=== PATIENT | female | born 1940 | race Caucasian/White ===

== ENCOUNTER → 2016-10-15 | Outpatient (CLI) | payer MEDICARE ==
[~2016-10-15] MED LIST: ACET-2267 PO; ACET325T49 PO; ALB0.5V IH; AMLO5TAB2 PO; ASPI-983 PO; ATEN100T PO; ATOR40TA70 PO; CHOL10007 PO; CLON0.1T PO; DOXA2TAB PO; FURO40TA4 PO; HYDR12.5 PO; LACT1CAP39 PO; LEVO750T39 PO; LISI10TA2 PO; LOPE2CAP14 PO; LOPE2TAB64 PO; MAGN400T6 PO; MELA1TAB10 PO; METO-333 PO; MICONAZOLE 2% TOP; Miconazole 2% Cream VG; OMEG1CAP24 PO; OMEP20CA12 PO; PANT40TA3 PO; PARO-49 PO; POTA20PA28 PO; POTA20TA15 PO; SUCR1TAB PO; SUCR1TAB36 PO; VITA PO
--- NOTE | 2016-10-15 13:41 | Diagnostic Imaging Report ---
EXAMINATION: DEXA scan. INDICATION: Osteopenia. TECHNIQUE: Bone mineral density estimated based on dual energy radiography over the lumbar spine and femoral necks, was performed. FINDINGS: The lumbar spine T-score is -2.1. T score over the left femoral neck is -3.8 and on the right side is -4.1. The bone density over the lumbar spine is probably overestimated secondary to a degenerative sclerosis. IMPRESSION: Marked osteoporosis. Dictated by: Dictated on workstation # [id number]
== END ==
LOC: RAD 11:24
PROVIDERS: ATTEND Nurse Practitioner Family
DX: M81.0 Age-related osteoporosis without current pathological fracture (principal)
CPT/HCPCS: 77080

== ENCOUNTER → 2016-11-03 | Outpatient (CLI) | payer MEDICARE ==
[~2016-11-03] VITALS: Ht 152.4 cm; Wt 62.1 kg
[~2016-11-03] MED LIST changes: +ALPR0.254 PO; +CARB1DRO OU; +CETI10TA17 PO; +CNC1KV INJ; +DENOSUMAB 60 MG/1 ML (PROLIA) SQ SCH; +FERR142T14 PO; +FLUT16SP22 NSEACH; +FOLI0.8T PO; +GABA-486 PO; +GUAI600T43 PO; +IBUP-2055 PO; +KRIL1CAP2 PO; +LOSA25TA21 PO; +MONT10TA24 PO; +MULT1TAB69 PO; +NYST60PO TP; +POTA10TA6 PO; +VITA80006 PO
[2016-11-03 15:50] VITALS: BP 181/77
== END ==
LOC: SDC 15:27
PROVIDERS: ATTEND Nurse Practitioner Family
DX: M81.0 Age-related osteoporosis without current pathological fracture (principal)
CPT/HCPCS: 96372

== ENCOUNTER → 2017-05-03 | Outpatient (CLI) | payer MEDICARE ==
[~2017-05-03] VITALS: Ht 152.4 cm; Wt 62.1 kg
[~2017-05-03] MED LIST changes: +DENOSUMAB 60 MG/1 ML (PROLIA) SQ ONE; -DENOSUMAB 60 MG/1 ML (PROLIA) SQ SCH
[2017-05-03 14:20] VITALS: BP 149/64
== END ==
LOC: SDC 14:12
PROVIDERS: ATTEND Nurse Practitioner Family
DX: M81.0 Age-related osteoporosis without current pathological fracture (principal)
CPT/HCPCS: 96372

== ENCOUNTER → 2017-05-03 | Outpatient (CLI) | payer MEDICARE ==
[~2017-05-03] MED LIST changes: -DENOSUMAB 60 MG/1 ML (PROLIA) SQ ONE
[2017-05-03 19:17] LABS: BASOPHILS # (AUTO) 0.1 10^3/uL (0.0-0.1); BASOPHILS % (AUTO) 1 % (0-10); EOSINOPHILS # (AUTO) 0.1 10^3/uL (0.0-0.3); EOSINOPHILS % (AUTO) 1 % (0-10); HEMATOCRIT 40 % (35-52); HEMOGLOBIN 13.4 G/DL (11.5-16.0); LYMPHOCYTES # (AUTO) 3.3 X 10^3 (1.0-4.0); LYMPHOCYTES % (AUTO) 37 % (12-44); MEAN CORPUSCULAR HEMOGLOBIN 29 PG (25-34); MEAN CORPUSCULAR HGB CONC 33 G/DL (32-36); MEAN CORPUSCULAR VOLUME 87 FL (80-99); MONOCYTES # (AUTO) 0.6 X 10^3 (0.0-1.0); MONOCYTES % (AUTO) 6 % (0-12); NEUTROPHILS % (AUTO) 55 % (42-75); PLATELET COUNT 291 10^3/uL (130-400); RED BLOOD COUNT 4.63 10^6/uL (4.35-5.85); RED CELL DISTRIBUTION WIDTH 13.3 % (10.0-14.5)
[2017-05-03 19:36] LABS: ALBUMIN 4.7 GM/DL (3.2-4.5); BILIRUBIN,TOTAL 0.5 MG/DL (0.1-1.0); CALCIUM 9.7 MG/DL (8.5-10.1); CREATININE SERUM 0.99 MG/DL (0.60-1.30); POTASSIUM 4.1 MMOL/L (3.6-5.0); TOTAL PROTEIN 7.9 GM/DL (6.4-8.2)
== END ==
LOC: LAB 18:55
PROVIDERS: ATTEND Family Medicine
DX: E53.8 Deficiency of other specified B group vitamins (principal); R53.83 Other fatigue
CPT/HCPCS: 36415; 80053; 82607; 84443; 85025

== ENCOUNTER → 2017-09-27 | Outpatient (CLI) | payer MEDICARE ==
--- NOTE | 2017-09-27 16:15 | Diagnostic Imaging Report ---
PROCEDURE: US carotid duplex, bilateral. TECHNIQUE: Multiple real-time grayscale images were obtained over the carotid arteries in various projections, bilaterally. Additional duplex Doppler and color Doppler images were also obtained. INDICATION: Hypertension. FINDINGS: There are no focally elevated velocities in either internal carotid artery. The ICA/CCA ratios are within normal limits, bilaterally. There is antegrade flow in the vertebral arteries, bilaterally. Grayscale images demonstrate minimal carotid plaque, bilaterally. IMPRESSION: Minimal bilateral carotid plaque however spectral analysis shows no evidence of a hemodynamically significant stenosis in either internal carotid artery. Parameters based on the consensus panel Pate-Scale and Doppler ultrasound criteria published January 2003, Radiology, Volume 229. DOPPLER (peak systolic velocity M/S Right Left CCA .80 .88 ICA Proximal .58 .70 ICA Mid .67 .70 ICA Distal .84 .69 RATIO 1.1 .8 ECA .77 .92 VERT .69 .74 Dictated by: Dictated on workstation # [id number]
== END ==
LOC: RAD 14:35
PROVIDERS: ATTEND Family Medicine
DX: I65.23 Occlusion and stenosis of bilateral carotid arteries (principal); I10 Essential (primary) hypertension
CPT/HCPCS: 93880

== ENCOUNTER 2018-05-20 11:08 | Outpatient (CLI) | payer MEDICARE ==
[~2018-05-20] VITALS: Ht 147.3 cm; Wt 54.5 kg
[~2018-05-20 11:08] MED LIST changes: -AMLO5TAB2 PO; +AMLO5TAB9 PO; -LOSA25TA21 PO; +LOSA25TA41 PO
[2018-05-20] MEDS ORDERED: DENOSUMAB 60 MG/1 ML (PROLIA) SQ SCH (11:17)
[2018-05-20] MEDS ORDERED: DENOSUMAB 60 MG/1 ML (PROLIA) SQ NR (11:29)
[2018-05-20 11:40] VITALS: BP 106/98
== END 2018-05-20 11:40 | disposition home or self-care (01) ==
LOC: SDC 11:08
PROVIDERS: ATTEND Nurse Practitioner Family
DX: M81.0 Age-related osteoporosis without current pathological fracture (principal)
CPT/HCPCS: 96372

== ENCOUNTER → 2018-12-07 | Outpatient (CLI) | payer MEDICARE ==
[~2018-12-07] VITALS: Ht 149.9 cm; Wt 54.1 kg
[~2018-12-07] MED LIST changes: +DENOSUMAB 60 MG/1 ML (PROLIA) SQ ONE; -OMEP20CA12 PO; +OMEP20CA13 PO
[2018-12-07 15:43] VITALS: BP 169/78
== END ==
LOC: SDC 15:25
PROVIDERS: ATTEND Nurse Practitioner Family
DX: M81.0 Age-related osteoporosis without current pathological fracture (principal)
CPT/HCPCS: 96372

== ENCOUNTER 2019-05-04 12:45 | Inpatient (IN) | payer MEDICARE ==
[~2019-05-04] VITALS: Ht 149.9 cm; Wt 55.2 kg
[~2019-05-04 12:45] MED LIST changes: -DENOSUMAB 60 MG/1 ML (PROLIA) SQ ONE; -IBUP-2055 PO; +IBUP-2473 PO; -KRIL1CAP2 PO; +KRIL1CAP4 PO; -MAGN400T6 PO; +MAGN400T8 PO; -MONT10TA24 PO; +MONT10TA26 PO; -OMEP20CA13 PO; +OMEP20CA18 PO
[2019-05-04] MEDS ORDERED: ONDANSETRON 4 MG (ZOFRAN) ORAL DISSOLVE TAB PO PRN (13:45)
[2019-05-04] MEDS ORDERED: LOPERAMIDE 2 MG (IMODIUM) TABLET PO PRN (13:45)
[2019-05-04] MEDS ORDERED: MELATONIN 3 MG TABLET PO PRN (13:45)
[2019-05-04] MEDS ORDERED: BISACODYL 10 MG SUPP (DULCOLAX) PR PRN (13:45)
[2019-05-04] MEDS ORDERED: DOCUSATE SODIUM 100 MG (COLACE) CAP PO PRN (13:45)
[2019-05-04] MEDS ORDERED: FLEET ENEMA ADULT 1 EA BTL PR PRN (13:45)
[2019-05-04] MEDS ORDERED: LACTULOSE SYRUP 10GM/15ML (ENULOSE) 30ML UDC PO PRN (13:45)
[2019-05-04] MEDS ORDERED: diphenhydrAMINE 25 MG TAB (BENADRYL) PO PRN (13:45)
[2019-05-04] MEDS ORDERED: ALPRAZolam 0.25 MG (XANAX) TAB PO PRN (13:45)
[2019-05-04] MEDS ORDERED: CALCIUM CARBONATE 500 MG (TUMS) TAB.CHEW PO PRN (13:45)
[2019-05-04] MEDS ORDERED: guaiFENesin/CODEINE (ROBITUSSIN AC) 10ML UDC PO PRN (13:45)
--- NOTE | 2019-05-04 15:10 | NUR ---
RISA LO admitted to room 229-1, with an admitting diagnosis of METABOLIC ENCEPHALOPATHY, on 05/04/19 from via , accompanied by STAFF. RISA LO introduced to surroundings, call light, bed controls, phone, TV, temperature control, lights, meal times, smoking policy, visitor policy, side rail policy, bathrooms and showers. Patient Rights given to patient in the handbook.RSIA LO verbalizes understanding that [facility] is not responsible for the loss or damage to any personal effects or valuables that are kept in the patients posession during their hospitalization. The following Patient Care Plans were discussed with the PT: Discharge Planning, FALL RISK AND ACTIVITY INTOLERANCE. RISA LO verbalizes understanding of Interdisciplinary Patient Education. Patient received Patient Rights Booklet, which includes Privacy Act Statement and Data Collection Information Summary.
[2019-05-04 15:43] VITALS: BP 172/78
--- NOTE | 2019-05-04 15:51 | Physical Therapy Evaluation ---
PT Evaluation-General Medical Diagnosis Admission Date May 04, 2019 at 15:15 Medical Diagnosis: acute metabolic encephalopathy Onset Date: May 01, 2019 Therapy Diagnosis Therapy Diagnosis: generalized weakness/debility/impaired mobility Height/Weight Height (Feet): 4 Height (Inches): 10.00 Weight (Pounds): 120 Weight (Ounces): 4.0 Precautions Precautions/Isolations: Fall Prevention, Standard Precautions Referral Physician: Brisa Reason for Referral: Evaluation/Treatment Medical History Pertinent Medical History: Arthritis, CVA, HTN Additional Medical History lactic acidosis/JULIO C/hyponatremia Current History transfer from [facility] due to fall at home resulting in multiple contusions Reviewed History: Yes Social History Home: Single Level Current Living Status: Alone Entry Into Home: Stairs With Railing PT Steps Into Home: 1 Prior Prior Level of Function SCALE: Activities may be completed with or without assistive devices. 1-Khgajpbpvf-xknmiem completes the activity by him/herself with no assistance from a helper. 5-Set-up or Clean-up Assistance-helper sets up or cleans up; patient completes activity. [place] assists only prior to or following the activity. 4-Supervision or Touching Assistance-helper provides verbal cues and/or touching/steadying and/or contact guard assistance as patient completes activity. Assistance may be provided throughout the activity or intermittently. 3-Partial/Moderate Assistance-helper does LESS THAN HALF the effort. [place] lifts, holds or supports trunk or limbs, but provides less than half the effort. 2-Substantial/Maximal Assistance-helper does MORE THAN HALF the effort. [place] lifts or holds trunk or limbs and provides more than half the effort. 6-Pvrqxdnbs-fsysor does ALL the effort. Patient does none of the effort to complete the activity. Or, the assistance of 2 or more helpers is required for the patient to complete the activity. If activity was not attempted, code reason: 7-Patient Refused. 9-Not Applicable-not attempted and the patient did not perform the activity before the current illness, exacerbation or injury. 10-Not Attempted due to Environmental Limitations-(lack of equipment, weather restraints, etc.). 88-Not Attempted due to Medical Conditions or Safety Concerns. Bed Mobility: 6 Transfers (B,C,W/C): 6 Gait: 6 Stairs: 6 Indoor Mobility (Ambulation): Independent Stairs: Independent Prior Devices Use: Walker assistance at home with self care, meals and mobility PT Evaluation-Current Subjective Patient is confused, however, agreeable to participate with skilled therapy. Pain Numeric Pain Scale: 0-No Pain Location: No Pain Reported Objective Patient Orientation: Confused ROM/Strength ROM Lower Extremities bilateral LE WFL Strength Lower Extremities 3/5 grossly bilateral LE Integumentary/Posture Integumentary refer to nursing notes Bowel Incontinence: No Bladder Incontinence: Yes Posture kyphotic Neuromuscular (Tone, Coordination, Reflexes) noted tremor bilateral UE's/gross coordination intact Sensory Vision: Wears Glasses Hearing: Functional Sensation Right Lower Extremit: Intact Sensation Left Lower Extremity: Intact Transfers Roll Left to Right (QC): 5 Sit to Lying (QC): 5 Lying to Sitting/Side of Bed(Q: 5 Sit to Stand (QC): 4 Chair/Jgb-nm-Jkfvb Xfer(QC): 4 Toilet Transfer: 3 Car Transfer (QC): 2 Gait Does the Patient Walk?: Yes Mode of Locomotion: Walk Anticipated Mode of Locomotion: Walk Walk 10 feet (QC): 3 Walk 50 ft with 2 Turns(QC): 3 Walk 150 ft (QC): 88 Walking 10ft/uneven surface-QC: 3 Distance: 50' Gait Assistive Device: FWW Comments/Gait Description slow, shuffle gait sequence Wheelchair Training Does the Pt Use a Wheelchair?: No Stairs #of Steps: 1 1 Step (curb) (QC): 3 4 Steps (QC): 9 12 Steps (QC): 9 Walking Assistive Device: Walker Balance Sitting Static: Normal Sitting Dynamic: Normal Standing Static: Fair Standing Dynamic: Fair Picking up an Object (QC): 88 Treatment assisted with toileting to cleanse patient after use. Assistance to pull pants up and down due to confusion and inability to complete task. Assessment/Needs 78 y.o. female, will benefit from skilled PT to address functional strength and mobility to improve current LOF to safely return to home or care facility at maximum LOF. Rehab Potential: Fair PT Snf Goals Scientific Advisor Goals PT Snf Goals Time Frame: Jun 03, 2019 Roll Left & Right (QC): 6 Sit to Lying (QC): 6 Lying-Sitting on Side/Bed(QC): 6 Sit to Stand (QC): 5 Chair/Kmr-ev-Ozmzg Xfer(QC): 5 Toilet Transfer (QC): 5 Car Transfer (QC): 5 Does the Patient Walk: Yes Walk 10 feet (QC): 5 Walk 50ft with 2 Turns (QC): 5 Walk 150 ft (QC): 5 Walking 10ft on Uneven Surface: 5 1 Step (curb) (QC): 5 4 Steps (QC): 9 12 Steps (QC): 9 Picking up an Object (QC): 5 PT Plan Problem List Problem List: Activity Tolerance, Functional Strength, Safety, Balance, Gait, Transfer, Bed Mobility Treatment/Plan Treatment Plan: Continue Plan of Care Treatment Plan: Bed Mobility, Concurrent Therapy, Education, Functional Activity Oliverio, Functional Strength, Group Therapy, Gait, Safety, Therapeutic Exercise, Transfers Treatment Duration: Jun 03, 2019 Frequency: At least 5 of 7 days/Wk (IRF) Estimated Hrs Per Day: 1.5 hours per day Patient and/or Family Agrees t: Yes Safety Risks/Education Patient Education: Safety Issues Teaching Recipient: Patient Teaching Methods: Discussion Response to Teaching: Reinforcement Needed Time/GCodes Time In: 1510 Time Out: 1540 Total Billed Treatment Time: 30 Total Billed Treatment 1 visit EVModC 15 min FA 15 min JOVITA ABARCA PT May 04, 2019 15:51
[2019-05-04] MEDS ORDERED: SUCR1TAB36 PO (16:17)
[2019-05-04] MEDS ORDERED: [UNRECOGNIZED DRUG - CODE] PO (16:17)
[2019-05-04] MEDS ORDERED: POTA20PA28 PO (16:17)
[2019-05-04] MEDS ORDERED: ACET-2650 PO (16:17)
[2019-05-04] MEDS ORDERED: PANT40TA2 PO (16:17)
[2019-05-04] MEDS ORDERED: ASPI-999 PO (16:17)
[2019-05-04] MEDS ORDERED: DULO20CA PO (16:17)
[2019-05-04] MEDS ORDERED: ALBU2.5V4 NEB (16:17)
[2019-05-04] MEDS: ENOXAPARIN 40 MG/0.4 ML (LOVENOX) SYR SC SCH (17:33)
--- NOTE | 2019-05-04 17:44 | PM&R Post Admission Assessment ---
PM&R HP Date of Visit: May 04, 2019 Time of Visit: 17:45 History of Present Illness CC: Metabolic encephalopathy in need of recovery in IRF HPI: This is a 78yoWF clinic patient of Dr Tinsley who lives at home but family heavily involved in her care including meals on wheels, daughter organizes her medication with set up, personal care assistants come in frequently in the home to help bathe and manage her other needs who presents to the IRF after a hospital course at [facility] where she was brought from her home in [place] for AMS. Initially she was assessed to have had a CVA but upon further w/u MRI disproved an acute CVA but identified a previous old event c/w small strokes. She sees Dr Tinsley every month due to her complex medical issues and also sees Dr Eckert for severe neuropathy and toe dysfunction bilaterally. She uses a walker at home and appears to be very debilitated and frail. Patient is on a enormous number of medications so we will try to minimize meds since it appears that the AMS is from medication side effects and family and patient are willing to work through the details tomorrow. Norvasc given 1 dose 5mg now for elevated BP. Past Fdbpnjn-Conpfx-Hmkvcx Hx Past Med/Social Hx: Reviewed Nursing Past Med/Soc Hx, Reviewed and Corrections made Patient Social History Marrital Status: single Employed/Student: retired Alcohol Use: Denies Use Recreational Drug Use: No Smoking Status: Never a Smoker 2nd Hand Smoke Exposure: No Physical Abuse Screen: No Sexual Abuse: No Recent Foreign Travel: No Contact w/other who traveled: No Recent Hopitalizations: No Recent Infectious Disease Expo: No Immunizations Up To Date Tetanus Booster (TDap): Unknown Date of Pneumonia Vaccine: Nov 08, 2014 Date of Influenza Vaccine: Dec 13, 2018 Seasonal Allergies Seasonal Allergies: No Past Medical History Surgeries: Bowel Surgery, Hysterectomy, Orthopedic Respiratory: Pneumonia Currently Using CPAP: No Currently Using BIPAP: No Cardiac: High Cholesterol, Hypertension Neurological: Neuropathy, TIA Reproductive: Yes (complete hysterectomy in her 20's r/t infection "that didn't clear up") Sexually Transmitted Disease: No HIV/AIDS: No Genitourinary: Bladder Infection Gastrointestinal: Gastroesophageal Reflux, Chronic Constipation, Chronic Diarrhea Musculoskeletal: Osteoporosis, Arthritis, Chronic Back Pain, Fractures HEENT: Cataract, Macular Degeneration Loss of Vision: Bilateral Hearing Impairment: Hard of Hearing Psychosocial: Sleep Difficulties, Anxiety, Depression Family History Cardiovascular disease 19 FATHER Heart Disease, Hypertension Prior Level of Function Bed Mobility: 6 Transfers: 6 Gait: 6 Stairs: 6 Indoor Mobility (Ambulation): Independent Stairs: Independent Prior Devices Use: Walker Current Level of Fuctioning Roll Left to Right: 5 Sit to Lyin Lying to Sitting/Side of Bed: 5 Sit to Stand: 4 Chair/Wzw-qh-Gwstc Xfer: 4 Car Transfer: 2 Does the Patient Walk: Yes Mode of Locomotion: Walk Anticipated Mode of Locomotion: Walk Walk 10 feet: 3 Walk 50 ft with 2 Turns: 3 Walk 150 ft: 88 Walking 10ft on uneven surface: 3 Gait Assistive Device: FWW Does the Pt Use a Wheelchair: No #of Steps: 1 1 Step (curb): 3 4 Steps: 9 Walking Assistive Device: Walker 12 Steps: 9 Picking up an Object: 88 PM&R Allergy/Meds/Data Review Allergies Coded Allergies: tetracycline (Verified Allergy, Mild, 05/04/19) rash Home Medications Scheduled Acetaminophen (Tylenol Arthritis), 650 MG PO Q6H, (Reported) Albuterol Sulfate (Albuterol Sulfate), 2.5 MG INH QID, (Reported) Amlodipine Besylate (Amlodipine Besylate), 5 MG PO DAILY, (Reported) Aspirin (Aspirin), 81 MG PO DAILY, (Reported) Atenolol (Tenormin), 100 MG PO DAILY, (Reported) Atorvastatin Calcium (Atorvastatin Calcium), 40 MG PO HS, (Reported) Cetirizine HCl (Cetirizine HCl), 10 MG PO DAILY, (Reported) Cholecalciferol (Vitamin D3) (Vitamin D3), 1,000 UNIT PO 1200, (Reported) Cyanocobalamin (Cyanocobalamin Injection), 1 ML INJ MONTHLY, (Reported) Duloxetine HCl (Cymbalta), 20 MG PO HS, (Reported) Ferrous Sulfate (Slow Fe), 142 MG PO DAILY, (Reported) Fluticasone Propionate (Fluticasone Propionate), 1 SPRAY NSEACH BID, (Reported) Folic Acid (Folic Acid), 0.8 MG PO BID, (Reported) Gabapentin (Gabapentin), 100 MG PO 1200, (Reported) Gabapentin (Gabapentin), 200 MG PO HS, (Reported) Guaifenesin (Mucinex), 600 MG PO BID, (Reported) Krill Oil/[place]-3/Dha/Epa ([place]-3 Krill Oil Softgel), 1 CAP PO HS, (Reported) Lactobacillus Rhamnosus GG (Culturelle), 1 CAP PO 1200, (Reported) Losartan Potassium (Losartan Potassium), 25 MG PO DAILY, (Reported) Magnesium Oxide (Magnesium Oxide), 400 MG PO BID, (Reported) Melatonin/Pyridoxine (Melatonin 3 mg Tablet), 1 TAB PO HS, (Reported) Metoprolol Tartrate (Metoprolol Tartrate), 12.5 MG PO BID, (Reported) Montelukast Sodium (Montelukast Sodium), 10 MG PO HS, (Reported) Multivitamin (Multivitamins), 1 TAB PO 1200, (Reported) Omeprazole (Omeprazole), 20 MG PO BID, (Reported) Pantoprazole Sodium (Protonix), 40 MG PO BID, (Reported) Potassium Chloride (Klor-Con 10), 10 MEQ PO BID, (Reported) Potassium Chloride (Potassium Chloride), 20 MEQ PO BID WITH MEALS, (Reported) Sucralfate (Sucralfate), 1 GM PO ACHS, (Reported) Sucralfate (Carafate), 1 GM PO DAILY, (Reported) Vitamin A (Vitamin A), 8,000 UNIT PO DAILY, (Reported) Scheduled PRN Alprazolam (Alprazolam), 0.25 MG PO HS PRN for SLEEP, (Reported) Carboxymethylcellulose Sodium (Refresh Plus), 1 DROP OU PRN PRN for DRY EYES, (Reported) Ibuprofen (Ibuprofen), 200-400 MG PO PRN PRN for PAIN-MILD, (Reported) Nystatin (Nystop), TP QID PRN for RASH, (Reported) Miscellaneous Medications Losartan Potassium (Losartan Potassium), (Reported) Current Medications Current Medications Reviewed Review of Systems Constitutional: see HPI, dizziness, malaise, weakness, weight loss EENTM: no symptoms reported Respiratory: no symptoms reported Cardiovascular: no symptoms reported Gastrointestinal: diarrhea Genitourinary: no symptoms reported Musculoskeletal: back pain, joint pain, muscle pain, muscle stiffness, muscle cramps Skin: no symptoms reported Psychiatric/Neurological: No Symptoms Reported, Anxiety, Paresthesia, Weakness, Other (numbness, burning of feet) All Other Systems Reviewed Negative Unless Noted: Yes Physical Exam Physical Exam Vital Signs Vital Signs - First Documented 05/04/19 15:43 Temp 37.2 Pulse 95 Resp 20 B/P (MAP) 172/78 Pulse Ox 95 O2 Delivery Room Air Capillary Refill : Height, Weight, BMI Height: 4'10.00" Weight: 120lbs. 4.0oz. [id number]; 24.56 BMI Method:Stated General Appearance: No Apparent Distress, WD/WN, Chronically ill, Thin, Other (slow responses appears chronic, frail, pale) Eyes: Bilateral Eye Normal Inspection, Bilateral Eye PERRL HEENT: PERRL/EOMI, Normal ENT Inspection, Pharynx Normal Neck: Full Range of Motion, Normal Inspection, Non Tender, Supple, Carotid Bruit Respiratory: Chest Non Tender, Lungs Clear, Normal Breath Sounds, No Accessory Muscle Use, No Respiratory Distress Cardiovascular: Regular Rate, Rhythm, No Edema, No Gallop, No JVD, No Murmur, Normal Peripheral Pulses Gastrointestinal: Normal Bowel Sounds, No Organomegaly, No Pulsatile Mass, Non Tender, Soft Back: Normal Inspection, No CVA Tenderness, No Vertebral Tenderness Extremity: Normal Capillary Refill, Normal Inspection, Normal Range of Motion, Non Tender, No Calf Tenderness, No Pedal Edema Neurologic/Psychiatric: Alert, Oriented x3, No Motor/Sensory Deficits, costumer assistant II- XII Norm as Tested, Abnormal Gait, Depressed Affect, Sensory Deficit (bilateral feet and toes) Skin: Normal Color, Warm/Dry Lymphatic: No Adenopathy PM&R Medical Assessment & Plan REHAB/MEDICAL ASSESSMENT AND PLAN: REHAB IMPAIRMENT GROUP: Metabolic encephalopathy ETIOLOGIC DIAGNOSIS: Metabolic encephalopathy The comorbidities that impact the patients function and/or functional outcome by: Frail status, multiple medications, chronic debility, fall risk, neuropathy REHAB PLAN: The patient is being admitted to our comprehensive inpatient rehabilitation facility and can tolerate the intensity of service consisting of at least: 180 minutes of therapy a day, 5 out of 7 days a week Rehab treatment will consist of: PT OT ST will all work to improve patient's stamina and mobility and work on cognition and prevent falls in order to return home The patient/family has a good understanding of our discharge process and will benefit from an interdisciplinary inpatient rehabilitation program. The patient has potential to make improvement and is in need of at least two of the following multidisciplinary therapies including but not limited to physical, occupational, speech, and prosthetics and orthotics. Additionally the patient will need services from respiratory, nutritional services, wound care, psychology, etc. (Customize this to each patient). Given the patients complex condition and risk of further medical complications, rehabilitation services cannot be safely or effectively provided at a lower level of care such as a custodial facility. BARRIERS TO DISCHARGE: Frail status and lives at home alone but has multiple facets for outside support ESTIMATED LOS: 7 days DISPOSITION: Home RELEVANT CHANGES SINCE PREADMISSION SCREENING: I have compared the patients medical and functional status at the time of the preadmission screening and there are: no changes PROGNOSIS: Good REHABILITATION GOALS: 1. PT OT ST will all work to improve patient's stamina and mobility and work on cognition and prevent falls in order to return home All the above goals were reviewed with the patient and he/she is in agreement. By signing this document, I acknowledge that I have personally performed a full physical examination on this patient within 24 hours of admission to this inpatient rehabilitation facility and have determined the patient to be able to tolerate the above course of treatment at an intensive level for a reasonable period of time. I will be completing a detailed individualized Plan of Care for this patient by day #4 of the patients stay based upon the Preadmission Screen, the Post-Admission Evaluation, and the therapy evaluations. Admission Dx/Comorbidities: (1) Encephalopathy ICD Codes: G93.40 - Encephalopathy, unspecified (2) Frailty ICD Codes: R54 - Age-related physical debility (3) Neuropathy ICD Codes: G62.9 - Polyneuropathy, unspecified (4) Polypharmacy ICD Codes: Z79.899 - Other lobsterman (current) drug therapy (5) Falls ICD Codes: W19.XXXA - Unspecified fall, initial encounter (6) Cerebrovascular disease ICD Codes: I67.9 - Cerebrovascular disease, unspecified (7) Hypertension ICD Codes: I10 - Essential (primary) hypertension CAIT RAMIREZ DO May 04, 2019 17:44
[2019-05-04] MEDS ORDERED: LOSA100T57 (17:49)
[2019-05-04 18:00] VITALS: BP 174/76
[2019-05-04] MEDS ORDERED: amLODIPine 5 MG (NORVASC) TAB PO NR (18:00)
[2019-05-04] MEDS: SENNA W/DOCUSATE (SENOKOT S) TABLET PO SCH (20:07)
[2019-05-04] MEDS: polyethylene glycoL POWDER 17 GM (MIRALAX) PACK PO SCH (20:07)
[2019-05-04] MEDS: DOCUSATE SODIUM 100 MG (COLACE) CAP PO SCH (20:07)
[2019-05-05] MEDS ORDERED: ACETAMINOPHEN 325 MG TABLET ONE (00:05)
[2019-05-05] MEDS: ACETAMINOPHEN 325 MG TABLET PO PRN ×2 (00:17→10:16)
[2019-05-05 05:19] VITALS: BP 164/76
[2019-05-05 05:20] LABS: BASOPHILS % (AUTO) 0 % (0-10); EOSINOPHILS # (AUTO) 0.2 10^3/uL (0.0-0.3); EOSINOPHILS % (AUTO) 2 % (0-10); HEMATOCRIT 32 % (35-52); HEMOGLOBIN 10.1 G/DL (11.5-16.0); LYMPHOCYTES # (AUTO) 1.7 X 10^3 (1.0-4.0); LYMPHOCYTES % (AUTO) 17 % (12-44); MEAN CORPUSCULAR HEMOGLOBIN 29 PG (25-34); MEAN CORPUSCULAR HGB CONC 32 G/DL (32-36); MEAN CORPUSCULAR VOLUME 92 FL (80-99); MEAN PLATELET VOLUME 9.3 FL (7.4-10.4); MONOCYTES # (AUTO) 0.9 X 10^3 (0.0-1.0); MONOCYTES % (AUTO) 9 % (0-12); NEUTROPHILS # (AUTO) 7.4 X 10^3 (1.8-7.8); NEUTROPHILS % (AUTO) 72 % (42-75); PLATELET COUNT 247 10^3/uL (130-400); RED CELL DISTRIBUTION WIDTH 12.9 % (10.0-14.5); WHITE BLOOD COUNT 10.3 10^3/uL (4.3-11.0)
[2019-05-05 05:38] LABS: ALBUMIN 3.6 GM/DL (3.2-4.5); BILIRUBIN,TOTAL 0.4 MG/DL (0.1-1.0); CALCIUM 10.2 MG/DL (8.5-10.1); CREATININE SERUM 0.91 MG/DL (0.60-1.30); POTASSIUM 4.4 MMOL/L (3.6-5.0); TOTAL PROTEIN 6.1 GM/DL (6.4-8.2)
[2019-05-05] MEDS ORDERED: amLODIPine 5 MG (NORVASC) TAB PO SCH (09:00)
--- NOTE | 2019-05-05 09:31 | Occupational Therapy Eval ---
OT Evaluation-General/PLF Medical Diagnosis Admission Date May 04, 2019 at 15:15 Medical Diagnosis: acute metabolic encephalopathy Onset Date: May 01, 2019 Therapy Diagnosis Therapy Diagnosis: Decreased ADL function Height/Weight Height (Feet): 4 Height (Inches): 10.00 Weight (Pounds): 120 Weight (Ounces): 4.0 Precautions Precautions/Isolations: Fall Prevention, Standard Precautions Safety Interventions: Bed Exit Alarm, Reorient-PRN Weight Bear Status Weight Bearing Restriction: Weight Bearing/Tolerated Referral Physician: Brisa Referral Reason: Activity Tolerance, Self Care, Evaluation/Treatment, Strengthening/ROM Medical History Pertinent Medical History: Arthritis, CVA, HTN Additional Medical History high cholesterol, HTN, neuropathy, arthritis, macular degeneration, anx/ depression, [place] Current History Recent fall when pt attempted to pick item off floor, states walker rolled away from her and pt called daughter from floor. Pt admitted to [facility] with AMS/ Reviewed History: Yes Social History Home: Single Level Current Living Status: Alone Entry Into Home: Stairs With Railing Steps Into Home: 1 ADL-Prior Level of Function SCALE: Activities may be completed with or without assistive devices. 2-Ptsjbzccqb-kvsjbbl completes the activity by him/herself with no assistance from a helper. 5-Set-up or Clean-up Assistance-helper sets up or cleans up; patient completes activity. [place] assists only prior to or following the activity. 4-Supervision or Touching Assistance-helper provides verbal cues and/or touching/steadying and/or contact guard assistance as patient completes activity. Assistance may be provided throughout the activity or intermittently. 3-Partial/Moderate Assistance-helper does LESS THAN HALF the effort. [place] lifts, holds or supports trunk or limbs, but provides less than half the effort. 2-Substantial/Maximal Assistance-helper does MORE THAN HALF the effort. [place] lifts or holds trunk or limbs and provides more than half the effort. 6-Zavpqsrwe-ifvuav does ALL the effort. Patient does none of the effort to complete the activity. Or, the assistance of 2 or more helpers is required for the patient to complete the activity. If activity was not attempted, code reason: 7-Patient Refused. 9-Not Applicable-not attempted and the patient did not perform the activity before the current illness, exacerbation or injury. 10-Not Attempted due to Environmental Limitations-(lack of equipment, weather restraints, etc.). 88-Not Attempted due to Medical Conditions or Safety Concerns. ADL PLOF Comments Pt receives assist with showering/ dressing 2x per week. Pt states aide assists and completes all of showering/ dressing. Pt receives meals on wheels 5/7 days, does not leave home wihtout assist. Self Care: Needed Some Help Functional Cognition: Independent DME/Equipment: Bath Chair, Grab Bars, Shower, Tall Toilet DME/Equipment Comments 2 walkers, grab bars in shower/ near toilet, shower, shower chair Occupation: retired Drive Self: No Leisure Interests: cat OT Current Status Subjective Pt seen in recliner chair, grandson present. Pt alert and orientedx3. Pt agrees to OT tx session and eval. Mental Status/Objective Patient Orientation: Person, Place, Situation Current Glasses/Contacts: Yes Hearing Aids: No Dentures/Partials: Yes Hand Dominance: Right Upper Extremity ROM WFL : BUE ~120* shoulder flexion Upper Extremity Coordination WFL BUE Upper Extremity Sensation WFL BUE states at times pt's fingers and cheeks become numb Upper Extremity Strength Decreased bilaterally (4-/5) ADL-Treatment Eating (QC): 4 (Able to complete with handing drink to pt. Pt states she does not have any issues eating at home) Oral Hygiene (QC): 6 (completes in chair prior to session.) Shower/Bathe Self (QC): 2 (Max A for LB/ back/ bottom/ hair- pt requires max A for drying off) Upper Body Dressing (QC): 5 (s/u) Lower Body Dressing (QC): 2 (max A) On/Off Footwear (QC): 2 (max A ) Toileting Hygiene (QC): 3 (CGA throughout, mod a for thoroughness.) Other Treatments Pt educated on OT role and ARU expectations. Pt completes eval in chair, good historian. Pt completes UB ROM/ MMT screening. Pt agreeable to all ADLs this morning. Pt completes all ADLs with increased time, derick cream applied under breasts, on bottom/ elisa area per pt request. Pt states she is able to complete clothing changing at home, plan to complete AE training for safer completion due to fall. Pt completes shower/ hair brushing and returns to recliner chair. All needs met, call light in reach. Education OT Patient Education: Correct positioning, Energy conservation, Modified ADL techniques, Purpose of tx/functional activities, Rehab process, Safety issues Teaching Recipient: Patient Teaching Methods: Demonstration, Discussion Response to Teaching: Verbalize Understanding, Return Demonstration, Reinforcement Needed OT Short Term Goals Short Term Goals Upper body dressin Lower body dressin OT Loss Prevention Analyst Goals Loss Prevention Analyst Goals Time Frame: May 19, 2019 Eating (QC): 6 Oral Hygiene (QC): 6 Toileting Hygiene (QC): 6 Shower/Bathe Self (QC): 6 Upper Body Dressing (QC): 6 Lower Body Dressing (QC): 6 On/Off Footwear (QC): 6 Additional Goals: 1-Demonstrate ADL Tasks, 2-Verbalize Understanding, 3- ImproveStrength/Oliverio 1=Demonstrate adherence to instructed precautions during ADL tasks. 2=Patient will verbalize/demonstrate understanding of assistive devices/modifications for ADL. 3=Patient will improve strength/tolerance for activity to enable patient to perform ADL's. OT Education/Plan Problem List/Assessment Assessment: Decreased Activ Tolerance, Decreased UE Strength, Impaired Funct Balance, Impaired I ADL's, Impaired Self-Care Skills Discharge Recommendations Plan/Recommendations: Continue POC Therapy Discharge Recommendati: Scheduled Assistance Equpiment Recommendations-D/C: Hip Kit Treatment Plan/Plan of Care Treatment,Training & Education: Yes Patient would benefit from OT for education, treatment and training to promote independence in ADL's, mobility, safety and/or upper extremity function for ADL's. Plan of Care: ADL Retraining, Caregiver Training, Functional Mobility, Group Exercise/Act as Ind, UE Funct Exercise/Act Treatment Duration: May 19, 2019 Frequency: At least 5 of 7 days/Wk (IRF) Estimated Hrs Per Day: 1.5 hours per day Agreement: Yes Rehab Potential: Fair Time/GCodes Start Time: 08:00 Stop Time: 09:30 Total Time Billed (hr/min): 90 Billed Treatment Time 1, EVM (15), ADL 5 (75), 90 YULIA SULLIVAN OTR May 05, 2019 09:31
--- NOTE | 2019-05-05 09:41 | PM&R Progress Note ---
Subjective HPI/CC On Admission Date Seen by Provider: May 05, 2019 Time Seen by Provider: 09:45 Subjective/Events-last exam Patient overall improved Lifeline recommended once she DC home Hgb 10.6 and stable Bed alarm on at night Dr Tinsley minimized her meds and we talked about it in-depth Mild tremor noted no change from baseline Checked meds and labs Reviewed therapy notes Conferred with utility lineman of Systems General: Fatigue Neurological: Confusion Objective Exam Vital Signs Vital Signs Date Time Temp Pulse Resp B/P (MAP) Pulse Ox O2 Delivery O2 Flow Rate FiO2 05/06/19 09:00 Room Air 05/06/19 05:38 37.2 82 18 158/72 (100) 94 Capillary Refill : Less Than 3 Seconds General Appearance: No Apparent Distress, WD/WN, Chronically ill, Thin, Other (slow responses appears chronic, frail, pale) HEENT: PERRL/EOMI, Normal ENT Inspection, Pharynx Normal Neck: Full Range of Motion, Normal Inspection, Non Tender, Supple, Carotid Bruit Respiratory: Chest Non Tender, Lungs Clear, Normal Breath Sounds, No Accessory Muscle Use, No Respiratory Distress Cardiovascular: Regular Rate, Rhythm, No Edema, No Gallop, No JVD, No Murmur, Normal Peripheral Pulses Gastrointestinal: Normal Bowel Sounds, No Organomegaly, No Pulsatile Mass, Non Tender, Soft Back: Normal Inspection, No CVA Tenderness, No Vertebral Tenderness Extremity: Normal Capillary Refill, Normal Inspection, Normal Range of Motion, Non Tender, No Calf Tenderness, No Pedal Edema Neurologic/Psychiatric: Alert, Oriented x3, No Motor/Sensory Deficits, estimator lumber II- XII Norm as Tested, Abnormal Gait, Depressed Affect, Sensory Deficit (bilateral feet and toes) Skin: Normal Color, Warm/Dry Lymphatic: No Adenopathy Results/Procedures Lab Laboratory Tests 05/06/19 05:31 Patient resulted labs reviewed. FIM Transfers Therapy Code Descriptions/Definitions Functional [place] Measure: 0=Not Assessed/NA 4=Minimal Assistance 1=Total Assistance 5=Supervision or Setup 2=Maximal Assistance 6=Modified [place] 3=Moderate Assistance 7=Complete IndependenceSCALE: Activities may be completed with or without assistive devices. 3-Dvoulnknwv-coxtvou completes the activity by him/herself with no assistance from a helper. 5-Set-up or Clean-up Assistance-helper sets up or cleans up; patient completes activity. [place] assists only prior to or following the activity. 4-Supervision or Touching Assistance-helper provides verbal cues and/or touching/steadying and/or contact guard assistance as patient completes activity. Assistance may be provided throughout the activity or intermittently. 3-Partial/Moderate Assistance-helper does LESS THAN HALF the effort. [place] lifts, holds or supports trunk or limbs, but provides less than half the effort. 2-Substantial/Maximal Assistance-helper does MORE THAN HALF the effort. [place] lifts or holds trunk or limbs and provides more than half the effort. 0-Frlkysppg-kropdz does ALL the effort. Patient does none of the effort to complete the activity. Or, the assistance of 2 or more helpers is required for the patient to complete the activity. If activity was not attempted, code reason: 7-Patient Refused. 9-Not Applicable-not attempted and the patient did not perform the activity before the current illness, exacerbation or injury. 10-Not Attempted due to Environmental Limitations-(lack of equipment, weather restraints, etc.). 88-Not Attempted due to Medical Conditions or Safety Concerns. Roll Left to Right (QC): 5 Sit to Lying (QC): 5 Sit to Stand (QC): 4 Chair/Ptm-sm-Paywo Xfer(QC): 4 Car Transfer (QC): 2 Gait Training Does the Patient Walk?: Yes Walk 10 feet (QC): 3 Walk 50 ft with 2 Turns(QC): 3 Walk 150 ft (QC): 88 Walking 10ft/uneven surface-QC: 3 Gait Assistive Device: FWW Wheelchair Training Does the Pt Use a Wheelchair?: No Stair Training #of Steps: 1 1 Step (curb) (QC): 3 4 Steps (QC): 9 12 Steps (QC): 9 Balance Picking up an Object (QC): 88 Assessment/Plan Assessment and Plan Assess & Plan/Chief Complaint Assessment: Metabolic encephalopathy Chronic debility and frail status Anemia of chronic disease HTN labile Neuropathy Cerebrovascular disease on MRI Falls Plan: IRF protocol Monitor for falls Bed alarm (1) Encephalopathy (2) Frailty (3) Neuropathy (4) Polypharmacy (5) Falls Qualifiers: Encounter type: subsequent encounter Qualified Codes: W19.XXXD - Unspecified fall, subsequent encounter (6) Cerebrovascular disease (7) Hypertension Qualifiers: Hypertension type: essential hypertension Qualified Codes: I10 - Essential (primary) hypertension CAIT RAMIREZ DO May 05, 2019 09:40
--- NOTE | 2019-05-05 09:57 | NUR ---
Dr. Ledezma notified Dr. Tinsley of consult
[2019-05-05 10:09] VITALS: BP 156/87
[2019-05-05] MEDS ORDERED: DULO30CA49 PO (10:20)
[2019-05-05] MEDS ORDERED: LOPE2TAB34 PO (10:20)
--- NOTE | 2019-05-05 10:31 | NUR ---
"RD ASSESSMENT PMHx: hypercholesterolemia; HTN; TIA; GERD; chronic constipation/diarrhea PT INTERACTION: Pt was awake and pleasant during consult for MST score. Note pt has AMS and is a poor historian, per chart review. Pt states current appetite is poor and has been for a long time. Note PO intake of 100% x1meal, per chart review. Pt states following a regular diet at home and has no issues with chewing/swallowing food. Pt states no recent issues with n/v at this time. Pt states having chronic issues with constipation. Note last BM was 05/04 and pt currently on bowel regimen of senna BID; colace BID; and miralax BID, per chart review. Pt states unsure of any recent wt changes. Note unable to determine recent wt hx, per chart review. Upon visual exam, pt appears to be adequately nourished with no visible signs of muscle/fat wasting and a BMI of 24.6. Given visual exam and PO intake, pt does not meet criteria for malnutrition per ASPEN guidelines. ABNORMAL NUTRITION-RELATED LAB VALUES LOW: Pro 6.1 HIGH: BUN 30; Ca 10.2; AST 35 Est. kcal needs: 7381-2001 kcal | 25-30 kcal/kg Est. Pro needs: 55-66 g Pro | 1.0-1.2 g Pro/kg PES STATEMENT: Inadequate oral intake (NI-2.1) related to loss of appetite | constipation as evidenced by pt interview | PO intake 100% x1meal INTERVENTION: Continue with current diet order of DYS1 Pureed diet. Pt may benefit from nutrition supplementation if PO intake declines. Will continue to follow and reassess as pt needs, intake, and status change. MONITOR/EVALUATE: PO Intake; Plan of Care; Hydration Status; Weight Status; Lab Values Josh Cowart, MS, RD, LD"
[2019-05-05] MEDS: SENNA W/DOCUSATE (SENOKOT S) TABLET PO SCH ×2 (10:43→19:37)
[2019-05-05] MEDS: polyethylene glycoL POWDER 17 GM (MIRALAX) PACK PO SCH ×2 (10:43→19:37)
[2019-05-05] MEDS: DOCUSATE SODIUM 100 MG (COLACE) CAP PO SCH ×2 (10:43→19:37)
--- NOTE | 2019-05-05 10:48 | Consultation ---
History of Present Illness History of Present Illness Patient Consulted On(waqas/time) 05/05/19 10:48 Date Seen by Provider: May 05, 2019 Time Seen by Provider: 10:40 Reason for Visit: falling episodes and weakness History of Present Illness PT IS A 78 Y/O FEMALE WHO IS KNOWN TO ME FROM PREVIOUS HOSPITALIZATIONS AND CLINIC PATIENT. SHE PRESENTED TO THE INPATIENT REHAB UNIT AFTER ACUTE CONFUSIONAL EPISODE WITH FALLING AT HOME. INITIALLY THEY SUSPECTED A STROKE AT [facility], BUT THEY THEN DETERMINED THAT SHE HAD ACUTE HYPOXIA WITH ENCEPHALOPATHY. SHE WAS THEN ADMITTED TO THE INPATIENT REHAB UNIT FOR STRENGTHENING. Allergies and Home Medications Allergies Coded Allergies: tetracycline (Verified Allergy, Mild, 05/04/19) rash Home Medications Acetaminophen 650 Mg Tablet.er, 650 MG PO BID, (Reported) Alprazolam 0.25 Mg Tablet, 0.25 MG PO HS, (Reported) Alprazolam 0.25 Mg Tablet, 0.25 MG PO DAILY PRN for ANXIETY, (Reported) Amlodipine Besylate 5 Mg Tablet, 5 MG PO DAILY, (Reported) Duloxetine HCl 30 Mg Capsule.dr, 30 MG PO HS, (Reported) Ferrous Sulfate 325 Mg Tablet, 325 MG PO DAILY, (Reported) Gabapentin 100 Mg Capsule, 200 MG PO DAILY@1600, (Reported) TAKES 2 100 MG CAPS L.acidoph & Paracasei,B.lactis 1 Each Capsule, 1 EACH PO DAILY, (Reported) Losartan Potassium 100 Mg Tablet, 100 MG PO DAILY, (Reported) Magnesium Oxide 400 Mg Tablet, 400 MG PO BID, (Reported) Metoprolol Tartrate 25 Mg Tablet, 12.5 MG PO BID, (Reported) TAKE 1/2 OF 25 MG TAB Montelukast Sodium 10 Mg Tablet, 10 MG PO HS, (Reported) Multivit with Calcium,Iron,Min 1 Each Tablet, 1 EACH PO DAILY, (Reported) Naproxen Sodium 220 Mg Tablet, 220 MG PO DAILY@1200 PRN for PAIN-MILD (1-4), (Reported) Nystatin 60 Gm Powder, 0 TP DAILY PRN for IRRITATION, (Reported) APPLY SPARINGLY TO AFFECT AREA(S) Pantoprazole Sodium 40 Mg Tablet.dr, 40 MG PO DAILY, (Reported) Potassium Chloride 10 Meq Tab.er.prt, 10 MEQ PO DAILY, (Reported) Sucralfate 1 Gm Tablet, 1 GM PO AC, (Reported) Patient Home Medication List Home Medication List Reviewed: Yes Past Sbhsfyo-Omeykg-Mhqufj Hx Past Med/Social Hx: Reviewed Nursing Past Med/Soc Hx, Reviewed and Corrections made Patient Social History Alcohol Use: Denies Use Recreational Drug Use: No Smoking Status: Never a Smoker 2nd Hand Smoke Exposure: No Recent Foreign Travel: No Contact w/Someone Who Travel: No Recent Infectious Disease Expo: No Recent Hopitalizations: No Physical Abuse: No Sexual Abuse: No Mistreated: No Fear: No Immunizations Up To Date Tetanus Booster (TDap): Unknown Date of Pneumonia Vaccine: Nov 08, 2014 Date of Influenza Vaccine: Dec 13, 2018 Seasonal Allergies Seasonal Allergies: No Past Medical History Surgeries: Yes Bowel Surgery, Hysterectomy, Orthopedic Pneumonia Currently Using CPAP: No Currently Using BIPAP: No High Cholesterol, Hypertension Neuropathy, TIA Reproductive Disorders: Yes (complete hysterectomy in her 20's r/t infection "that didn't clear up") Sexually Transmitted Disease: No HIV/AIDS: No Bladder Infection Gastroesophageal Reflux, Chronic Constipation, Chronic Diarrhea Osteoporosis, Arthritis, Chronic Back Pain, Fractures Cataract, Macular Degeneration Loss of Vision: Bilateral Hearing Impairment: Hard of Hearing Sleep Difficulties, Anxiety, Depression Family Medical History Reviewed Nursing Family Hx Cardiovascular disease 19 FATHER Heart Disease, Hypertension Review of Systems Review of Systems General: No Chills; Fatigue HEENT: No Head Aches Pulmonary: No Dyspnea, No Cough Cardiovascular: No: Chest Pain, Palpitations Gastrointestinal: No: Nausea, Abdominal Pain Musculoskeletal: neck pain, shoulder pain, back pain, leg pain Neurological: Weakness, Confusion (intermittent) All Other Systems Reviewed All Other Systems Reviewed: Yes Physical Exam Vital Signs Vital Signs - First Documented 05/04/19 05/04/19 15:10 15:43 Temp 37.2 Pulse 95 Resp 20 B/P (MAP) 172/78 Pulse Ox 95 O2 Delivery Room Air Capillary Refill : Less Than 3 Seconds Height, Weight, BMI Height: 4'10.00" Weight: 120lbs. 4.0oz. 54.731594sr; 24.56 BMI Method:Stated General Appearance: No Apparent Distress, WD/WN Eyes: Bilateral Eye Normal Inspection, Bilateral Eye PERRL, Bilateral Eye EOMI HEENT: PERRL/EOMI, Pharynx Normal Neck: Full Range of Motion, Non Tender, Supple Respiratory: Chest Non Tender, Lungs Clear, Normal Breath Sounds, No Respiratory Distress Cardiovascular: Regular Rate, Rhythm, No Edema, Normal Peripheral Pulses Gastrointestinal: Normal Bowel Sounds, Non Tender, Soft Rectal: Deferred Back: Normal Inspection, No Vertebral Tenderness Extremity: Normal Capillary Refill, Non Tender, No Calf Tenderness, Pedal Edema (TRACE), Other (ECCHYMOSIS ON ARMS) Neurologic/Psychiatric: Alert, Oriented x3, Normal Mood/Affect, intermediate project manager II-XII Norm as Tested Skin: Warm/Dry, Ecchymosis Lymphatic: No Adenopathy Assessment/Plan Assessment/Plan Admission Dx ENCEPHALOPATHY HYPERTENSION DEPRESSION Admission Status: Inpatient Order (span 2 midnights) Problems: (1) Encephalopathy Assessment & Plan: IMPROVED - CONTINUE WITH SUPPORTIVE CARE, ADJUST MEDICATIONS NEEDED. (2) Frailty Assessment & Plan: SHOULD IMPROVE WITH THERAPY (3) Neuropathy Assessment & Plan: CHRONIC - SHE IS ON GABAPENTIN - WILL DECREASE DOSE FROM 200MG TO 100MG, MONITOR RESPONSE (4) Polypharmacy Assessment & Plan: APPROPRIATE POLYPHARMACY DUE TO SEVERE HYPERTENSION WITH DIFFICULT TO CONTROL BLOOD PRESSURE REQUIRING MULTIPLE AGENTS FOR LOWERING OF BLOOD PRESSURE. (5) Falls Qualifiers: Qualified Codes: W19.XXXD - Unspecified fall, subsequent encounter (6) Cerebrovascular disease Assessment & Plan: SUPPORTIVE CARE, BLOOD PRESSURE CONTROL (7) Hypertension Qualifiers: Qualified Codes: I10 - Essential (primary) hypertension Clinical Quality Measures DVT/VTE Risk/Contraindication: Risk Factor Score Per Nursin RFS Level Per Nursing on Admit: 4+=Very High SANJEEV UNDERWOOD MD May 05, 2019 10:48
--- NOTE | 2019-05-05 11:00 | Physical Therapy Daily Note ---
PT Daily Note-Current Subjective Pt. agrees to Rx. States she has help at home and has 2 steps Pain Location: No Pain Reported Mental Status Patient Orientation: Person, Place, Time, Situation Transfers SCALE: Activities may be completed with or without assistive devices. 1-Cbrfuwdvcy-pwuwskv completes the activity by him/herself with no assistance from a helper. 5-Set-up or Clean-up Assistance-helper sets up or cleans up; patient completes activity. [place] assists only prior to or following the activity. 4-Supervision or Touching Assistance-helper provides verbal cues and/or touching/steadying and/or contact guard assistance as patient completes activity. Assistance may be provided throughout the activity or intermittently. 3-Partial/Moderate Assistance-helper does LESS THAN HALF the effort. [place] lifts, holds or supports trunk or limbs, but provides less than half the effort. 2-Substantial/Maximal Assistance-helper does MORE THAN HALF the effort. [place] lifts or holds trunk or limbs and provides more than half the effort. 7-Rkiwfyuws-zkyfdh does ALL the effort. Patient does none of the effort to co mplete the activity. Or, the assistance of 2 or more helpers is required for the patient to complete the activity. If activity was not attempted, code reason: 7-Patient Refused. 9-Not Applicable-not attempted and the patient did not perform the activity before the current illness, exacerbation or injury. 10-Not Attempted due to Environmental Limitations-(lack of equipment, weather restraints, etc.). 88-Not Attempted due to Medical Conditions or Safety Concerns. Roll Left & Right (QC): 5 Sit to Lying (QC): 5 Lying to Sitting/Side of Bed(Q: 5 Sit to Stand (QC): 5 Chair/Wci-td-Tfjte Xfer(QC): 5 Toilet Transfer (QC): 5 needs instruction for sup to side to sit, uses rail Gait Training Does the Patient Walk?: Yes Walk 10 feet (QC): 5 Walk 50 ft with 2 Turns(QC): 5 Walk 150 ft (QC): 5 Gait Persons Needed: 1 Gait Assistive Device: FWW Exercises Supine Ex: Bridging, Ankle pumps, Quad Set, Rolling, Glut sets, Heel Slides, Short Arc Quads, Scooting, Straight leg raise (x5), Hip abd/add Supine Reps: 15 Seated Therapy Exercises: Ankle pumps, Sit to stand, Long arc quads, Hip flexion, Hip abd/add Seated Reps: 15 NuStep Minutes: 10 NuStep Workload: 2 Treatments toileted SBA and instruction at sink for hand washing Assessment Current Status: Good Progress slow, frail PT Jail Goals Jail Goals PT Booky Goals Time Frame: Jun 03, 2019 Roll Left & Right (QC): 6 Sit to Lying (QC): 6 Lying-Sitting on Side/Bed(QC): 6 Sit to Stand (QC): 5 Chair/Koo-we-Kuqtz Xfer(QC): 5 Toilet Transfer (QC): 5 Car Transfer (QC): 5 Does the Patient Walk: Yes Walk 10 feet (QC): 5 Walk 50ft with 2 Turns (QC): 5 Walk 150 ft (QC): 5 Walking 10ft on Uneven Surface: 5 1 Step (curb) (QC): 5 4 Steps (QC): 9 12 Steps (QC): 9 Picking up an Object (QC): 5 PT Plan Treatment/Plan Treatment Plan: Continue Plan of Care Treatment Plan: Bed Mobility, Concurrent Therapy, Education, Functional Activity Oliverio, Functional Strength, Group Therapy, Gait, Safety, Therapeutic Exercise, Transfers Treatment Duration: Jun 03, 2019 Frequency: At least 5 of 7 days/Wk (IRF) Estimated Hrs Per Day: 1.5 hours per day Patient and/or Family Agrees t: Yes Safety Risks/Education Patient Education: Gait Training, Transfer Techniques, Correct Positioning, Disease Process, Safety Issues Teaching Recipient: Patient Teaching Methods: Demonstration, Discussion Response to Teaching: Verbalize Understanding, Return Demonstration, Reinforcement Needed Time/GCodes Time In: 1000 Time Out: 1100 Total Billed Treatment Time: 60 Total Billed Treatment 1,EX25m,FA15m,GT20m DENG FOLEY PLATE CORRECTOR May 05, 2019 11:00
[2019-05-05] MEDS ORDERED: L.AC1CAP6 PO (12:31)
[2019-05-05] MEDS ORDERED: POTA10TA36 PO (12:31)
[2019-05-05] MEDS ORDERED: NAPR220T66 PO (12:31)
[2019-05-05] MEDS ORDERED: FERR-84 PO (12:31)
[2019-05-05] MEDS ORDERED: ALPR0.254 PO (12:31)
[2019-05-05] MEDS ORDERED: GABA-486 PO (12:31)
[2019-05-05] MEDS ORDERED: LOSA100T57 PO (12:31)
[2019-05-05] MEDS ORDERED: MONT10TA26 PO (12:31)
[2019-05-05] MEDS ORDERED: METO-333 PO (12:31)
[2019-05-05] MEDS ORDERED: MAGN400T29 PO (12:31)
[2019-05-05] MEDS ORDERED: MULT-141 PO (12:31)
[2019-05-05] MEDS ORDERED: NYST60PO TP (12:31)
--- NOTE | 2019-05-05 12:34 | NUR ---
UPDATED PATIENT'S HOME MEDS USING EXTERNAL MED HISTORY AND TALKING TO PATIENT'S DAUGHTER NIRAJ HOME MEDS:MEDS AT [facility]: APAP 650 MG BIDAPAP 650 MG Q4H PRN ALPRAZOLAM 0.25 MG HS & 1 DAILY PRNASA EC 81 MG DAILY AMLODIPINE 5 MG DAILYAMLODIPINE 5 MG DAILY DULOXETINE 30 MG HSDULOXETINE 20 MG HS FERROUS SULFATE 325 MG DAILYDOCUSATE SOD 100 MG BID GABAPENTIN 200 MG (2X100 MG) HSHEPARIN 5,000 UNITS Q8H PROBIOTIC 1 CAP DAILYHYDRALAZINE 10 MG IV PRN LOSARTAN 100 MG DAILYMETOPROLOL TART 12.5 MG BID MAG OX 400 MG BIDMORPHINE 4 MG IV Q4H PRN (NOT USING) METOPROLOL TART 12.5 MG (1/2 25 MG) BIDPANTOPRAZOLE 40 MG DAILY MONTELUKAST 10 MG HSKCL 10 MEQ DAILY WOMEN'S VITAMIN 1 DAILYSENNOSIDES 17.2 MG HS ALEVE 220 MG IN AFTERNOON PRN NYSTATIN POWDER DAILY PRN PANTOPRAZOLE 40 MG DAILY POTASSIUM CHLORIDE 10 MEQ DAILY SUCRALFATE 1 GM SLURRY BEFORE MEALS
--- NOTE | 2019-05-05 12:41 | NUR ---
CM/SS ADMISSION Patient was admitted to ARU 05/04/19 from [facility] for Acute Metabolic Encephalopathy post fall at home with multiple contusions. Additional comorbidities include, in part, frailty, neuropathy, polypharmacy, cerebrovascular disease, HTN. Prior to hospitalization, patient resided home alone with multi-faceted monitor, caregiving, and support; patient plans to return home as before with resume of all her supplemental care and resources. Family members are reportedly very involved to assist patient and contact daily to check on her well-being. Indications are patient was safe at home alone with the daily contacts/monitor/scheduled caregivers. She also has a employment director 1 x month. DME: Has FWW, bath and stool grab bars, bath chair. HHC: Patient stated she was receiving a monthly visit from RN for an injection and that she thought the agency was from [place], will explore. PERSONAL CARE: Patient has personal care assistants for routine shower schedule, hair washing, nail care. MEALS: Home delivered, unsure of source, will explore. PCP: Dr. Aan Tinsley MD, [place]. INSURED: Medicare, [facility]ACY: [facility]. CONTACTS: Patient has 3 children: Britni Osullivan ( Jania Osullivan, ) [place], [place] [phone] Hernesto Eduardo, Son [phone] Fabby Gallo (Dr. Gallo's mother) Jacquelyn Patient understands the process and purpose of the weekly team conference relative to her progress toward discharge planning.
--- NOTE | 2019-05-05 13:31 | Physical Therapy Daily Note ---
PT Daily Note-Current Subjective Pt. agrees toRx.. Needs to toilet. c/o she is cold and tired this afternoon Pain Location: No Pain Reported Mental Status Patient Orientation: Normal For Age Transfers SCALE: Activities may be completed with or without assistive devices. 4-Vzkxcdhfax-cdklbuz completes the activity by him/herself with no assistance from a helper. 5-Set-up or Clean-up Assistance-helper sets up or cleans up; patient completes activity. [place] assists only prior to or following the activity. 4-Supervision or Touching Assistance-helper provides verbal cues and/or touching/steadying and/or contact guard assistance as patient completes activity. Assistance may be provided throughout the activity or intermittently. 3-Partial/Moderate Assistance-helper does LESS THAN HALF the effort. [place] lifts, holds or supports trunk or limbs, but provides less than half the effort. 2-Substantial/Maximal Assistance-helper does MORE THAN HALF the effort. [place] lifts or holds trunk or limbs and provides more than half the effort. 9-Nlfqhxpps-xvwiou does ALL the effort. Patient does none of the effort to comp lete the activity. Or, the assistance of 2 or more helpers is required for the patient to complete the activity. If activity was not attempted, code reason: 7-Patient Refused. 9-Not Applicable-not attempted and the patient did not perform the activity before the current illness, exacerbation or injury. 10-Not Attempted due to Environmental Limitations-(lack of equipment, weather restraints, etc.). 88-Not Attempted due to Medical Conditions or Safety Concerns. chair and toilet CGA Gait Training Does the Patient Walk?: Yes Gait Assistive Device: FWW 50ft x 2 100ft, 75ft SBA to CGA very kyphotic, no LOB, needs directed /guided as to where to go. needs instruction and reminders about safe use of hands and safe chair approach Exercises Seated Therapy Exercises: Ankle pumps, Sit to stand, Long arc quads, Hip flexion Seated Reps: 12 Treatments needed assist for clothing up after toileting Assessment Current Status: Good Progress PT Police Officer Crime Prevention Goals Police Officer Crime Prevention Goals PT Police Officer Crime Prevention Goals Time Frame: Jun 03, 2019 Roll Left & Right (QC): 6 Sit to Lying (QC): 6 Lying-Sitting on Side/Bed(QC): 6 Sit to Stand (QC): 5 Chair/Kbz-vz-Jremt Xfer(QC): 5 Toilet Transfer (QC): 5 Car Transfer (QC): 5 Does the Patient Walk: Yes Walk 10 feet (QC): 5 Walk 50ft with 2 Turns (QC): 5 Walk 150 ft (QC): 5 Walking 10ft on Uneven Surface: 5 1 Step (curb) (QC): 5 4 Steps (QC): 9 12 Steps (QC): 9 Picking up an Object (QC): 5 PT Plan Treatment/Plan Treatment Plan: Continue Plan of Care Treatment Plan: Bed Mobility, Concurrent Therapy, Education, Functional Activity Oliverio, Functional Strength, Group Therapy, Gait, Safety, Therapeutic Exercise, Transfers Treatment Duration: Jun 03, 2019 Frequency: At least 5 of 7 days/Wk (IRF) Estimated Hrs Per Day: 1.5 hours per day Patient and/or Family Agrees t: Yes Safety Risks/Education Patient Education: Gait Training, Transfer Techniques, Correct Positioning, Disease Process, Safety Issues Teaching Recipient: Patient Teaching Methods: Demonstration, Discussion Response to Teaching: Verbalize Understanding, Return Demonstration, Reinforcement Needed Time/GCodes Time In: 1315 Time Out: 1330 Total Billed Treatment Time: 15 Total Billed Treatment 1,gt15 DENG FOLEY WASTE TRANSPORTATION TECHNICIAN May 05, 2019 13:31
--- NOTE | 2019-05-05 13:34 | ST Cognitive Linguistic Eval ---
Speech Evaluation-General Medical Diagnosis acute metabolic encephalopathy Onset Date: May 01, 2019 Therapy Diagnosis Therapy Diagnosis: Cognitive-communication Referral Referring Physician: Dr. Ledezma Reason for Referral: Evaluation/Treatment Medical History Pertinent Medical History: Arthritis, CVA, HTN Reviewed History: Yes Social History Current Living Status: Alone Speech PLF-Current Status Prior Level of Function Patient reported that she lived at home alone with some assistance prior to hospital admission. Subjective Patient was alert, cooperative, and pleasant for all evaluation tasks. Patient reported that she is feeling a little confused today. Patient sat upright in her chair for the duration of the evaluation. Language Eval: Auditory Comprehends Simple Yes/No Ques: Functional Indent/Objects Multiple Bryson: Functional Ident/Pics in Multiple Bryson: Functional Follows 1-Step Commands: Functional Follows Complex Directions: Moderate Follows General Conversations: Functional Language Eval: Verbal Language Completes Spontaneous Greeting: Functional Produces Auto, Serial Info: Mild Imitates Simple Words/Phrases: Functional Word Finding: Mild Requests Basic Needs: Functional States Basic Personal Info: Functional Expresses Complex Ideas: Mild Objective Cognitive Domain Attention: Mild Memory: Mild Problem Solving: Mild Executive Functions: Mild Visuospatial Skills: WNL Composite Severity Rating: Mild Clock Drawing Severity Rating: WNL Objective Formal/Standardized Tests [facility] Mental Status (UMS) Examination was administered. Results Patient was administered the SLUMS and scored 14/30 which falls within the moderate dementia range of cognitive functions. Oral Motor/Speech Production Within functional limits. Impression Patient was admitted to the ARU s/p acute metabolic encephalopathy. Patient was administered the SLUMS and scored 14/30 which falls within the moderate dementia range of cognitive function. Patient will receive skilled ST therapy to address deficits in the areas of memory, safety awareness, and problem solving. Treatment will focus on improvement of cognitive skills to effectively communicate wants/needs. Speech Patient Assess Expression of Ideas/Wants: Expression (4) Understanding Verbal Content: Usually Understands (3) Brief Interview-Mental Status: Yes Repetition of Three Words: Three (3) Temporal Orientation: Year: Missed by 2-5 years (1) Temporal Orientation: Month: Accurate within 5 days(2) Temporal Orientation: Day: Correct (1) Recall : Wear to say "Sock": Yes, no cue required (2) Recall : Color: No, could not recall (0) Recall : Bed: No, could not recall (0) Memory/Recall Ability: Current season, That he or she is in a hsp/hsp unit Speech Short Term Goals Short Term Goals Short Term Goals 1. Patient will complete memory tasks at 80% accuracy with minimal cues. 2. Patient will complete problem-solving tasks at 80% accuracy with minimal cues. 3. Patient will complete safety awareness tasks at 80% accuracy with minimal cues. 4. Patient will complete speech production tasks at 80% accuracy with minimal cues. Speech Jail Goals Jail Goals Patient will improve cognitive-communication necessary for safety and daily living tasks with minimal assist. Speech-Plan Patient/Family Goals Patient/Family Goals: Patient reported that she wishes to return home to previous level of mobility and independence. Treatment Plan Speech Therapy Treatment Plan: Continue Plan of Care Treatment Duration: May 12, 2019 Frequency: 4 times per week (4 to 5 times) Estimated Hrs Per Day: .5 hour per day Rehab Potential: Fair Barriers to Learning: Moderate cognitive deficits Pt/Family Agrees to Plan: Yes Safety Risks/Education Teaching Recipient: Patient Teaching Methods: Demonstration, Discussion Response to Teaching: Verbalize Understanding Education Topics Provided: Utilization of memory strategies to recall important information. Time Speech Therapy Time In: 11:00 Speech Therapy Time Out: 11:15 Total Billed Time: 15 Billed Treatment Time 1, SPSNDCOMP WILFREDO Hernandez May 05, 2019 13:34
[2019-05-05] MEDS ORDERED: ACETAMINOPHEN 500 MG TAB (TYLENOL) PO NR (16:00)
[2019-05-05] MEDS: ENOXAPARIN 40 MG/0.4 ML (LOVENOX) SYR SC SCH (16:31)
[2019-05-05] MEDS: GABAPENTIN 100 MG (NEURONTIN) CAP PO SCH (17:16)
[2019-05-05 18:21] VITALS: BP 138/75
[2019-05-05] MEDS: amLODIPine 5 MG (NORVASC) TAB PO SCH (19:51)
--- NOTE | 2019-05-05 19:54 | NUR ---
Checked w Dr. Tinsley regarding 1600 dose of Norvasc 5 mg ordered. Had been unable to check w her earlier d/t we had a pt go AMA, & the time required to deal w that pt. Received order to D/C the 1600 ordered Norvasc 5 mg.
[2019-05-05] MEDS: MONTELUKAST 10 MG (SINGULAIR) TAB PO SCH (20:45)
[2019-05-05] MEDS: DULoxetine 30 MG (CYMBALTA) CAP PO SCH (20:45)
[2019-05-05] MEDS: ALPRAZolam 0.25 MG (XANAX) TAB PO SCH (20:45)
[2019-05-05] MEDS: MAGNESIUM OXIDE (MAG-OX)400 MG TAB PO SCH (20:45)
[2019-05-05] MEDS: meTOprolol TARTRATE 25 MG (LOPRESSOR) TABLET PO SCH (20:45)
[2019-05-05] MEDS: ACETAMINOPHEN 325 MG TABLET PO SCH (20:46)
[2019-05-06] MEDS: ACETAMINOPHEN 325 MG TABLET PO PRN (02:44)
[2019-05-06 05:38] VITALS: BP 158/72
[2019-05-06 06:04] LABS: MEAN PLATELET VOLUME 9.9 FL (7.4-10.4); RED CELL DISTRIBUTION WIDTH 13.1 % (10.0-14.5); WHITE BLOOD COUNT 10.4 10^3/uL (4.3-11.0)
[2019-05-06 06:25] LABS: ALANINE AMINOTRANSFERASE 26 U/L (0-55); ALBUMIN 3.6 GM/DL (3.2-4.5); ALKALINE PHOSPHATASE 45 U/L (40-136); BILIRUBIN,TOTAL 0.5 MG/DL (0.1-1.0); BUN/CREATININE RATIO 32; CALCIUM 9.5 MG/DL (8.5-10.1); CARBON DIOXIDE 24 MMOL/L (21-32); CHLORIDE 101 MMOL/L (98-107); CREATININE SERUM 0.84 MG/DL (0.60-1.30); GFR ESTIMATED > 60; GLUCOSE 95 MG/DL (70-105); POTASSIUM 4.2 MMOL/L (3.6-5.0); SODIUM 139 MMOL/L (135-145); TOTAL PROTEIN 6.3 GM/DL (6.4-8.2)
[2019-05-06] MEDS: KCL 10 MEQ TAB (MICRO K) PO SCH (06:55)
[2019-05-06] MEDS: meTOprolol TARTRATE 25 MG (LOPRESSOR) TABLET PO SCH ×2 (09:17→20:11)
[2019-05-06] MEDS: LOSARTAN 100 MG (COZAAR) TABLET PO SCH (09:17)
[2019-05-06] MEDS: FERROUS SULF 325 MG (IRON) TAB PO SCH (09:17)
[2019-05-06] MEDS: PANTOPRAZOLE 40 MG (PROTONIX) TAB PO SCH (09:17)
[2019-05-06] MEDS: MAGNESIUM OXIDE (MAG-OX)400 MG TAB PO SCH ×2 (09:17→20:11)
[2019-05-06] MEDS: amLODIPine 5 MG (NORVASC) TAB PO SCH (09:17)
[2019-05-06] MEDS: ACETAMINOPHEN 325 MG TABLET PO SCH ×2 (09:18→20:11)
--- NOTE | 2019-05-06 09:20 | Occupational Ther Daily Note ---
OT Current Status-Daily Note Subjective Pt alert and in restroom with nursing staff upon therapy arrival. Pt willing to participate with OT services this date. Pt complaining of fatigue, and no complaints of mild pain throughout her entire body this date. ADL-Treatment Therapy Code Descriptions/Definitions Functional [place] Measure: 0=Not Assessed/NA 4=Minimal Assistance 1=Total Assistance 5=Supervision or Setup 2=Maximal Assistance 6=Modified [place] 3=Moderate Assistance 7=Complete IndependenceSCALE: Activities may be completed with or without assistive devices. 5-Gcdapckttp-bwngjjs completes the activity by him/herself with no assistance from a helper. 5-Set-up or Clean-up Assistance-helper sets up or cleans up; patient completes activity. [place] assists only prior to or following the activity. 4-Supervision or Touching Assistance-helper provides verbal cues and/or touching/steadying and/or contact guard assistance as patient completes activity. Assistance may be provided throughout the activity or intermittently. 3-Partial/Moderate Assistance-helper does LESS THAN HALF the effort. [place] lifts, holds or supports trunk or limbs, but provides less than half the effort. 2-Substantial/Maximal Assistance-helper does MORE THAN HALF the effort. [place] lifts or holds trunk or limbs and provides more than half the effort. 6-Blcwnutdg-qofkur does ALL the effort. Patient does none of the effort to complete the activity. Or, the assistance of 2 or more helpers is required for the patient to complete the activity. If activity was not attempted, code reason: 7-Patient Refused. 9-Not Applicable-not attempted and the patient did not perform the activity before the current illness, exacerbation or injury. 10-Not Attempted due to Environmental Limitations-(lack of equipment, weather restraints, etc.). 88-Not Attempted due to Medical Conditions or Safety Concerns. Oral Hygiene (QC): 4 (CGA for oral hygiene while standing at sink with FWW. ) Upper Body Dressing (QC): 4 (SPV for UBD) Lower Body Dressing (QC): 4 (CGA while standing to manage pants over hips) Toileting Hygiene (QC): 3 (Kannan for hygiene following BM. CGA with verbal cues for clothing management. ) Toilet Transfer (QC): 4 (CGA) Other Treatment Pt participated in gentle BUE ther ex with use of red theraband, through gross UE planes of motion with focus on improving major muscle groups required for ADLs and IADLs. Pt fatigued quickly and required frequent rest breaks. 1x20 reps completed through gross UE planes of motion. Pt educated on proper movement patterns to avoid risk for injury. Pt participated in therapeutic activities to address her dynamic standing balance and functional activity tolerance while navigating throughout her environment to address safety and independence with functional mobility tasks. Pt required CGA throughout duration of dynamic standing balance, and able to maintain stands for increments of 3-4 min prior to seated rest break. Education OT Patient Education: Correct positioning, Energy conservation, Exercise program, Modified ADL techniques, Purpose of tx/functional activities, Safety issues, Transfer techniques Teaching Recipient: Patient Teaching Methods: Discussion Response to Teaching: Verbalize Understanding, Return Demonstration OT Short Term Goals Short Term Goals Upper body dressin Lower body dressin OT Assisted Goals Loom Mechanic Goals Time Frame: May 19, 2019 Eating (QC): 6 Oral Hygiene (QC): 6 Toileting Hygiene (QC): 6 Shower/Bathe Self (QC): 6 Upper Body Dressing (QC): 6 Lower Body Dressing (QC): 6 On/Off Footwear (QC): 6 Additional Goals: 1-Demonstrate ADL Tasks, 2-Verbalize Understanding, 3- ImproveStrength/Oliverio 1=Demonstrate adherence to instructed precautions during ADL tasks. 2=Patient will verbalize/demonstrate understanding of assistive devices/modifications for ADL. 3=Patient will improve strength/tolerance for activity to enable patient to perform ADL's. OT Education/Plan Discharge Recommendations Plan/Recommendations: Continue POC Treatment Plan/Plan of Care Patient would benefit from OT for education, treatment and training to promote independence in ADL's, mobility, safety and/or upper extremity function for ADL's. Plan of Care: ADL Retraining, Caregiver Training, Functional Mobility, Group Exercise/Act as Ind, UE Funct Exercise/Act Treatment Duration: May 19, 2019 Frequency: At least 5 of 7 days/Wk (IRF) Estimated Hrs Per Day: 1.5 hours per day Agreement: Yes Rehab Potential: Fair Time/GCodes Start Time: 08:00 Stop Time: 09:15 Total Time Billed (hr/min): 75 Billed Treatment Time 1, ADL3, EX1, FA1 ARA [place] OT May 06, 2019 09:20
[2019-05-06] MEDS: SENNA W/DOCUSATE (SENOKOT S) TABLET PO SCH ×2 (09:35→20:48)
[2019-05-06] MEDS: polyethylene glycoL POWDER 17 GM (MIRALAX) PACK PO SCH ×2 (09:35→20:47)
[2019-05-06] MEDS: DOCUSATE SODIUM 100 MG (COLACE) CAP PO SCH ×2 (09:35→20:47)
--- NOTE | 2019-05-06 11:23 | PM&R Progress Note ---
Subjective HPI/CC On Admission Date Seen by Provider: May 06, 2019 Time Seen by Provider: 11:45 Subjective/Events-last exam Patient doing better Less confusion Frail status remains No pain is reported Minimization of meds has helped and PCP performed that management No dyspnea No falls but increased risk Checked meds and labs Reviewed therapy notes Conferred with senior buyer planner of Systems General: Fatigue Pulmonary: Dyspnea Objective Exam Vital Signs Vital Signs Date Time Temp Pulse Resp B/P (MAP) Pulse Ox O2 Delivery O2 Flow Rate FiO2 05/06/19 09:00 Room Air 05/06/19 05:38 37.2 82 18 158/72 (100) 94 Capillary Refill : Less Than 3 Seconds General Appearance: No Apparent Distress, WD/WN, Chronically ill, Thin HEENT: PERRL/EOMI, Pharynx Normal Neck: Full Range of Motion, Non Tender, Supple Respiratory: Chest Non Tender, Lungs Clear, Normal Breath Sounds, No Respiratory Distress Cardiovascular: Regular Rate, Rhythm, No Edema, Normal Peripheral Pulses Gastrointestinal: Normal Bowel Sounds, Non Tender, Soft Rectal: Deferred Back: Normal Inspection, No Vertebral Tenderness Extremity: Normal Capillary Refill, Non Tender, No Calf Tenderness, Pedal Edema (TRACE), Other (ECCHYMOSIS ON ARMS) Neurologic/Psychiatric: Alert, Oriented x3, Normal Mood/Affect, insole stiffener II-XII Norm as Tested Skin: Warm/Dry, Ecchymosis Lymphatic: No Adenopathy Results/Procedures Lab Laboratory Tests 05/06/19 05:31 Patient resulted labs reviewed. FIM Transfers Therapy Code Descriptions/Definitions Functional [place] Measure: 0=Not Assessed/NA 4=Minimal Assistance 1=Total Assistance 5=Supervision or Setup 2=Maximal Assistance 6=Modified [place] 3=Moderate Assistance 7=Complete IndependenceSCALE: Activities may be completed with or without assistive devices. 4-Xminrnchot-kljbtxw completes the activity by him/herself with no assistance from a helper. 5-Set-up or Clean-up Assistance-helper sets up or cleans up; patient completes activity. [place] assists only prior to or following the activity. 4-Supervision or Touching Assistance-helper provides verbal cues and/or touching/steadying and/or contact guard assistance as patient completes activity. Assistance may be provided throughout the activity or intermittently. 3-Partial/Moderate Assistance-helper does LESS THAN HALF the effort. [place] lifts, holds or supports trunk or limbs, but provides less than half the effort. 2-Substantial/Maximal Assistance-helper does MORE THAN HALF the effort. [place] lifts or holds trunk or limbs and provides more than half the effort. 8-Pylhzsbcg-rsptel does ALL the effort. Patient does none of the effort to complete the activity. Or, the assistance of 2 or more helpers is required for the patient to complete the activity. If activity was not attempted, code reason: 7-Patient Refused. 9-Not Applicable-not attempted and the patient did not perform the activity before the current illness, exacerbation or injury. 10-Not Attempted due to Environmental Limitations-(lack of equipment, weather restraints, etc.). 88-Not Attempted due to Medical Conditions or Safety Concerns. Roll Left to Right (QC): 5 Sit to Lying (QC): 5 Sit to Stand (QC): 5 Chair/Yre-fh-Mievr Xfer(QC): 5 Car Transfer (QC): 2 Gait Training Does the Patient Walk?: Yes Walk 10 feet (QC): 5 Walk 50 ft with 2 Turns(QC): 5 Walk 150 ft (QC): 5 Walking 10ft/uneven surface-QC: 3 Gait Persons Needed: 1 Gait Assistive Device: FWW Wheelchair Training Does the Pt Use a Wheelchair?: No Stair Training #of Steps: 1 1 Step (curb) (QC): 3 4 Steps (QC): 9 12 Steps (QC): 9 Balance Picking up an Object (QC): 88 ADL-Treatment Eating (QC): 4 (Able to complete with handing drink to pt. Pt states she does not have any issues eating at home) Oral Hygiene (QC): 4 (CGA for oral hygiene while standing at sink with FWW. ) Shower/Bathe Self (QC): 2 (Max A for LB/ back/ bottom/ hair- pt requires max A for drying off) Upper Body Dressing (QC): 4 (SPV for UBD) Lower Body Dressing (QC): 4 (CGA while standing to manage pants over hips) On/Off Footwear (QC): 2 (max A ) Toileting Hygiene (QC): 3 (Kannan for hygiene following BM. CGA with verbal cues for clothing management. ) Toilet Transfer (QC): 4 (CGA) Assessment/Plan Assessment and Plan Assess & Plan/Chief Complaint Assessment: Debility Encephalopathy Frail status Anemia chronic Falls Neuropathy Polypharmacy plan: Minimize meds IRF PT OT Bed alarm (1) Encephalopathy Assessment & Plan: IMPROVED - CONTINUE WITH SUPPORTIVE CARE, ADJUST MEDICATIONS NEEDED. (2) Frailty Assessment & Plan: SHOULD IMPROVE WITH THERAPY (3) Neuropathy Assessment & Plan: CHRONIC - SHE IS ON GABAPENTIN - WILL DECREASE DOSE FROM 200MG TO 100MG, MONITOR RESPONSE (4) Polypharmacy Assessment & Plan: APPROPRIATE POLYPHARMACY DUE TO SEVERE HYPERTENSION WITH DIFFICULT TO CONTROL BLOOD PRESSURE REQUIRING MULTIPLE AGENTS FOR LOWERING OF BLOOD PRESSURE. (5) Falls Qualifiers: Encounter type: subsequent encounter Qualified Codes: W19.XXXD - Uns pecified fall, subsequent encounter (6) Cerebrovascular disease Assessment & Plan: SUPPORTIVE CARE, BLOOD PRESSURE CONTROL (7) Hypertension Qualifiers: Hypertension type: essential hypertension Qualified Codes: I10 - Essential (primary) hypertension CAIT RAMIREZ DO May 06, 2019 11:23
--- NOTE | 2019-05-06 11:24 | Individualized Plan of Care ---
Individualized Plan of Care Rehab Nursing IPOC Order Admission Date May 04, 2019 at 15:15 Current Orders Orders Admission Order(Inpt,Obs,Sdc) (05/04/19 13:31) Vital Signs: Per Unit Policy ( 08,16,00 (05/04/19 13:31) Wang Donato (05/04/19 13:31) Sequential Compression Device Q4H (05/04/19 13:31) Conservation Worker-Inpt Rehab Con (05/04/19 13:31) Rehab Nursing Orders-Ipoc (05/04/19 13:31) Physical Therapy Rehab Orders (05/04/19 13:31) Occupational Therapy Rehab Ord (05/04/19 13:31) Speech Therapy Rehab Orders (05/04/19 13:31) Cbc With Automated Diff (05/05/19 06:00) Comprehensive Metabolic Panel (05/05/19 06:00) General/Regular (05/04/19 Dinner) Precautions (Aru) (05/04/19 13:31) Rehab-Intensity Of Therapy (05/04/19 13:31) Initiate Admission Nursing Pro .admission (05/04/19 13:31) Alprazolam Tablet (Xanax Tablet) (05/04/19 13:45) Calcium Carbonate Chew Tablet (Antacid C (05/04/19 13:45) Diphenhydramine Tablet (Benadryl Tablet) (05/04/19 13:45) Docusate Sodium Capsule (Colace Capsule) (05/04/19 21:00) Docusate Sodium Capsule (Colace Capsule) (05/04/19 13:45) Bisacodyl Suppository (Dulcolax Supposit (05/04/19 13:45) Lactulose Oral Solution (Enulose Oral So (05/04/19 13:45) Na Phos/Na Biphos Enema (Fleet Enema Ton (05/04/19 13:45) Guaifenesin/Codeine Syrup (Robitussin Ac (05/04/19 13:45) Loperamide Tablet (Imodium Tablet) (05/04/19 13:45) Enoxaparin Injection (Lovenox Injection) (05/04/19 16:00) Melatonin Tablet (Melatonin Tablet) (05/04/19 13:45) Polyethylene Glycol Powder Pkt (Miralax (05/04/19 21:00) Ondansetron Oral Dissolve Tab (Zofran (05/04/19 13:45) Senna S Tablet (Senokot S Tablet) (05/04/19 21:00) Initiate Admission Nursing Pro .admission (05/04/19 13:31) Admission Arrival Bed Request (05/04/19 15:20) Patient Visit (05/04/19 ) Pt Eval Moderate Complexity (05/04/19 ) Functional Activities, Ea 15 (05/04/19 ) Ensure Enlive (05/04/19 Dinner) Ambulate 08,12,20 (05/04/19 16:42) Sequential Compression Device Q4H (05/04/19 16:42) Dvt/Vte Risk - Notifiy Physici Q4H (05/04/19 16:42) Dys1 Pureed (05/04/19 Dinner) Amlodipine Tablet (Norvasc Tablet) (05/04/19 18:00) Amlodipine Tablet (Norvasc Tablet) (05/05/19 09:00) Acetaminophen Tablet/Caplet (Tylenol T (05/05/19 00:15) Acetaminophen Tablet/Caplet (Tylenol T (05/05/19 00:05) Consult Family Medicine (05/05/19 09:34) Patient Visit (05/05/19 ) Speech Sound Lang Comp (05/05/19 ) Patient Visit (05/05/19 ) Exercise Therap, Ea 15 Min (05/05/19 ) Functional Activities, Ea 15 (05/05/19 ) Gait Training, Ea 15 Min (05/05/19 ) Alprazolam Tablet (Xanax Tablet) (05/05/19 21:00) Amlodipine Tablet (Norvasc Tablet) (05/05/19 16:00) Duloxetine Capsule (Cymbalta Capsule) (05/05/19 21:00) Ferrous Sulfate Tablet (Feosol Tablet) (05/06/19 08:00) Gabapentin Capsule/Tablet (Neurontin Cap (05/05/19 16:00) Losartan Tablet (Cozaar Tablet) (05/06/19 09:00) Magnesium Oxide Tablet (Mag Ox Tablet) (05/05/19 21:00) Metoprolol Tartrate (Ir) Tab (Lopressor (05/05/19 21:00) Montelukast Tablet (Singulair Tablet) (05/05/19 21:00) Pantoprazole Tablet (Protonix Tablet) (05/06/19 09:00) Acetaminophen Tablet/Caplet (Tylenol T (05/05/19 21:00) Acetaminophen Tablet (Tylenol Tablet) (05/05/19 16:00) Naproxen Tablet (Naprosyn Tablet) (05/06/19 12:00) Potassium Chloride (Tablet) (Klor Con Ta (05/06/19 07:00) Cbc No Diff (05/06/19 05:00) Comprehensive Metabolic Panel (05/06/19 05:00) Nursing Communication (Order) (05/05/19 19:53) Patient Visit (05/06/19 ) Gait Training, Ea 15 Min (05/06/19 ) Exercise Therap, Ea 15 Min (05/06/19 ) Functional Activities, Ea 15 (05/06/19 ) Patient Visit (05/06/19 ) Treat. Speech/Lang/Voice (05/06/19 ) Rehab Nursing Orders: Ongoing Assess. of Cognitive Status, Ongoing Assess. of Function Status, Bladder Management, Bladder Scan, Bladder Training, Bowel Management, Identify & Edu Concerns re:Sexualty, Disease Management & Educaiton, DVT Prophylaxis, Fall Prevention, Fluid/Electrolyte/Nutrition Mgmt, Infection Prevention, Medication Management & Education, Management of Risks & Complications, Management of Skin Intergrity, Nutrition Management, Pain Management, Patient/Family Support, Safety Management Intensity of Therapy to be met Patient to be seen: Min.3h per day/5 of 7d PT IPOC Problem List: Activity Tolerance, Functional Strength, Safety, Balance, Gait, Transfer, Bed Mobility Treatment Plan: Continue Plan of Care Bed Mobility, Concurrent Therapy, Education, Functional Activity Oliverio, Functional Strength, Group Therapy, Gait, Safety, Therapeutic Exercise, Transfers Treatment Duration: Jun 03, 2019 Frequency: At least 5 of 7 days/Wk (IRF) Estimated Hrs Per Day: 1.5 hours per day OT IPOC Problems: Decreased Activ Tolerance, Decreased UE Strength, Impaired Funct Balance, Impaired I ADL's, Impaired Self-Care Skills OT Treatment, Training and Edu: Yes Plan of Care: ADL Retraining, Caregiver Training, Functional Mobility, Group Exercise/Act as Ind, UE Funct Exercise/Act Treatment Duration: May 19, 2019 Frequency: At least 5 of 7 days/Wk (IRF) Estimated Hrs Per Day: 1.[address] IPOC Speech Therapy Treatment Plan: Continue Plan of Care Treatment Duration: May 12, 2019 Frequency: 4 times per week (4 to 5 times) Estimated Hrs Per Day: .5 hour per day Conservation Worker/Case Mgmt Conservation Worker/Case Managemen: Discharge Planning Dietitian/Car Wash Supervisor Dietitian/Car Wash Supervisor to monitor nutritional status and make changes and/or recommendations as needed and work with speech pathology on dietary upgrades as the occur. Physician IPOC Medical Issues being managed closely and that require the 24 hour availability of a physician: Recent fall and encephalopathy at high risk for increased complexity while recovering and minimizing meds Medical Issues: Bowel/Bladder Function, DVT Prophylaxis, Falls Precautions, Fluid/Electrolyte/Nutrition Balance, Infection Protection, Pain Management Brief Synthesis of Preadmission Screen, Post-Admission Evaluation, and Therapy Evaluations: PT OT ST will all focus on regaining enough ADL function and fall prevention skills in order to return home safely Medical Prognosis: Good Anticipated Length of Stay: 7 days CAIT RAMIREZ DO May 06, 2019 11:23
--- NOTE | 2019-05-06 12:10 | Speech Therapy Daily Note ---
Speech Daily Progress Note Subjective Date Seen by Provider: May 06, 2019 Time Seen by Provider: 11:30 Patient was alert, pleasant, and cooperative for all therapy tasks. Patient reported that she is feeling better today and slept better last night. Patient sat upright in her chair for the duration of treatment. Objective Patient completed memory tasks pertaining to family history with 80% accuracy with minimal cues. Assessment Assessment Current Status: Good Progress Treatment Plan Continue Plan of Care Speech Short Term Goals Short Term Goals Short Term Goals 1. Patient will complete memory tasks at 80% accuracy with minimal cues. 2. Patient will complete problem-solving tasks at 80% accuracy with minimal cues. 3. Patient will complete safety awareness tasks at 80% accuracy with minimal cues. 4. Patient will complete speech production tasks at 80% accuracy with minimal cues. Speech Continuous Wave Operator Goals Fpc Goals Patient will improve cognitive-communication necessary for safety and daily living tasks with minimal assist. Speech-Plan Patient/Family Goals Patient/Family Goals: Patient reported that she wishes to return home to previous level of mobility and independence. Treatment Plan Speech Therapy Treatment Plan: Continue Plan of Care Treatment Duration: May 12, 2019 Frequency: 4 times per week (4 to 5 times) Estimated Hrs Per Day: .5 hour per day Rehab Potential: Fair Barriers to Learning: Moderate cognitive deficits Pt/Family Agrees to Plan: Yes Safety Risks/Education Teaching Recipient: Patient Teaching Methods: Demonstration, Discussion Response to Teaching: Verbalize Understanding Education Topics Provided: Utilization of memory strategies to recall important information Time Speech Therapy Time In: 11:30 Speech Therapy Time Out: 12:00 Total Billed Time: 30 Billed Treatment Time [address] May 06, 2019 12:10
--- NOTE | 2019-05-06 12:40 | Physical Therapy Daily Note ---
PT Daily Note-Current Subjective Pt agreeable to PT session. States she is tired and sore all over this morning. Pain Numeric Pain Scale: 8 Comment: mostly shoulder L > R and in toes, but reall all over Appearance [id number]: 1st unsuccessful attempt: pt getting up to bathroom with nursing then requesting to eat her breakfast. 2nd attempt successful: Pt sitting up in recliner awake and alert upon arrival. During sesiosn, pt requesting and assisted to restroom for BM, min A with elisa care and pulling up briefs and pants. At end of session, pt sitting up in recliner with LE's elevated and pillow under lower legs for positioning Mental Status Patient Orientation: Person, Place, Time, Eyes Open, Situation Transfers SCALE: Activities may be completed with or without assistive devices. 5-Fnwwtbnrgz-kgspdlt completes the activity by him/herself with no assistance from a helper. 5-Set-up or Clean-up Assistance-helper sets up or cleans up; patient completes activity. [place] assists only prior to or following the activity. 4-Supervision or Touching Assistance-helper provides verbal cues and/or touching/steadying and/or contact guard assistance as patient completes activity. Assistance may be provided throughout the activity or intermittently. 3-Partial/Moderate Assistance-helper does LESS THAN HALF the effort. [place] li fts, holds or supports trunk or limbs, but provides less than half the effort. 2-Substantial/Maximal Assistance-helper does MORE THAN HALF the effort. [place] lifts or holds trunk or limbs and provides more than half the effort. 7-Gnmusvuvz-tsqlak does ALL the effort. Patient does none of the effort to complete the activity. Or, the assistance of 2 or more helpers is required for the patient to complete the activity. If activity was not attempted, code reason: 7-Patient Refused. 9-Not Applicable-not attempted and the patient did not perform the activity before the current illness, exacerbation or injury. 10-Not Attempted due to Environmental Limitations-(lack of equipment, weather restraints, etc.). 88-Not Attempted due to Medical Conditions or Safety Concerns. Sit to Stand (QC): 4 (skilled inst requred for safety and hand placement) Toilet Transfer (QC): 4 (CGA with transfer, min A with dressing) Gait Training Does the Patient Walk?: Yes Distance: 155, 130 Walk 10 feet (QC): 4 Walk 50 ft with 2 Turns(QC): 4 Walk 150 ft (QC): 4 Gait Persons Needed: 1 Gait Assistive Device: FWW slow pace, no LOB, decreased step length and height, some fatigue at end of distances requiring sitting rest breaks Exercises Seated Therapy Exercises: Ankle pumps, Sit to stand, Long arc quads, Hip flexion, Hip abd/add Seated Reps: 20 (with rest breaks and skilled inst for technique and follow thr ough, ) Standing: Heel/toe raises, Mini squats Standing Reps: 10 (slow with inst required, BUE support on // bars, sit rest break after the 2 exercise due to c/o fatigue) NuStep Minutes: 15 NuStep Workload: 3 (seat 5, arms 9, slow pace with minimal movement due to pt c/o BLE pain and fatigue) Treatments safety, education, toileting, dressing, transfers, elisa care, gait, ex, strength, balance, activity tolerance, gait, functional mobility Assessment Current Status: Good Progress continues to fatigue with activities but able to recover with rest breaks provided PT Egg Crater Goals Egg Crater Goals PT Egg Crater Goals Time Frame: Jun 03, 2019 Roll Left & Right (QC): 6 Sit to Lying (QC): 6 Lying-Sitting on Side/Bed(QC): 6 Sit to Stand (QC): 5 Chair/Rjs-sa-Ayrqc Xfer(QC): 5 Toilet Transfer (QC): 5 Car Transfer (QC): 5 Does the Patient Walk: Yes Walk 10 feet (QC): 5 Walk 50ft with 2 Turns (QC): 5 Walk 150 ft (QC): 5 Walking 10ft on Uneven Surface: 5 1 Step (curb) (QC): 5 4 Steps (QC): 9 12 Steps (QC): 9 Picking up an Object (QC): 5 PT Plan Treatment/Plan Treatment Plan: Continue Plan of Care Treatment Plan: Bed Mobility, Concurrent Therapy, Education, Functional Activity Oliverio, Functional Strength, Group Therapy, Gait, Safety, Therapeutic Exercise, Transfers Treatment Duration: Jun 03, 2019 Frequency: At least 5 of 7 days/Wk (IRF) Estimated Hrs Per Day: 1.5 hours per day Patient and/or Family Agrees t: Yes Safety Risks/Education Patient Education: Gait Training, Transfer Techniques, Safety Issues Teaching Recipient: Patient Teaching Methods: Demonstration, Discussion Response to Teaching: Verbalize Understanding, Return Demonstration, Reinforcement Needed Time/GCodes Time In: 935 Time Out: 1050 Total Billed Treatment Time: 75 Total Billed Treatment 1 visit, GT x2 units, EX x2 units, FA x1 unit GWYN SHEIKH PTA May 06, 2019 12:40
[2019-05-06] MEDS: NAPROXEN 250 MG (NAPROSYN) TABLET PO SCH (14:11)
[2019-05-06] MEDS: ENOXAPARIN 40 MG/0.4 ML (LOVENOX) SYR SC SCH (16:27)
[2019-05-06] MEDS: GABAPENTIN 100 MG (NEURONTIN) CAP PO SCH (16:27)
[2019-05-06 18:00] VITALS: BP 164/74
[2019-05-06] MEDS: DULoxetine 30 MG (CYMBALTA) CAP PO SCH (20:11)
[2019-05-06] MEDS: MONTELUKAST 10 MG (SINGULAIR) TAB PO SCH (20:11)
[2019-05-06] MEDS: ALPRAZolam 0.25 MG (XANAX) TAB PO SCH (20:11)
[2019-05-07 05:14] VITALS: BP 159/73
[2019-05-07] MEDS: KCL 10 MEQ TAB (MICRO K) PO SCH (06:46)
[2019-05-07 08:50] VITALS: BP 136/71
[2019-05-07] MEDS: LOSARTAN 100 MG (COZAAR) TABLET PO SCH (08:51)
[2019-05-07] MEDS: meTOprolol TARTRATE 25 MG (LOPRESSOR) TABLET PO SCH ×2 (08:51→20:33)
[2019-05-07] MEDS: PANTOPRAZOLE 40 MG (PROTONIX) TAB PO SCH (08:51)
[2019-05-07] MEDS: FERROUS SULF 325 MG (IRON) TAB PO SCH (08:51)
[2019-05-07] MEDS: amLODIPine 5 MG (NORVASC) TAB PO SCH (08:51)
[2019-05-07] MEDS: ACETAMINOPHEN 325 MG TABLET PO SCH ×2 (08:51→20:32)
[2019-05-07] MEDS: MAGNESIUM OXIDE (MAG-OX)400 MG TAB PO SCH ×2 (08:51→20:32)
[2019-05-07] MEDS: polyethylene glycoL POWDER 17 GM (MIRALAX) PACK PO SCH ×2 (09:21→20:33)
[2019-05-07] MEDS: DOCUSATE SODIUM 100 MG (COLACE) CAP PO SCH ×2 (09:21→20:32)
[2019-05-07] MEDS: SENNA W/DOCUSATE (SENOKOT S) TABLET PO SCH ×2 (09:21→20:33)
[2019-05-07] MEDS: NAPROXEN 250 MG (NAPROSYN) TABLET PO SCH (12:41)
--- NOTE | 2019-05-07 15:07 | PM&R Progress Note ---
Subjective HPI/CC On Admission Date Seen by Provider: May 07, 2019 Time Seen by Provider: 14:00 Subjective/Events-last exam Patient doing better each day Less confusion Frail status remains No pain is reported Minimization of meds has helped and PCP performed that management No dyspnea No falls but increased risk Loose stools but this is chronic Always asking for more meds for vague and subtle issues so I will limit any new meds if at all possible Checked meds and labs Reviewed therapy notes Conferred with exhibitions and collections manager of Systems General: Fatigue Gastrointestinal: Nausea Neurological: Confusion Objective Exam Vital Signs Vital Signs Date Time Temp Pulse Resp B/P (MAP) Pulse Ox O2 Delivery O2 Flow Rate FiO2 05/07/19 18:00 36.6 80 16 172/76 (108) 96 Room Air Capillary Refill : Less Than 3 Seconds General Appearance: No Apparent Distress, WD/WN, Chronically ill, Thin HEENT: PERRL/EOMI, Pharynx Normal Neck: Full Range of Motion, Non Tender, Supple Respiratory: Chest Non Tender, Lungs Clear, Normal Breath Sounds, No Respiratory Distress Cardiovascular: Regular Rate, Rhythm, No Edema, Normal Peripheral Pulses Gastrointestinal: Normal Bowel Sounds, Non Tender, Soft Rectal: Deferred Back: Normal Inspection, No Vertebral Tenderness Extremity: Normal Capillary Refill, Non Tender, No Calf Tenderness, Pedal Edema (TRACE), Other (ECCHYMOSIS ON ARMS) Neurologic/Psychiatric: Alert, Oriented x3, Normal Mood/Affect, chief underwriter II-XII Norm as Tested Skin: Warm/Dry, Ecchymosis Lymphatic: No Adenopathy Results/Procedures Lab Patient resulted labs reviewed. FIM Transfers Therapy Code Descriptions/Definitions Functional [place] Measure: 0=Not Assessed/NA 4=Minimal Assistance 1=Total Assistance 5=Supervision or Setup 2=Maximal Assistance 6=Modified [place] 3=Moderate Assistance 7=Complete IndependenceSCALE: Activities may be completed with or without assistive devices. 1-Svcsrjdlbl-xmdgsma completes the activity by him/herself with no assistance from a helper. 5-Set-up or Clean-up Assistance-helper sets up or cleans up; patient completes activity. [place] assists only prior to or following the activity. 4-Supervision or Touching Assistance-helper provides verbal cues and/or touching/steadying and/or contact guard assistance as patient completes activity. Assistance may be provided throughout the activity or intermittently. 3-Partial/Moderate Assistance-helper does LESS THAN HALF the effort. [place] lifts, holds or supports trunk or limbs, but provides less than half the effort. 2-Substantial/Maximal Assistance-helper does MORE THAN HALF the effort. [place] lifts or holds trunk or limbs and provides more than half the effort. 3-Vdrudnwsf-pxhkph does ALL the effort. Patient does none of the effort to complete the activity. Or, the assistance of 2 or more helpers is required for the patient to complete the activity. If activity was not attempted, code reason: 7-Patient Refused. 9-Not Applicable-not attempted and the patient did not perform the activity before the current illness, exacerbation or injury. 10-Not Attempted due to Environmental Limitations-(lack of equipment, weather restraints, etc.). 88-Not Attempted due to Medical Conditions or Safety Concerns. Roll Left to Right (QC): 5 Sit to Lying (QC): 5 Sit to Stand (QC): 4 (skilled inst requred for safety and hand placement) Chair/Uqv-cs-Tzisy Xfer(QC): 5 Car Transfer (QC): 2 Gait Training Does the Patient Walk?: Yes Distance: 155, 130 Walk 10 feet (QC): 4 Walk 50 ft with 2 Turns(QC): 4 Walk 150 ft (QC): 4 Walking 10ft/uneven surface-QC: 3 Gait Persons Needed: 1 Gait Assistive Device: FWW Wheelchair Training Does the Pt Use a Wheelchair?: No Stair Training #of Steps: 1 1 Step (curb) (QC): 3 4 Steps (QC): 9 12 Steps (QC): 9 Balance Picking up an Object (QC): 88 ADL-Treatment Eating (QC): 4 (Able to complete with handing drink to pt. Pt states she does not have any issues eating at home) Oral Hygiene (QC): 4 (CGA for oral hygiene while standing at sink with FWW. ) Shower/Bathe Self (QC): 2 (Max A for LB/ back/ bottom/ hair- pt requires max A for drying off) Upper Body Dressing (QC): 4 (SPV for UBD) Lower Body Dressing (QC): 4 (CGA while standing to manage pants over hips) On/Off Footwear (QC): 2 (max A ) Toileting Hygiene (QC): 3 (Kannan for hygiene following BM. CGA with verbal cues for clothing management. ) Toilet Transfer (QC): 4 (CGA) Assessment/Plan Assessment and Plan Assess & Plan/Chief Complaint Assessment: Debility Encephalopathy Frail status Anemia chronic Falls Neuropathy Polypharmacy plan: Minimize meds IRF PT OT Bed alarm Requests new med for subtle symptoms frequently so will minimize new and more meds (1) Encephalopathy Assessment & Plan: IMPROVED - CONTINUE WITH SUPPORTIVE CARE, ADJUST MEDICATIONS NEEDED. (2) Frailty Assessment & Plan: SHOULD IMPROVE WITH THERAPY (3) Neuropathy Assessment & Plan: CHRONIC - SHE IS ON GABAPENTIN - WILL DECREASE DOSE FROM 200MG TO 100MG, MONITOR RESPONSE (4) Polypharmacy Assessment & Plan: APPROPRIATE POLYPHARMACY DUE TO SEVERE HYPERTENSION WITH DIFFICULT TO CONTROL BLOOD PRESSURE REQUIRING MULTIPLE AGENTS FOR LOWERING OF BLOOD PRESSURE. (5) Falls Qualifiers: Encounter type: subsequent encounter Qualified Codes: W19.XXXD - Unspecified fall, subsequent encounter (6) Cerebrovascular disease Assessment & Plan: SUPPORTIVE CARE, BLOOD PRESSURE CONTROL (7) Hypertension Qualifiers: Hypertension type: essential hypertension Qualified Codes: I10 - Essential (primary) hypertension CAIT RAMIREZ DO May 07, 2019 15:06
[2019-05-07] MEDS: ENOXAPARIN 40 MG/0.4 ML (LOVENOX) SYR SC SCH (17:19)
[2019-05-07] MEDS: GABAPENTIN 100 MG (NEURONTIN) CAP PO SCH (17:19)
[2019-05-07] MEDS: ACETAMINOPHEN 325 MG TABLET PO PRN (17:25)
[2019-05-07 18:00] VITALS: BP 172/76
[2019-05-07] MEDS: ALPRAZolam 0.25 MG (XANAX) TAB PO SCH (20:32)
[2019-05-07] MEDS: MONTELUKAST 10 MG (SINGULAIR) TAB PO SCH (20:33)
[2019-05-07] MEDS: DULoxetine 30 MG (CYMBALTA) CAP PO SCH (20:33)
[2019-05-08 05:39] VITALS: BP 150/70
[2019-05-08 05:53] LABS: BASOPHILS # (AUTO) 0.1 10^3/uL (0.0-0.1); BASOPHILS % (AUTO) 1 % (0-10); EOSINOPHILS # (AUTO) 0.3 10^3/uL (0.0-0.3); EOSINOPHILS % (AUTO) 3 % (0-10); HEMATOCRIT 33 % (35-52); HEMOGLOBIN 10.3 G/DL (11.5-16.0); LYMPHOCYTES # (AUTO) 2.2 X 10^3 (1.0-4.0); LYMPHOCYTES % (AUTO) 25 % (12-44); MEAN CORPUSCULAR HEMOGLOBIN 30 PG (25-34); MEAN CORPUSCULAR HGB CONC 32 G/DL (32-36); MEAN CORPUSCULAR VOLUME 93 FL (80-99); MEAN PLATELET VOLUME 9.3 FL (7.4-10.4); MONOCYTES # (AUTO) 0.8 X 10^3 (0.0-1.0); MONOCYTES % (AUTO) 9 % (0-12); NEUTROPHILS # (AUTO) 5.4 X 10^3 (1.8-7.8); NEUTROPHILS % (AUTO) 62 % (42-75); PLATELET COUNT 259 10^3/uL (130-400); RED CELL DISTRIBUTION WIDTH 13.1 % (10.0-14.5); WHITE BLOOD COUNT 8.6 10^3/uL (4.3-11.0)
[2019-05-08 06:20] LABS: ALBUMIN 3.5 GM/DL (3.2-4.5); BILIRUBIN,TOTAL 0.3 MG/DL (0.1-1.0); CALCIUM 9.2 MG/DL (8.5-10.1); CREATININE SERUM 0.92 MG/DL (0.60-1.30); POTASSIUM 4.3 MMOL/L (3.6-5.0)
[2019-05-08] MEDS: KCL 10 MEQ TAB (MICRO K) PO SCH (06:50)
--- NOTE | 2019-05-08 08:33 | PM&R Progress Note ---
Subjective HPI/CC On Admission Date Seen by Provider: May 08, 2019 Time Seen by Provider: 08:45 Subjective/Events-last exam Labs remain normal Speech rafael will evaluate whether she can be advanced of pureed diet Holding bowel treatment due to loose stools Has a tongue ulcer, magic mouthwash will be applied Overall very frail and debilitated No falls but increased risk Loose stools but this is chronic Always asking for more meds for vague and subtle issues so I will limit any new meds if at all possible Checked meds and labs Reviewed therapy notes Conferred with lever operator of Systems General: Fatigue Neurological: Weakness, Numbness, Incoordination Objective Exam Vital Signs Vital Signs Date Time Temp Pulse Resp B/P (MAP) Pulse Ox O2 Delivery O2 Flow Rate FiO2 05/09/19 04:10 37.0 72 20 152/71 (98) 94 Room Air Capillary Refill : Less Than 3 Seconds General Appearance: No Apparent Distress, WD/WN, Chronically ill, Thin HEENT: PERRL/EOMI, Pharynx Normal Neck: Full Range of Motion, Non Tender, Supple Respiratory: Chest Non Tender, Lungs Clear, Normal Breath Sounds, No Respiratory Distress Cardiovascular: Regular Rate, Rhythm, No Edema, Normal Peripheral Pulses Gastrointestinal: Normal Bowel Sounds, Non Tender, Soft Rectal: Deferred Back: Normal Inspection, No Vertebral Tenderness Extremity: Normal Capillary Refill, Non Tender, No Calf Tenderness, Pedal Edema (TRACE), Other (ECCHYMOSIS ON ARMS) Neurologic/Psychiatric: Alert, Oriented x3, Normal Mood/Affect, byproduct engineer II-XII Norm as Tested Skin: Warm/Dry, Ecchymosis Lymphatic: No Adenopathy Results/Procedures Lab Patient resulted labs reviewed. FIM Transfers Therapy Code Descriptions/Definitions Functional [place] Measure: 0=Not Assessed/NA 4=Minimal Assistance 1=Total Assistance 5=Supervision or Setup 2=Maximal Assistance 6=Modified [place] 3=Moderate Assistance 7=Complete IndependenceSCALE: Activities may be completed with or without assistive devices. 2-Xmascbnkbo-rjcqyph completes the activity by him/herself with no assistance from a helper. 5-Set-up or Clean-up Assistance-helper sets up or cleans up; patient completes activity. [place] assists only prior to or following the activity. 4-Supervision or Touching Assistance-helper provides verbal cues and/or touching/steadying and/or contact guard assistance as patient completes activity. Assistance may be provided throughout the activity or intermittently. 3-Partial/Moderate Assistance-helper does LESS THAN HALF the effort. [place] lifts, holds or supports trunk or limbs, but provides less than half the effort. 2-Substantial/Maximal Assistance-helper does MORE THAN HALF the effort. [place] lifts or holds trunk or limbs and provides more than half the effort. 9-Wvaxaofjj-rimfae does ALL the effort. Patient does none of the effort to complete the activity. Or, the assistance of 2 or more helpers is required for the patient to complete the activity. If activity was not attempted, code reason: 7-Patient Refused. 9-Not Applicable-not attempted and the patient did not perform the activity before the current illness, exacerbation or injury. 10-Not Attempted due to Environmental Limitations-(lack of equipment, weather restraints, etc.). 88-Not Attempted due to Medical Conditions or Safety Concerns. Roll Left to Right (QC): 5 Sit to Lying (QC): 5 Sit to Stand (QC): 4 (skilled inst requred for safety and hand placement) Chair/Wee-vr-Ehzxj Xfer(QC): 5 Car Transfer (QC): 2 Gait Training Does the Patient Walk?: Yes Distance: 155, 130 Walk 10 feet (QC): 4 Walk 50 ft with 2 Turns(QC): 4 Walk 150 ft (QC): 4 Walking 10ft/uneven surface-QC: 3 Gait Persons Needed: 1 Gait Assistive Device: FWW Wheelchair Training Does the Pt Use a Wheelchair?: No Stair Training #of Steps: 1 1 Step (curb) (QC): 3 4 Steps (QC): 9 12 Steps (QC): 9 Balance Picking up an Object (QC): 88 ADL-Treatment Eating (QC): 4 (Able to complete with handing drink to pt. Pt states she does not have any issues eating at home) Oral Hygiene (QC): 4 (CGA for oral hygiene while standing at sink with FWW. ) Shower/Bathe Self (QC): 2 (Max A for LB/ back/ bottom/ hair- pt requires max A for drying off) Upper Body Dressing (QC): 4 (SPV for UBD) Lower Body Dressing (QC): 4 (CGA while standing to manage pants over hips) On/Off Footwear (QC): 2 (max A ) Toileting Hygiene (QC): 3 (Kannan for hygiene following BM. CGA with verbal cues for clothing management. ) Toilet Transfer (QC): 4 (CGA) Assessment/Plan Assessment and Plan Assess & Plan/Chief Complaint Assessment: Debility Encephalopathy Frail status Anemia chronic Falls Neuropathy Polypharmacy plan: Minimize meds IRF PT OT Bed alarm Requests new med for subtle symptoms frequently so will minimize new and more meds (1) Encephalopathy Assessment & Plan: IMPROVED - CONTINUE WITH SUPPORTIVE CARE, ADJUST MEDICATIONS NEEDED. (2) Frailty Assessment & Plan: SHOULD IMPROVE WITH THERAPY (3) Neuropathy Assessment & Plan: CHRONIC - SHE IS ON GABAPENTIN - WILL DECREASE DOSE FROM 200MG TO 100MG, MONITOR RESPONSE (4) Polypharmacy Assessment & Plan: APPROPRIATE POLYPHARMACY DUE TO SEVERE HYPERTENSION WITH DIFFICULT TO CONTROL BLOOD PRESSURE REQUIRING MULTIPLE AGENTS FOR LOWERING OF BLOOD PRESSURE. (5) Falls Qualifiers: Encounter type: subsequent encounter Qualified Codes: W19.XXXD - Unspecified fall, subsequent encounter (6) Cerebrovascular disease Assessment & Plan: SUPPORTIVE CARE, BLOOD PRESSURE CONTROL (7) Hypertension Qualifiers: Hypertension type: essential hypertension Qualified Codes: I10 - Essential (primary) hypertension CAIT RAMIREZ DO May 08, 2019 08:33
--- NOTE | 2019-05-08 08:52 | Progress Note ---
Subjective Subjective Date Seen by Provider: May 08, 2019 Time Seen by Provider: 08:50 Review of Systems General: Fatigue HEENT: No Head Aches Pulmonary: Dyspnea Cardiovascular: No: Chest Pain, Palpitations Gastrointestinal: Nausea Musculoskeletal: neck pain, shoulder pain, back pain, leg pain Neurological: Confusion All Other Systems Reviewed All Other Systems Reviewed: Yes Objective Exam Vital Signs Vital Signs - First Documented 05/04/19 05/04/19 15:10 15:43 Temp 37.2 Pulse 95 Resp 20 B/P (MAP) 172/78 Pulse Ox 95 O2 Delivery Room Air Capillary Refill : Less Than 3 Seconds General Appearance: No Apparent Distress, WD/WN, Chronically ill, Thin Eyes: Bilateral Eye Normal Inspection, Bilateral Eye PERRL, Bilateral Eye EOMI HEENT: PERRL/EOMI, Pharynx Normal Neck: Full Range of Motion, Non Tender, Supple Respiratory: Chest Non Tender, Lungs Clear, Normal Breath Sounds, No Respiratory Distress Cardiovascular: Regular Rate, Rhythm, No Edema, Normal Peripheral Pulses Gastrointestinal: Normal Bowel Sounds, Non Tender, Soft Rectal: Deferred Back: Normal Inspection, No Vertebral Tenderness Extremity: Normal Capillary Refill, Non Tender, No Calf Tenderness, Pedal Edema (TRACE), Other (ECCHYMOSIS ON ARMS) Neurologic/Psychiatric: Alert, Oriented x3, Normal Mood/Affect, video editing intern II-XII Norm as Tested Skin: Warm/Dry, Ecchymosis Lymphatic: No Adenopathy Results Lab Laboratory Tests 05/08/19 05:30: White Blood Count 8.6, Red Blood Count 3.48L, Hemoglobin 10.3L, Hematocrit 33L, Mean Corpuscular Volume 93, Mean Corpuscular Hemoglobin 30, Mean Corpuscular Hemoglobin Concent 32, Red Cell Distribution Width 13.1, Platelet Count 259, Mean Platelet Volume 9.3, Neutrophils (%) (Auto) 62, Lymphocytes (%) (Auto) 25, Monocytes (%) (Auto) 9, Eosinophils (%) (Auto) 3, Basophils (%) (Auto) 1, Neutrophils # (Auto) 5.4, Lymphocytes # (Auto) 2.2, Monocytes # (Auto) 0.8, Eosinophils # (Auto) 0.3, Basophils # (Auto) 0.1, Sodium Level 139, Potassium Level 4.3, Chloride Level 102, Carbon Dioxide Level 27, Anion Gap 10, Blood Urea Nitrogen 28H, Creatinine 0.92, Estimat Glomerular Filtration Rate 59, BUN/Creatinine Ratio 30, Glucose Level 95, Calcium Level 9.2, Corrected Calcium 9.6, Total Bilirubin 0.3, Aspartate Amino Transf (AST/SGOT) 16, Alanine Aminotransferase (ALT/SGPT) 22, Alkaline Phosphatase 45, Total Protein 6.0L, Albumin 3.5 Assessment/Plan Assessment/Plan Admission Dx ENCEPHALOPATHY HYPERTENSION DEPRESSION Problems: (1) Encephalopathy Assessment & Plan: IMPROVED - CONTINUE WITH SUPPORTIVE CARE, ADJUST MEDICATIONS NEEDED. (2) Frailty Assessment & Plan: SHOULD IMPROVE WITH THERAPY (3) Neuropathy Assessment & Plan: CHRONIC - SHE IS ON GABAPENTIN - WILL DECREASE DOSE FROM 200MG TO 100MG, MONITOR RESPONSE (4) Polypharmacy Assessment & Plan: APPROPRIATE POLYPHARMACY DUE TO SEVERE HYPERTENSION WITH DIFFICULT TO CONTROL BLOOD PRESSURE REQUIRING MULTIPLE AGENTS FOR LOWERING OF BLOOD PRESSURE. (5) Falls Qualifiers: Qualified Codes: W19.XXXD - Unspecified fall, subsequent encounter (6) Cerebrovascular disease Assessment & Plan: SUPPORTIVE CARE, BLOOD PRESSURE CONTROL (7) Hypertension Qualifiers: Qualified Codes: I10 - Essential (primary) hypertension Admission Dx ENCEPHALOPATHY HYPERTENSION DEPRESSION Clinical Quality Measures Admission Status Admission Dx ENCEPHALOPATHY HYPERTENSION DEPRESSION DVT/VTE Risk/Contraindication: Risk Factor Score Per Nursin RFS Level Per Nursing on Admit: 4+=Very High SANJEEV UNDERWOOD MD May 08, 2019 08:51
[2019-05-08] MEDS: PANTOPRAZOLE 40 MG (PROTONIX) TAB PO SCH (09:25)
[2019-05-08] MEDS: LOSARTAN 100 MG (COZAAR) TABLET PO SCH (09:25)
[2019-05-08] MEDS: MAGNESIUM OXIDE (MAG-OX)400 MG TAB PO SCH ×2 (09:25→20:39)
[2019-05-08] MEDS: amLODIPine 5 MG (NORVASC) TAB PO SCH (09:25)
[2019-05-08] MEDS: FERROUS SULF 325 MG (IRON) TAB PO SCH (09:25)
[2019-05-08] MEDS: DOCUSATE SODIUM 100 MG (COLACE) CAP PO SCH ×2 (09:26→20:28)
[2019-05-08] MEDS: meTOprolol TARTRATE 25 MG (LOPRESSOR) TABLET PO SCH ×2 (09:26→20:38)
[2019-05-08] MEDS: polyethylene glycoL POWDER 17 GM (MIRALAX) PACK PO SCH ×2 (09:27→20:28)
[2019-05-08] MEDS: SENNA W/DOCUSATE (SENOKOT S) TABLET PO SCH ×2 (09:27→20:29)
[2019-05-08] MEDS: ACETAMINOPHEN 325 MG TABLET PO SCH ×2 (09:34→20:39)
--- NOTE | 2019-05-08 10:11 | Occupational Ther Daily Note ---
OT Current Status-Daily Note Subjective Pt seen in bathroom, utilizing bathroom. Pt states will pull light when done. Pt completes, agreeable to OT tx session. Pt states pain in arms/ legs and states she sometimes has this pain, does not c/o pain during session. Mental Status/Objective Patient Orientation: Normal For Age ADL-Treatment Therapy Code Descriptions/Definitions Functional [place] Measure: 0=Not Assessed/NA 4=Minimal Assistance 1=Total Assistance 5=Supervision or Setup 2=Maximal Assistance 6=Modified [place] 3=Moderate Assistance 7=Complete IndependenceSCALE: Activities may be completed with or without assistive devices. 7-Qxvimovvxh-ducwaga completes the activity by him/herself with no assistance from a helper. 5-Set-up or Clean-up Assistance-helper sets up or cleans up; patient completes activity. Mcandrews assists only prior to or following the activity. 4-Supervision or Touching Assistance-helper provides verbal cues and/or touching /steadying and/or contact guard assistance as patient completes activity. Assistance may be provided throughout the activity or intermittently. 3-Partial/Moderate Assistance-helper does LESS THAN HALF the effort. Mcandrews lifts, holds or supports trunk or limbs, but provides less than half the effort. 2-Substantial/Maximal Assistance-helper does MORE THAN HALF the effort. Mcandrews lifts or holds trunk or limbs and provides more than half the effort. 8-Jaolmymke-xmxnbr does ALL the effort. Patient does none of the effort to complete the activity. Or, the assistance of 2 or more helpers is required for the patient to complete the activity. If activity was not attempted, code reason: 7-Patient Refused. 9-Not Applicable-not attempted and the patient did not perform the activity before the current illness, exacerbation or injury. 10-Not Attempted due to Environmental Limitations-(lack of equipment, weather restraints, etc.). 88-Not Attempted due to Medical Conditions or Safety Concerns. Eating (QC): 5 (s/u: pt unable to open milk/ containers. Able to manipulate straw ) Oral Hygiene (QC): 4 (SUP at sink) Shower/Bathe Self (QC): 7 (States completed with nursing yesterday) Upper Body Dressing (QC): 5 (s/u) Lower Body Dressing (QC): 4 (SBA) Toileting Hygiene (QC): 3 (min A for BM thoroughness) Toilet Transfer (QC): 4 (SUP, use of walker.) Other Treatment Pt completes toileting, agrees to change clothing. Pt completes UB 3x as she is unable to find clothing that is comfortable. Pt educated on completing laundry so she has clean/ comfortable clothing. Pt agrees. Prior, pt completes eating yo gurt and ensure with s/u. Pt compeltes oral hygiene with SUP, ambulates to laundry to complete routine with min A for adjusting knobs. Pt ambulates with SBA to therapy gym, agrees to complete fine motor activities as pt and OT discussed difficulties manipulating packaging at breakfast. Pt completes resistance pins with increased time, removes beads from yellow theraputty with emphasis of use of pincers, completes pegs once more (utilizes BUE for black/ most resistance clothes pins). Pt returns to room, utilizes restroom with SUP/ min A for thoroughness, returns to recliner with all needs met, call light within reach, DO and nursing present. Education OT Patient Education: Correct positioning, Exercise program, Home exercise program, Purpose of tx/functional activities, Transfer techniques Teaching Recipient: Patient Teaching Methods: Demonstration, Discussion Response to Teaching: Verbalize Understanding, Return Demonstration OT Short Term Goals Short Term Goals Upper body dressin Lower body dressin OT Process Engineering Intern Goals Process Engineering Intern Goals Time Frame: May 19, 2019 Eating (QC): 6 Oral Hygiene (QC): 6 Toileting Hygiene (QC): 6 Shower/Bathe Self (QC): 6 Upper Body Dressing (QC): 6 Lower Body Dressing (QC): 6 On/Off Footwear (QC): 6 Additional Goals: 1-Demonstrate ADL Tasks, 2-Verbalize Understanding, 3- ImproveStrength/Oliverio 1=Demonstrate adherence to instructed precautions during ADL tasks. 2=Patient will verbalize/demonstrate understanding of assistive devices/modifications for ADL. 3=Patient will improve strength/tolerance for activity to enable patient to perform ADL's. OT Education/Plan Problem List/Assessment Assessment: Decreased Activ Tolerance, Decreased UE Strength, Impaired I ADL's, Impaired Self-Care Skills Discharge Recommendations Plan/Recommendations: Continue POC Treatment Plan/Plan of Care Treatment,Training & Education: Yes Patient would benefit from OT for education, treatment and training to promote independence in ADL's, mobility, safety and/or upper extremity function for ADL's. Plan of Care: ADL Retraining, Caregiver Training, Functional Mobility, Group Exercise/Act as Ind, UE Funct Exercise/Act Treatment Duration: May 19, 2019 Frequency: At least 5 of 7 days/Wk (IRF) Estimated Hrs Per Day: 1.5 hours per day Agreement: Yes Rehab Potential: Fair Time/GCodes Start Time: 08:00 Stop Time: 09:00 Total Time Billed (hr/min): 60 Billed Treatment Time 1, ADL 3, EX (60) YULIA SULLIVAN OTR May 08, 2019 10:11
--- NOTE | 2019-05-08 11:01 | Physical Therapy Daily Note ---
PT Daily Note-Current Subjective Pt. up in recliner. Agrees reluctantly to Rx. States she is having pain in her left hip area at 6/10 Pain Numeric Pain Scale: 6 Location: Left Location Body Site: Hip Pain Description: Ache Mental Status Patient Orientation: Person, Place, Time, Situation Transfers SCALE: Activities may be completed with or without assistive devices. 9-Jpfwfrpfnc-bdomkns completes the activity by him/herself with no assistance from a helper. 5-Set-up or Clean-up Assistance-helper sets up or cleans up; patient completes a ctivity. Gifford assists only prior to or following the activity. 4-Supervision or Touching Assistance-helper provides verbal cues and/or touching/steadying and/or contact guard assistance as patient completes activity. Assistance may be provided throughout the activity or intermittently. 3-Partial/Moderate Assistance-helper does LESS THAN HALF the effort. Gifford lifts, holds or supports trunk or limbs, but provides less than half the effort. 2-Substantial/Maximal Assistance-helper does MORE THAN HALF the effort. Gifford lifts or holds trunk or limbs and provides more than half the effort. 2-Ofjrwzvlw-tkduje does ALL the effort. Patient does none of the effort to complete the activity. Or, the assistance of 2 or more helpers is required for the patient to complete the activity. If activity was not attempted, code reason: 7-Patient Refused. 9-Not Applicable-not attempted and the patient did not perform the activity before the current illness, exacerbation or injury. 10-Not Attempted due to Environmental Limitations-(lack of equipment, weather restraints, etc.). 88-Not Attempted due to Medical Conditions or Safety Concerns. Roll Left & Right (QC): 5 Sit to Lying (QC): 6 Lying to Sitting/Side of Bed(Q: 6 Sit to Stand (QC): 6 Chair/Qll-nk-Eogdp Xfer(QC): 6 Toilet Transfer (QC): 6 Car Transfer (QC): 6 Gait Training Does the Patient Walk?: Yes Walk 10 feet (QC): 5 Walk 50 ft with 2 Turns(QC): 5 Walk 150 ft (QC): 5 Gait Persons Needed: 1 Gait Assistive Device: FWW very kyphotic, needs directed as to where to turn etc Stair Training Stair Training: Handrails/: 2 handrails #of Steps: 4 4 Steps (QC): 4 Stairs: Pattern: Step to CGA and instruction for sequence Exercises Supine Ex: Bridging, Ankle pumps, Quad Set, Rolling, Glut sets, Heel Slides, Short Arc Quads, Scooting, Straight leg raise, Hip abd/add Supine Reps: 15 NuStep Minutes: 10 NuStep Workload: 3 Assessment Current Status: Good Progress needs guidance for all, progressing well, slow PT Correspondence Specialist Goals Group Home Goals PT Correspondence Specialist Goals Time Frame: Jun 03, 2019 Roll Left & Right (QC): 6 Sit to Lying (QC): 6 Lying-Sitting on Side/Bed(QC): 6 Sit to Stand (QC): 5 Chair/Qaw-cz-Aerfk Xfer(QC): 5 Toilet Transfer (QC): 5 Car Transfer (QC): 5 Does the Patient Walk: Yes Walk 10 feet (QC): 5 Walk 50ft with 2 Turns (QC): 5 Walk 150 ft (QC): 5 Walking 10ft on Uneven Surface: 5 1 Step (curb) (QC): 5 4 Steps (QC): 9 12 Steps (QC): 9 Picking up an Object (QC): 5 PT Plan Treatment/Plan Treatment Plan: Continue Plan of Care Treatment Plan: Bed Mobility, Concurrent Therapy, Education, Functional Activity Oliverio, Functional Strength, Group Therapy, Gait, Safety, Therapeutic Exercise, Transfers Treatment Duration: Jun 03, 2019 Frequency: At least 5 of 7 days/Wk (IRF) Estimated Hrs Per Day: 1.5 hours per day Patient and/or Family Agrees t: Yes Safety Risks/Education Patient Education: Gait Training, Transfer Techniques, Steps, Correct Positioning, Disease Process, Safety Issues Teaching Recipient: Patient Teaching Methods: Demonstration, Discussion Response to Teaching: Verbalize Understanding, Return Demonstration, Reinforcement Needed Time/GCodes Time In: 1000 Time Out: 1100 Total Billed Treatment Time: 60 Total Billed Treatment 1,EX25m,GT15m,FA20m DENG FOLEY DONKEY RIDE OPERATOR May 08, 2019 11:01
--- NOTE | 2019-05-08 11:22 | ST Dysphagia Evaluation ---
Speech Evaluation-General Medical Diagnosis acute metabolic encephalopathy Onset Date: May 01, 2019 Therapy Diagnosis Therapy Diagnosis: Oropharyngeal Dysphagia Precautions Precautions: Aspiration Referral Referring Physician: Dr. Ledezma Reason for Referral: Evaluation/Treatment Medical History Pertinent Medical History: Arthritis, CVA, HTN Reviewed History: Yes Social History Current Living Status: Alone Speech PLF/Current-Dysphagia Prior Level of Function Patient reported being on a modified diet when she was at [facility] prior to ARU admission. Subjective Patient was alert, pleasant, and cooperative for all evaluation tasks. Patient reported that she hasn't had much of an appetite. Patient sat upright in her chair for the duration of the evaluation. Cognitive Status Patient Orientation: Person, Place, Time, Eyes Open, Situation Oral Motor Skills Denture Type: Full- Upper Current Food Consistancy: Mechanical Soft Ability to Follow Directions: Good Oral Expression Ability: No Impairment Voice Voice Phonatory-Based Quality: Normal Voice Pitch: Normal Voice Loudness: Normal Face Facial Symmetry: Symmetrical Oral-Facial Assessment Oral-Facial Dentition: Normal Labial Seal Description: Normal Smile: Normal Lingual Protrusion: Normal Lingual ROM: Normal Lingual Strength: Normal Dysphagia Evaluation Consistencies Presented: Thin Liquid, Mechanical Soft Dietary Recommendations: Mechanical Soft Liquid Recommendations: Thin Swallowing Precautions: Alternate Liquids/Solids, Double Swallow, Decreased Bolus 1/2 Tsp, Liquids from Cup, Liquids from Straw, Small Bites and Sips, Sitting Upright 90 Degrees, Sitting 90 Degrees 30 Post Intake Dysphagia Evaluation Summary Patient was admitted to the ARU s/p acute metabolic encephalopathy. The patient was presented with thin liquid consistency via 1/2 tsp spoon and straw and presented with no s/s of penetration or aspiration. Patient was then presented with puree and mechanical soft consistencies via 1/2 tsp spoon. Patient presented no s/s of penetration or aspiration. It is recommended that patient receive a DYSPHAGIA II diet with thin liquids. Additionally, patient will utilize compensatory strategies of alternating liquids and solids, small bites and sips, and sitting upright for all oral intake. Barriers to Learning Mild cognitive deficits Speech Short Term Goals Short Term Goals Short Term Goals 1. Patient will complete memory tasks at 80% accuracy with minimal cues. 2. Patient will complete problem-solving tasks at 80% accuracy with minimal cues. 3. Patient will complete safety awareness tasks at 80% accuracy with minimal cues. 4. Patient will complete speech production tasks at 80% accuracy with minimal cues. 5. Patient will tolerate least restrictive diet without s/s of aspiration at 90%. 6. Patient will utilize compensatory strategies as trained at 90% with minimal cues. Speech Long-Term Goals Long-Term Goals 1. Patient will improve cognitive-communication necessary for safety and daily living tasks with minimal assist. 2. Patient will maintain adequate nutrition/hydration via safe and effective swallow function. Speech-Plan Patient/Family Goals Patient/Family Goals: Patient reports wanting to return to prior level of independence and mobility. Treatment Plan Speech Therapy Treatment Plan: Continue Plan of Care Treatment Duration: May 12, 2019 Frequency: 4 times per week (4 to 5 times) Estimated Hrs Per Day: .5 hour per day Rehab Potential: Fair Barriers to Learning: Mild cognitive deficits Pt/Family Agrees to Plan: Yes Safety Risks/Education Teaching Recipient: Patient Teaching Methods: Demonstration, Discussion Response to Teaching: Verbalize Understanding Education Topics Provided: Utilization of compensatory strategies during all oral intake. Time Speech Therapy Time In: 09:15 Speech Therapy Time Out: 09:30 Total Billed Time: 15 Billed Treatment Time 1JOVITA BETHANIA ST May 08, 2019 11:22
--- NOTE | 2019-05-08 11:30 | Speech Therapy Daily Note ---
Speech Daily Progress Note Subjective Date Seen by Provider: May 08, 2019 Time Seen by Provider: 09:00 Patient was alert, pleasant, and cooperative for all therapy tasks. Patient reported that she was feeling weak and tired today. Patient sat upright in her chair for the duration of treatment. Objective Patient completed memory tasks pertaining to family structure and weekend events with 80% accuracy and minimal cues. Assessment Assessment Current Status: Good Progress Treatment Plan Continue Plan of Care Speech Short Term Goals Short Term Goals Short Term Goals 1. Patient will complete memory tasks at 80% accuracy with minimal cues. 2. Patient will complete problem-solving tasks at 80% accuracy with minimal cues. 3. Patient will complete safety awareness tasks at 80% accuracy with minimal cues. 4. Patient will complete speech production tasks at 80% accuracy with minimal cues. 5. Patient will tolerate least restrictive diet without s/s of aspiration at 90%. 6. Patient will utilize compensatory strategies as trained at 90% with minimal cues. Speech Optician Apprentice Dispensing Goals Mcc Goals 1. Patient will improve cognitive-communication necessary for safety and daily living tasks with minimal assist. 2. Patient will maintain adequate nutrition/hydration via safe and effective swallow function. Speech-Plan Patient/Family Goals Patient/Family Goals: Patient reported that she wishes to return home to previous level of independence and mobility. Treatment Plan Speech Therapy Treatment Plan: Continue Plan of Care Treatment Duration: May 12, 2019 Frequency: 4 times per week (4 to 5 times) Estimated Hrs Per Day: .5 hour per day Rehab Potential: Fair Barriers to Learning: Moderate cognitive deficits Pt/Family Agrees to Plan: Yes Safety Risks/Education Teaching Recipient: Patient Teaching Methods: Demonstration, Discussion Response to Teaching: Verbalize Understanding Education Topics Provided: Utilization of memory strategies to recall important information. Time Speech Therapy Time In: 09:00 Speech Therapy Time Out: 09:15 Total Billed Time: 15 Billed Treatment Time 1, WILFREDO Varela May 08, 2019 11:30
[2019-05-08] MEDS ORDERED: MAGIC MOUTHWASH, ADULT 155 ML BOTTLE PO SCH (12:21)
[2019-05-08] MEDS: NAPROXEN 250 MG (NAPROSYN) TABLET PO SCH (14:15)
[2019-05-08] MEDS: MAGIC MOUTHWASH (ADULT) PO SCH ×12 (14:15→20:39)
--- NOTE | 2019-05-08 14:26 | Therapy Group Daily Note ---
Therapy Daily Group Note Patient Education Topic Other List Below (transfers) Exercises LE Seated Exercise, UE Exercise Session Ratio (pt:therapist): 3:1 Goal of Session: Home Safety Strategies Goal Met for this Session: Yes Pt Benefit of Group: Contributions to Others, F/U Use of Strategies @Home, Increased Functional Safety, Increased Functional Strength, Improved Cognition, Recognition of Peers, Socialization Other/Notes Pt transported via w/c to [facility] for OT/PT group. Group consisted of introductions (name, place living, what makes you smile), socialization, seat UE/LE exercises and education on types of transfers throughout the home. Pt introduced self appropriately and actively listened to peers. Pt was able to complete UE/LE seated exercises with minimal modifications due to decreased ROM. Pt acknowledged understanding of educational topics by giving own personal strategies and experiences. After therapy, pt lying in bed with call light/p bonita in reach. All needs met in room. Start Time: 13:00 Stop Time: 14:10 Total Billed Treatment Time: 70 Total Billed Treatment 1-[facility] KAROLINA WALTERS May 08, 2019 14:26
[2019-05-08 16:00] VITALS: BP 146/71
[2019-05-08] MEDS: GABAPENTIN 100 MG (NEURONTIN) CAP PO SCH (17:06)
[2019-05-08] MEDS: ENOXAPARIN 40 MG/0.4 ML (LOVENOX) SYR SC SCH (17:07)
[2019-05-08] MEDS: ALPRAZolam 0.25 MG (XANAX) TAB PO SCH (20:38)
[2019-05-08] MEDS: MONTELUKAST 10 MG (SINGULAIR) TAB PO SCH (20:38)
[2019-05-08] MEDS: DULoxetine 30 MG (CYMBALTA) CAP PO SCH (20:38)
[2019-05-09] MEDS: ACETAMINOPHEN 325 MG TABLET PO PRN (04:04)
[2019-05-09 04:10] VITALS: BP 152/71
[2019-05-09] MEDS: KCL 10 MEQ TAB (MICRO K) PO SCH (06:10)
--- NOTE | 2019-05-09 08:00 | NUR ---
UNHAPPY WITH DYSPHAGIA 2 DIET. STATES FOOD GETS STUCK IN TEETH. PER PATIENT'S REQUEST AND AFTER DISCUSSING WITH SPEECH THERAPIST, WAS CHANGED BACK TO PUREED DIET. STATES DIARRHEA HAS STOPPED.
[2019-05-09] MEDS: MAGIC MOUTHWASH (ADULT) PO SCH ×16 (08:04→20:42)
[2019-05-09] MEDS: meTOprolol TARTRATE 25 MG (LOPRESSOR) TABLET PO SCH ×2 (08:33→20:40)
[2019-05-09] MEDS: LOSARTAN 100 MG (COZAAR) TABLET PO SCH (08:34)
[2019-05-09] MEDS: amLODIPine 5 MG (NORVASC) TAB PO SCH (08:34)
[2019-05-09] MEDS: MAGNESIUM OXIDE (MAG-OX)400 MG TAB PO SCH ×2 (08:34→20:39)
[2019-05-09] MEDS: FERROUS SULF 325 MG (IRON) TAB PO SCH (08:34)
[2019-05-09] MEDS: ACETAMINOPHEN 325 MG TABLET PO SCH ×2 (08:34→20:39)
[2019-05-09] MEDS: PANTOPRAZOLE 40 MG (PROTONIX) TAB PO SCH (08:34)
[2019-05-09] MEDS: polyethylene glycoL POWDER 17 GM (MIRALAX) PACK PO SCH ×2 (08:39→20:30)
[2019-05-09] MEDS: DOCUSATE SODIUM 100 MG (COLACE) CAP PO SCH ×2 (08:39→20:42)
[2019-05-09] MEDS: SENNA W/DOCUSATE (SENOKOT S) TABLET PO SCH ×2 (08:39→20:42)
--- NOTE | 2019-05-09 08:53 | PM&R Progress Note ---
Subjective HPI/CC On Admission Date Seen by Provider: May 09, 2019 Time Seen by Provider: 09:00 Subjective/Events-last exam Pt plans for DC tomorrow Loose stools are resolved Pureed diet will be restarted since the other diet gets caught in her dentures Checked meds and labs Reviewed therapy notes Conferred with engineering manager of Systems General: Fatigue Objective Exam Vital Signs Vital Signs Date Time Temp Pulse Resp B/P (MAP) Pulse Ox O2 Delivery O2 Flow Rate FiO2 05/10/19 05:23 36.5 76 18 155/72 (99) 94 Room Air Capillary Refill : Less Than 3 Seconds General Appearance: No Apparent Distress, WD/WN, Chronically ill, Thin HEENT: PERRL/EOMI, Pharynx Normal Neck: Full Range of Motion, Non Tender, Supple Respiratory: Chest Non Tender, Lungs Clear, Normal Breath Sounds, No Respiratory Distress Cardiovascular: Regular Rate, Rhythm, No Edema, Normal Peripheral Pulses Gastrointestinal: Normal Bowel Sounds, Non Tender, Soft Rectal: Deferred Back: Normal Inspection, No Vertebral Tenderness Extremity: Normal Capillary Refill, Non Tender, No Calf Tenderness, Pedal Edema (TRACE), Other (ECCHYMOSIS ON ARMS) Neurologic/Psychiatric: Alert, Oriented x3, Normal Mood/Affect, geospatial applications developer II-XII Norm as Tested Skin: Warm/Dry, Ecchymosis Lymphatic: No Adenopathy Results/Procedures Lab Patient resulted labs reviewed. FIM Transfers Therapy Code Descriptions/Definitions Functional [place] Measure: 0=Not Assessed/NA 4=Minimal Assistance 1=Total Assistance 5=Supervision or Setup 2=Maximal Assistance 6=Modified [place] 3=Moderate Assistance 7=Complete IndependenceSCALE: Activities may be completed with or without assistive devices. 7-Svqnwoyqcw-zvslxoq completes the activity by him/herself with no assistance from a helper. 5-Set-up or Clean-up Assistance-helper sets up or cleans up; patient completes activity. [place] assists only prior to or following the activity. 4-Supervision or Touching Assistance-helper provides verbal cues and/or touching/steadying and/or contact guard assistance as patient completes activity. Assistance may be provided throughout the activity or intermittently. 3-Partial/Moderate Assistance-helper does LESS THAN HALF the effort. [place] lifts, holds or supports trunk or limbs, but provides less than half the effort. 2-Substantial/Maximal Assistance-helper does MORE THAN HALF the effort. [place] lifts or holds trunk or limbs and provides more than half the effort. 6-Inuqmzwxz-onbreb does ALL the effort. Patient does none of the effort to complete the activity. Or, the assistance of 2 or more helpers is required for the patient to complete the activity. If activity was not attempted, code reason: 7-Patient Refused. 9-Not Applicable-not attempted and the patient did not perform the activity before the current illness, exacerbation or injury. 10-Not Attempted due to Environmental Limitations-(lack of equipment, weather restraints, etc.). 88-Not Attempted due to Medical Conditions or Safety Concerns. Roll Left to Right (QC): 5 Sit to Lying (QC): 6 Sit to Stand (QC): 6 Chair/Kvf-cb-Hkqvm Xfer(QC): 6 Car Transfer (QC): 6 Gait Training Does the Patient Walk?: Yes Distance: 155, 130 Walk 10 feet (QC): 5 Walk 50 ft with 2 Turns(QC): 5 Walk 150 ft (QC): 5 Walking 10ft/uneven surface-QC: 3 Gait Persons Needed: 1 Gait Assistive Device: FWW Wheelchair Training Does the Pt Use a Wheelchair?: No Stair Training Stair Training: Handrails/: 2 handrails #of Steps: 4 1 Step (curb) (QC): 3 4 Steps (QC): 4 12 Steps (QC): 9 Stairs: Pattern: Step to Balance Picking up an Object (QC): 88 ADL-Treatment Eating (QC): 5 (s/u: pt unable to open milk/ containers. Able to manipulate straw ) Oral Hygiene (QC): 4 (SUP at sink) Shower/Bathe Self (QC): 7 (States completed with nursing yesterday) Upper Body Dressing (QC): 5 (s/u) Lower Body Dressing (QC): 4 (SBA) On/Off Footwear (QC): 2 (max A ) Toileting Hygiene (QC): 3 (min A for BM thoroughness) Toilet Transfer (QC): 4 (SUP, use of walker.) Assessment/Plan Assessment and Plan Assess & Plan/Chief Complaint Assessment: Debility Encephalopathy Frail status Anemia chronic Falls Neuropathy Polypharmacy plan: Minimize meds IRF PT OT Bed alarm Requests new med for subtle symptoms frequently so will minimize new and more meds DC home (1) Encephalopathy Assessment & Plan: IMPROVED - CONTINUE WITH SUPPORTIVE CARE, ADJUST MEDICATIONS NEEDED. (2) Frailty Assessment & Plan: SHOULD IMPROVE WITH THERAPY (3) Neuropathy Assessment & Plan: CHRONIC - SHE IS ON GABAPENTIN - WILL DECREASE DOSE FROM 200MG TO 100MG, MONITOR RESPONSE (4) Polypharmacy Assessment & Plan: APPROPRIATE POLYPHARMACY DUE TO SEVERE HYPERTENSION WITH DIFFICULT TO CONTROL BLOOD PRESSURE REQUIRING MULTIPLE AGENTS FOR LOWERING OF BLOOD PRESSURE. (5) Falls Qualifiers: Encounter type: subsequent encounter Qualified Codes: W19.XXXD - Unspecified fall, subsequent encounter (6) Cerebrovascular disease Assessment & Plan: SUPPORTIVE CARE, BLOOD PRESSURE CONTROL (7) Hypertension Qualifiers: Hypertension type: essential hypertension Qualified Codes: I10 - Essential (primary) hypertension CAIT RAMIREZ DO May 09, 2019 08:53
--- NOTE | 2019-05-09 09:56 | Occupational Ther Daily Note ---
OT Current Status-Daily Note Subjective Pt seen in recliner chair, states she had difficulty eating mechanical soft diet, would like to return to [facility]. Nursing present during statement. Pt states 8/10 pain in toes/ sore mm obliques. Pt states pain in toes is normal, end of session states pain has lessened. QCs gathered on this date. Mental Status/Objective Patient Orientation: Normal For Age ADL-Treatment Therapy Code Descriptions/Definitions Functional [place] Measure: 0=Not Assessed/NA 4=Minimal Assistance 1=Total Assistance 5=Supervision or Setup 2=Maximal Assistance 6=Modified [place] 3=Moderate Assistance 7=Complete IndependenceSCALE: Activities may be completed with or without assistive devices. 9-Xlczigaxwg-iuivdps completes the activity by him/herself with no assistance from a helper. 5-Set-up or Clean-up Assistance-helper sets up or cleans up; patient completes activity. [place] assists only prior to or following the activity. 4-Supervision or Touching Assistance-helper provides verbal cues and/or touching/steadying and/or contact guard assistance as patient completes activity. Assistance may be provided throughout the activity or intermittently. 3-Partial/Moderate Assistance-helper does LESS THAN HALF the effort. [place] lifts, holds or supports trunk or limbs, but provides less than half the effort. 2-Substantial/Maximal Assistance-helper does MORE THAN HALF the effort. [place] lifts or holds trunk or limbs and provides more than half the effort. 0-Xxbwymuyc-xupnjr does ALL the effort. Patient does none of the effort to complete the activity. Or, the assistance of 2 or more helpers is required for the patient to complete the activity. If activity was not attempted, code reason: 7-Patient Refused. 9-Not Applicable-not attempted and the patient did not perform the activity before the current illness, exacerbation or injury. 10-Not Attempted due to Environmental Limitations-(lack of equipment, weather restraints, etc.). 88-Not Attempted due to Medical Conditions or Safety Concerns. Eating (QC): 5 (Pt requires assist opening containers, per pt difficulty with [facility] soft diet. Pt able to bring drink to mouth / drink.) Oral Hygiene (QC): 4 (SUP at stance at sink. Pt states sore mouth in corners of lips and within mouth, denies dentures in mouth until end of session where she completes with SUP) Bathing Location: L Arm, R Arm, L Upper Leg, R Upper Leg, L Lower Leg (incl uding foot), R Lower Leg (including foot), Chest, Abdomen, Buttocks (Arleen), Perineal Area Shower/Bathe Self (QC): 4 (completes all areas (sponge bath) in recliner chair, pt requires min A/ intermittent assist on bottom for thoroughness. SBA in stance during bathing. Pt maintains balance) Upper Body Dressing (QC): 6 Lower Body Dressing (QC): 4 (SUP during activity) On/Off Footwear: 6 (completes with IND, brings opposing foot to knee) Toileting Hygiene (QC): 4 (min A for thoroughness for BM hygiene) Toilet Transfer (QC): 4 (SUP, good use of walker/ safety) Other Treatment Pt seen in recliner chair, agrees to QC's on this date. Pt states she is fatigued/ sore and would prefer sponge bath. Pt environment prepped, nursing present. Pt completes all ADLs in room. Pt ambulates to therapy gym, states one thing she was told was not to bend over/ pick items off floor. Pt completes picking up 4 small items from floor with catering director with cues for positioning. Pt states catering director at home "too heavy," pt educated on where to find electronics commodity manager reachers and use of reachers for LB dressing tasks if fatigued. Pt transfer item from catering director to hand to OT with SBA for balance. Pt completes standing for 2 min increments 3x to complete fine motor manipulation at tabletop. Pt states fatigue after ~2 min and requires 3 rest breaks between. Pt returns to room, utilizes bathroom with SUP/ min A for bottom thoroughness, washes hands, dons dentures, and returns to recliner. Pt in recliner end of session, all needs met, call light in reach, pt left with [employer] student. Education OT Patient Education: Correct positioning, Exercise program, Home exercise program, Modified ADL techniques, Purpose of tx/functional activities, Safety issues Teaching Recipient: Patient Teaching Methods: Demonstration, Discussion Response to Teaching: Verbalize Understanding, Return Demonstration, Reinforcement Needed OT Short Term Goals Short Term Goals Upper body dressin Lower body dressin OT Lead Radiologic Technologist Goals [facility] Goals Time Frame: May 19, 2019 Eating (QC): 6 Oral Hygiene (QC): 6 Toileting Hygiene (QC): 6 Shower/Bathe Self (QC): 6 Upper Body Dressing (QC): 6 (met) Lower Body Dressing (QC): 6 On/Off Footwear (QC): 6 (met) Additional Goals: 1-Demonstrate ADL Tasks, 2-Verbalize Understanding, 3- ImproveStrength/Oliverio 1=Demonstrate adherence to instructed precautions during ADL tasks. 2=Patient will verbalize/demonstrate understanding of assistive devices/modifications for ADL. 3=Patient will improve strength/tolerance for activity to enable patient to perform ADL's. OT Education/Plan Problem List/Assessment Assessment: Decreased Activ Tolerance, Decreased UE Strength, Impaired Funct Balance, Impaired I ADL's, Impaired Self-Care Skills Discharge Recommendations Plan/Recommendations: Continue POC Therapy Discharge Recommendati: Scheduled Assistance, Home & Family Equpiment Recommendations-D/C: Clinical Trial Educator (light weight) Treatment Plan/Plan of Care Treatment,Training & Education: Yes Patient would benefit from OT for education, treatment and training to promote independence in ADL's, mobility, safety and/or upper extremity function for ADL's. Plan of Care: ADL Retraining, Caregiver Training, Functional Mobility, Group Exercise/Act as Ind, UE Funct Exercise/Act Treatment Duration: May 19, 2019 Frequency: At least 5 of 7 days/Wk (IRF) Estimated Hrs Per Day: 1.5 hours per day Agreement: Yes Rehab Potential: Fair Time/GCodes Start Time: 08:00 Stop Time: 09:15 Total Time Billed (hr/min): 75 Billed Treatment Time 1, ADL 4 (60), EX (15)= 75 YULIA SULLIVAN OTR May 09, 2019 09:56
[2019-05-09] MEDS: NAPROXEN 250 MG (NAPROSYN) TABLET PO SCH (11:22)
--- NOTE | 2019-05-09 11:25 | Physical Therapy Daily Note ---
PT Daily Note-Current Subjective Pt sitting in recliner upon arrival. Pt agrees to PT. Pt reports feeling "unsure how much progress I am making". Pain Location: No Pain Reported Mental Status Patient Orientation: Person, Place, Situation Transfers SCALE: Activities may be completed with or without assistive devices. 6-Gqqvlndgel-nlrqwzz completes the activity by him/herself with no assistance from a helper. 5-Set-up or Clean-up Assistance-helper sets up or cleans up; patient completes activity. [place] assists only prior to or following the activity. 4-Supervision or Touching Assistance-helper provides verbal cues and/or touching/steadying and/or contact guard assistance as patient completes activity. Assistance may be provided throughout the activity or intermittently. 3-Partial/Moderate Assistance-helper does LESS THAN HALF the effort. [place] lift s, holds or supports trunk or limbs, but provides less than half the effort. 2-Substantial/Maximal Assistance-helper does MORE THAN HALF the effort. [place] lifts or holds trunk or limbs and provides more than half the effort. 9-Wmpzhgmkf-upiazp does ALL the effort. Patient does none of the effort to complete the activity. Or, the assistance of 2 or more helpers is required for the patient to complete the activity. If activity was not attempted, code reason: 7-Patient Refused. 9-Not Applicable-not attempted and the patient did not perform the activity before the current illness, exacerbation or injury. 10-Not Attempted due to Environmental Limitations-(lack of equipment, weather restraints, etc.). 88-Not Attempted due to Medical Conditions or Safety Concerns. Roll Left & Right (QC): 6 Sit to Lying (QC): 6 Lying to Sitting/Side of Bed(Q: 6 Sit to Stand (QC): 6 Chair/Zcx-yn-Earbm Xfer(QC): 6 Toilet Transfer (QC): 6 Car Transfer (QC): 6 Weight Bearing Right Lower Extremity: Right Full Weight Bearing Left Lower Extremity: Left Full Weight Bearing Gait Training Does the Patient Walk?: Yes Distance: 150' x2 Walk 10 feet (QC): 6 Walk 50 ft with 2 Turns(QC): 6 Walk 150 ft (QC): 6 Walking 10ft/uneven surface-QC: 6 Gait Persons Needed: 1 Gait Assistive Device: FWW Pt is very kyphotic and walks with slow yudi. ADDRESSER gives VC to walk closer to FWW. Wheelchair Training Does the Pt Use a Wheelchair?: No Stair Training Stair Training: Handrails/: 2 handrails #of Steps: 4 1 Step (curb) (QC): 6 4 Steps (QC): 6 12 Steps (QC): 9 Stairs: Pattern: Step to Balance Picking up an Object (QC): 9 Special Test Comments Pt reports using clockmaker at home. Treatments Pt uses restroom to start Rx. Pt completes QC scoring items listed above. Pt returns to room to rest in recliner at end of Rx. Pt has all needs met including feet up on pillow, blanket & call light in hand. Assessment Current Status: Good Progress Pt lacks confidence in progress pt has made. Pt is Mod I with transfers and mobility. PT Correction Goals Correction Goals PT Water Mangle Tender Goals Time Frame: Jun 03, 2019 Roll Left & Right (QC): 6 Sit to Lying (QC): 6 Lying-Sitting on Side/Bed(QC): 6 Sit to Stand (QC): 5 Chair/Ohn-vl-Zqggq Xfer(QC): 5 Toilet Transfer (QC): 5 Car Transfer (QC): 5 Does the Patient Walk: Yes Walk 10 feet (QC): 5 Walk 50ft with 2 Turns (QC): 5 Walk 150 ft (QC): 5 Walking 10ft on Uneven Surface: 5 1 Step (curb) (QC): 5 4 Steps (QC): 9 12 Steps (QC): 9 Picking up an Object (QC): 5 PT Plan Problem List Problem List: Activity Tolerance Treatment/Plan Treatment Plan: Continue Plan of Care Treatment Plan: Bed Mobility, Concurrent Therapy, Education, Functional Activity Oliverio, Functional Strength, Group Therapy, Gait, Safety, Therapeutic Exercise, Transfers Treatment Duration: Jun 03, 2019 Frequency: At least 5 of 7 days/Wk (IRF) Estimated Hrs Per Day: 1.5 hours per day Patient and/or Family Agrees t: Yes Safety Risks/Education Patient Education: Gait Training, Transfer Techniques, Correct Positioning, Safety Issues Teaching Recipient: Patient Teaching Methods: Discussion Response to Teaching: Verbalize Understanding Time/GCodes Time In: 1000 Time Out: 1045 Total Billed Treatment Time: 45 Total Billed Treatment 1, GT (20m) & FA x2 (25m) LIAM RUBI ADDRESSER May 09, 2019 11:25
--- NOTE | 2019-05-09 12:04 | Speech Therapy Daily Note ---
Speech Daily Progress Note Subjective Date Seen by Provider: May 09, 2019 Time Seen by Provider: 09:15 Patient was alert, pleasant, and cooperative for all therapy tasks. Patient reported that she was eager to return home and eat her familiar food. She reported that her upgraded diet of mechanical soft was not tolerated well and that it make her teeth hurt. Objective Patient completed compensatory strategies of sitting upright and small bites and sips with 90% accuracy and minimal cues. Assessment Assessment Current Status: Good Progress Treatment Plan Discontinue ST Speech Short Term Goals Short Term Goals Short Term Goals 1. Patient will complete memory tasks at 80% accuracy with minimal cues. 2. Patient will complete problem-solving tasks at 80% accuracy with minimal cues. 3. Patient will complete safety awareness tasks at 80% accuracy with minimal cues. 4. Patient will complete speech production tasks at 80% accuracy with minimal cues. 5. Patient will tolerate least restrictive diet without s/s of aspiration at 90%. 6. Patient will utilize compensatory strategies as trained at 90% with minimal cues. Speech Manager Utilization Goals Jail Goals 1. Patient will improve cognitive-communication necessary for safety and daily living tasks with minimal assist. 2. Patient will maintain adequate nutrition/hydration via safe and effective swallow function. Speech-Plan Patient/Family Goals Patient/Family Goals: Patient reported that she wishes to return home to prior level of mobility and independence. Treatment Plan Speech Therapy Treatment Plan: Discontinue ST Treatment Duration: May 12, 2019 Frequency: 4 times per week (4 to 5 times) Estimated Hrs Per Day: .5 hour per day Rehab Potential: Fair Barriers to Learning: Mild cognitive deficits Pt/Family Agrees to Plan: Yes Safety Risks/Education Teaching Recipient: Patient Teaching Methods: Demonstration Response to Teaching: Verbalize Understanding Education Topics Provided: Utilization of compensatory strategies during all oral intake. Time Speech Therapy Time In: 09:15 Speech Therapy Time Out: 09:45 Total Billed Time: 30 Billed Treatment Time 1, DYST No QUALITY CODES EXPRESSION OF IDEAS/WANTS: 4 UNDERSTANDING VERBAL CONTENT: 3 BRIEF INTERVIEW OF MENTAL STATUS: YES REPETITION OF 3 WORDS: YES TEMPORAL ORIENTATION OF DAY: CORRECT, MONTH: CORRECT, DAY: INCORRECT RECALL OF SOCK: YES, COLOR: YES, BED: YES MEMORY/RECALL ABILITY OF CURRENT SEASON AND THAT SHE IS IN THE HOSPITAL WILFREDO CINTRON May 09, 2019 12:04
--- NOTE | 2019-05-09 14:03 | Physical Therapy Daily Note ---
PT Daily Note-Current Subjective Pt sitting in recliner upon arrival. Pt agrees to PT. Pain Location: No Pain Reported Mental Status Patient Orientation: Person, Place, Situation Transfers SCALE: Activities may be completed with or without assistive devices. 3-Gkgfygnqnp-wuwwjwr completes the activity by him/herself with no assistance from a helper. 5-Set-up or Clean-up Assistance-helper sets up or cleans up; patient completes activity. [place] assists only prior to or following the activity. 4-Supervision or Touching Assistance-helper provides verbal cues and/or touching/steadying and/or contact guard assistance as patient completes activity. Assistance may be provided throughout the activity or intermittently. 3-Partial/Moderate Assistance-helper does LESS THAN HALF the effort. [place] lifts, holds or supports trunk or limbs, but provides less than half the effort. 2-Substantial/Maximal Assistance-helper does MORE THAN HALF the effort. [place] lifts or holds trunk or limbs and provides more than half the effort. 4-Glbexiacn-wffjyy does ALL the effort. Patient does none of the effort to complete the activity. Or, the assistance of 2 or more helpers is required for the patient to complete the activity. If activity was not attempted, code reason: 7-Patient Refused. 9-Not Applicable-not attempted and the patient did not perform the activity before the current illness, exacerbation or injury. 10-Not Attempted due to Environmental Limitations-(lack of equipment, weather restraints, etc.). 88-Not Attempted due to Medical Conditions or Safety Concerns. Sit to Stand (QC): 6 Toilet Transfer (QC): 6 Weight Bearing Right Lower Extremity: Right Full Weight Bearing Left Lower Extremity: Left Full Weight Bearing Gait Training Does the Patient Walk?: Yes Distance: 15' Walk 10 feet (QC): 6 Gait Persons Needed: 1 Gait Assistive Device: FWW Pt walks with very slow yudi. Exercises Supine Ex: Ankle pumps, Quad Set, Glut sets, Heel Slides, Hip abd/add Supine Reps: 15 Treatments Pt transfers from recliner to standing. Pt ambulates to restroom. After toileting, pt ambulates back to recliner to rest then completes Supine EX with feet elevated in recliner. Pt resting at end of Rx with all needs met, i ncluding pillow to elevate legs, blanket & call light in hand. Assessment Current Status: Good Progress Pt tolerates Rx well but due to slow yudi & movement, takes extended time to complete tasks. PT Fdc Goals Video Specialist Goals PT Fdc Goals Time Frame: Jun 03, 2019 Roll Left & Right (QC): 6 Sit to Lying (QC): 6 Lying-Sitting on Side/Bed(QC): 6 Sit to Stand (QC): 5 Chair/Jqj-hj-Yitwk Xfer(QC): 5 Toilet Transfer (QC): 5 Car Transfer (QC): 5 Does the Patient Walk: Yes Walk 10 feet (QC): 5 Walk 50ft with 2 Turns (QC): 5 Walk 150 ft (QC): 5 Walking 10ft on Uneven Surface: 5 1 Step (curb) (QC): 5 4 Steps (QC): 9 12 Steps (QC): 9 Picking up an Object (QC): 5 PT Plan Problem List Problem List: Activity Tolerance Treatment/Plan Treatment Plan: Continue Plan of Care Treatment Plan: Bed Mobility, Concurrent Therapy, Education, Functional Activity Oliverio, Functional Strength, Group Therapy, Gait, Safety, Therapeutic Exercise, Transfers Treatment Duration: Jun 03, 2019 Frequency: At least 5 of 7 days/Wk (IRF) Estimated Hrs Per Day: 1.5 hours per day Patient and/or Family Agrees t: Yes Safety Risks/Education Patient Education: Gait Training, Transfer Techniques, Correct Positioning, Safety Issues Teaching Recipient: Patient Teaching Methods: Discussion Response to Teaching: Verbalize Understanding Time/GCodes Time In: 1330 Time Out: 1400 Total Billed Treatment Time: 30 Total Billed Treatment 1, FA (15m) & EX (15m) LIAM RUBI MEDICAL PHOTOGRAPHER May 09, 2019 14:03
[2019-05-09] MEDS: GABAPENTIN 100 MG (NEURONTIN) CAP PO SCH (15:41)
[2019-05-09] MEDS: ENOXAPARIN 40 MG/0.4 ML (LOVENOX) SYR SC SCH (15:42)
--- NOTE | 2019-05-09 16:56 | NUR ---
CM/SS CONCURRENT NOTE Met with patient today to explore her progress and discuss the continuum for discharge planning. Patient appears improved overall. She is motivated to return home as soon as she is safely able to do so. She especially has routines for foods that have not been reproduced in the hospital and she is missing that comfortable familiarity. Had similar discussion with patient's daughter Britni Osullivan. Reviewed the positives of patient's support system and all the activities/supports/supplemental activities that would resume when she returns home. Britni expressed her proposed timeline for return home was more toward first of next week, unless patient showed independent abilities consistently prior to that. Patient has had difficulties with her mouth and teeth which prohibits eating certain foods and/or consistencies. Britni said patient had been taken for multiple dental care visits and DDS team has attempted to get patient as comfortable as possible with upper dentures and her lower remaining teeth. Patient was told she could benefit from a denture cream to help with cushion and hold, but Britni does not think she is using this consistently. Explored Assisted Living options with Britni, she indicated patient has refused that thus far. Explored community care home stay to extend patient's 24/7 environment but Britni said patient would refuse and family did not favor. Discuss patient in weekly team conference tomorrow. Based on input from therapy, continue to encourage patient's maximum performance since returning home as before remains the primary goal. Patient is at day 5 of a 13 day expected LOS based on admission status.
[2019-05-09 18:00] VITALS: BP 157/74
[2019-05-09] MEDS: ALPRAZolam 0.25 MG (XANAX) TAB PO SCH (20:40)
[2019-05-09] MEDS: MONTELUKAST 10 MG (SINGULAIR) TAB PO SCH (20:40)
[2019-05-09] MEDS: DULoxetine 30 MG (CYMBALTA) CAP PO SCH (20:40)
[2019-05-10 05:23] VITALS: BP 155/72
[2019-05-10] MEDS: KCL 10 MEQ TAB (MICRO K) PO SCH (06:17)
[2019-05-10] MEDS: FERROUS SULF 325 MG (IRON) TAB PO SCH (08:41)
[2019-05-10] MEDS: meTOprolol TARTRATE 25 MG (LOPRESSOR) TABLET PO SCH ×2 (08:41→20:22)
[2019-05-10] MEDS: MAGNESIUM OXIDE (MAG-OX)400 MG TAB PO SCH ×2 (08:41→20:22)
[2019-05-10] MEDS: PANTOPRAZOLE 40 MG (PROTONIX) TAB PO SCH (08:41)
[2019-05-10] MEDS: amLODIPine 5 MG (NORVASC) TAB PO SCH (08:42)
[2019-05-10] MEDS: ACETAMINOPHEN 325 MG TABLET PO SCH ×2 (08:42→20:23)
[2019-05-10] MEDS: LOSARTAN 100 MG (COZAAR) TABLET PO SCH (08:42)
[2019-05-10] MEDS: MAGIC MOUTHWASH (ADULT) PO SCH ×16 (08:42→20:31)
[2019-05-10] MEDS: SENNA W/DOCUSATE (SENOKOT S) TABLET PO SCH (09:14)
[2019-05-10] MEDS: polyethylene glycoL POWDER 17 GM (MIRALAX) PACK PO SCH ×2 (09:14→20:32)
[2019-05-10] MEDS: DOCUSATE SODIUM 100 MG (COLACE) CAP PO SCH (09:14)
--- NOTE | 2019-05-10 09:17 | Speech Therapy Daily Note ---
Speech Daily Progress Note Subjective Date Seen by Provider: May 10, 2019 Time Seen by Provider: 00:30 The patient was alert, content, and cooperative for all therapy tasks. Patient reported that she does not like any of the food provided to her and reported that her bottom teeth are still very painful. Patient sat in her chair for the duration of treatment. Objective Patient completed problem solving tasks pertaining to categorical member naming with 80% accuracy and minimal cues. Assessment Assessment Current Status: Good Progress Treatment Plan Continue Plan of Care Speech Short Term Goals Short Term Goals Short Term Goals 1. Patient will complete memory tasks at 80% accuracy with minimal cues. 2. Patient will complete problem-solving tasks at 80% accuracy with minimal cues. 3. Patient will complete safety awareness tasks at 80% accuracy with minimal cues. 4. Patient will complete speech production tasks at 80% accuracy with minimal cues. 5. Patient will tolerate least restrictive diet without s/s of aspiration at 90%. 6. Patient will utilize compensatory strategies as trained at 90% with minimal cues. Speech Community Health Coordinator Goals Fpc Goals 1. Patient will improve cognitive-communication necessary for safety and daily living tasks with minimal assist. 2. Patient will maintain adequate nutrition/hydration via safe and effective swallow function. Speech-Plan Patient/Family Goals Patient/Family Goals: Patient reported that she wishes to return home to prior level of independence and mobility. Treatment Plan Speech Therapy Treatment Plan: Continue Plan of Care Treatment Duration: May 12, 2019 Frequency: 4 times per week (4 to 5 times) Estimated Hrs Per Day: .5 hour per day Rehab Potential: Fair Barriers to Learning: Moderate cognitive deficits Pt/Family Agrees to Plan: Yes Safety Risks/Education Teaching Recipient: Patient Teaching Methods: Demonstration, Discussion Response to Teaching: Verbalize Understanding Education Topics Provided: Continued utilization of external memory aids to recall important information Time Speech Therapy Time In: 09:15 Speech Therapy Time Out: 09:45 Total Billed Time: 30 Billed Treatment Time 1[address] May 10, 2019 09:17
--- NOTE | 2019-05-10 10:13 | Occupational Ther Daily Note ---
OT Current Status-Daily Note Subjective Pt seen in bed, easily wakes upon entry. Pt agreeable to OT, states she slept well but her pain has maintained through the night- pt states toe pain normal but obliques still sore from day before. Mental Status/Objective Patient Orientation: Normal For Age ADL-Treatment Therapy Code Descriptions/Definitions Functional [place] Measure: 0=Not Assessed/NA 4=Minimal Assistance 1=Total Assistance 5=Supervision or Setup 2=Maximal Assistance 6=Modified [place] 3=Moderate Assistance 7=Complete IndependenceSCALE: Activities may be completed with or without assistive devices. 7-Trzntcuomv-xuoppgk completes the activity by him/herself with no assistance from a helper. 5-Set-up or Clean-up Assistance-helper sets up or cleans up; patient completes activity. [place] assists only prior to or following the activity. 4-Supervision or Touching Assistance-helper provides verbal cues and/or touching/steadying and/or contact guard assistance as patient completes activity. Assistance may be provided throughout the activity or intermittently. 3-Partial/Moderate Assistance-helper does LESS THAN HALF the effort. [place] lifts, holds or supports trunk or limbs, but provides less than half the effort. 2-Substantial/Maximal Assistance-helper does MORE THAN HALF the effort. [place] lifts or holds trunk or limbs and provides more than half the effort. 4-Ubjftzvmi-vrikhq does ALL the effort. Patient does none of the effort to complete the activity. Or, the assistance of 2 or more helpers is required for the patient to complete the activity. If activity was not attempted, code reason: 7-Patient Refused. 9-Not Applicable-not attempted and the patient did not perform the activity before the current illness, exacerbation or injury. 10-Not Attempted due to Environmental Limitations-(lack of equipment, weather restraints, etc.). 88-Not Attempted due to Medical Conditions or Safety Concerns. Eating (QC): 5 (s/u opening containers.) Oral Hygiene (QC): 6 (IND at sink) Upper Body Dressing (QC): 5 Lower Body Dressing (QC): 4 (SUP) On/Off Footwear: 6 Toileting Hygiene (QC): 4 (SUP- good maintenance of balance.) Toilet Transfer (QC): 4 (SUP) Other Treatment Pt agrees to therapy, pt bed mob with SUP. Pt requests bathroom, completes with SUP along with oral hygiene. Pt returns to chair, agrees to changing. See above for specifics. Pt questioned on what she would like to continue to work on to return home safely. pt states she would like to continue working on strength/ endurance. Pt agrees to theraband ex, completes 3 sets of 10 reps of UB theraband with CGA, requires rest break. Pt then completes landcare officer/ pinch strengthening ex with hand sponge with cues, seated. Pt stands again for 5 sets of exercises. Returns to sit to complete pinching exercises. Pt educated on completing throughout day, completes 3 sets of 10 reps bilaterally while seated. Return-demonstrates. pt s/u for food, left in chair with call light beside her, all needs met. Education OT Patient Education: Correct positioning, Exercise program, Home exercise program, Purpose of tx/functional activities Teaching Recipient: Patient Teaching Methods: Demonstration, Discussion Response to Teaching: Verbalize Understanding, Return Demonstration OT Short Term Goals Short Term Goals Upper body dressin Lower body dressin OT Telephone Solicitor Supervisor Goals Intermediate Goals Time Frame: May 19, 2019 Eating (QC): 6 Oral Hygiene (QC): 6 Toileting Hygiene (QC): 6 Shower/Bathe Self (QC): 6 Upper Body Dressing (QC): 6 (met) Lower Body Dressing (QC): 6 On/Off Footwear (QC): 6 (met) Additional Goals: 1-Demonstrate ADL Tasks, 2-Verbalize Understanding, 3- ImproveStrength/Oliverio 1=Demonstrate adherence to instructed precautions during ADL tasks. 2=Patient will verbalize/demonstrate understanding of assistive devices/modifications for ADL. 3=Patient will improve strength/tolerance for activity to enable patient to perform ADL's. OT Education/Plan Problem List/Assessment Assessment: Decreased Activ Tolerance, Decreased UE Strength, Impaired I ADL's, Impaired Self-Care Skills Discharge Recommendations Plan/Recommendations: Continue POC Therapy Discharge Recommendati: Scheduled Assistance Equpiment Recommendations-D/C: Bit Bender Treatment Plan/Plan of Care Treatment,Training & Education: Yes Patient would benefit from OT for education, treatment and training to promote independence in ADL's, mobility, safety and/or upper extremity function for ADL' s. Plan of Care: ADL Retraining, Caregiver Training, Functional Mobility, Group Exercise/Act as Ind, UE Funct Exercise/Act Treatment Duration: May 19, 2019 Frequency: At least 5 of 7 days/Wk (IRF) Estimated Hrs Per Day: 1.5 hours per day Agreement: Yes Rehab Potential: Fair Time/GCodes Start Time: 08:00 Stop Time: 09:00 Total Time Billed (hr/min): 60 Billed Treatment Time 1, ADL 2, EX 2 (60) YULIA SULLIVAN OTR May 10, 2019 10:13
--- NOTE | 2019-05-10 10:22 | NUR ---
Pastoral care visit.
--- NOTE | 2019-05-10 11:10 | Physical Therapy Daily Note ---
PT Daily Note-Current Subjective Pt sitting in recliner upon arrival. Pt agrees to PT. Pain Numeric Pain Scale: 3 Pain Description: Ache Comment: Pt reports generalized pain but citing toes & breasts. Mental Status Patient Orientation: Person, Place, Situation Transfers SCALE: Activities may be completed with or without assistive devices. 1-Twnsvnfsts-xccyzbx completes the activity by him/herself with no assistance from a helper. 5-Set-up or Clean-up Assistance-helper sets up or cleans up; patient completes activity. [place] assists only prior to or following the activity. 4-Supervision or Touching Assistance-helper provides verbal cues and/or touching/steadying and/or contact guard assistance as patient completes activity. Assistance may be provided throughout the activity or intermittently. 3-Partial/Moderate Assistance-helper does LESS THAN HALF the effort. [place] lifts, holds or supports trunk or limbs, but provides less than half the effort. 2-Substantial/Maximal Assistance-helper does MORE THAN HALF the effort. [place] lifts or holds trunk or limbs and provides more than half the effort. 7-Ptroejyvi-avxfdg does ALL the effort. Patient does none of the effort to complete the activity. Or, the assistance of 2 or more helpers is required for the patient to complete the activity. If activity was not attempted, code reason: 7-Patient Refused. 9-Not Applicable-not attempted and the patient did not perform the activity before the current illness, exacerbation or injury. 10-Not Attempted due to Environmental Limitations-(lack of equipment, weather restraints, etc.). 88-Not Attempted due to Medical Conditions or Safety Concerns. Sit to Stand (QC): 6 Toilet Transfer (QC): 6 Weight Bearing Right Lower Extremity: Right Full Weight Bearing Left Lower Extremity: Left Full Weight Bearing Gait Training Does the Patient Walk?: Yes Distance: 150' x2 Walk 10 feet (QC): 6 Walk 50 ft with 2 Turns(QC): 6 Walk 150 ft (QC): 6 Gait Persons Needed: 1 Wheelchair Training Does the Pt Use a Wheelchair?: No Exercises NuStep Minutes: 12 NuStep Workload: 3 Treatments Pt stands then uses restroom. Pt ambulates in hallway. Pt uses NuStep for 12m at 3. Pt returns to room at end of Rx to rest in recliner. Pt has all needs met, call light in hand. Assessment Current Status: Good Progress Pt moves with slow yudi and takes extended time to complete tasks although has made gains with strength and activity tolerance. PT Care Home Goals Automobile Mechanic Helper Goals PT Automobile Mechanic Helper Goals Time Frame: Jun 03, 2019 Roll Left & Right (QC): 6 Sit to Lying (QC): 6 Lying-Sitting on Side/Bed(QC): 6 Sit to Stand (QC): 5 Chair/Fcn-zq-Lgwrz Xfer(QC): 5 Toilet Transfer (QC): 5 Car Transfer (QC): 5 Does the Patient Walk: Yes Walk 10 feet (QC): 5 Walk 50ft with 2 Turns (QC): 5 Walk 150 ft (QC): 5 Walking 10ft on Uneven Surface: 5 1 Step (curb) (QC): 5 4 Steps (QC): 9 12 Steps (QC): 9 Picking up an Object (QC): 5 PT Plan Problem List Problem List: Activity Tolerance Treatment/Plan Treatment Plan: Continue Plan of Care Treatment Plan: Bed Mobility, Concurrent Therapy, Education, Functional Activity [place], Functional Strength, Group Therapy, Gait, Safety, Therapeutic Exercise, Transfers Treatment Duration: Jun 03, 2019 Frequency: At least 5 of 7 days/Wk (IRF) Estimated Hrs Per Day: 1.5 hours per day Patient and/or Family Agrees t: Yes Safety Risks/Education Patient Education: Gait Training, Transfer Techniques, Correct Positioning, Safety Issues Teaching Recipient: Patient Teaching Methods: Discussion Response to Teaching: Verbalize Understanding Time/GCodes Time In: 1015 Time Out: 1100 Total Billed Treatment Time: 45 Total Billed Treatment 1, GT (20m), FA (15m), EX (10m) LIAM RUBI SOLID WASTE TECHNICIAN May 10, 2019 11:10
--- NOTE | 2019-05-10 11:23 | PM&R Progress Note ---
Subjective HPI/CC On Admission Date Seen by Provider: May 10, 2019 Time Seen by Provider: 10:30 Subjective/Events-last exam Modified independent walking 150 ft Very feeble DC planned for Wednesday Family doesn't think she is ready Magic mouthwash tolerated Pureed diet tolerated due to swerve mouth Kyphotic ambulation Checked meds and labs Reviewed therapy notes Conferred with behavioral medical director of Systems General: Fatigue Neurological: Confusion Objective Exam Vital Signs Vital Signs Date Time Temp Pulse Resp B/P (MAP) Pulse Ox O2 Delivery O2 Flow Rate FiO2 05/11/19 18:00 36.6 73 20 149/72 (97) 93 Room Air Capillary Refill : Less Than 3 Seconds General Appearance: No Apparent Distress, WD/WN, Chronically ill, Thin HEENT: PERRL/EOMI, Pharynx Normal Neck: Full Range of Motion, Non Tender, Supple Respiratory: Chest Non Tender, Lungs Clear, Normal Breath Sounds, No Respiratory Distress Cardiovascular: Regular Rate, Rhythm, No Edema, Normal Peripheral Pulses Gastrointestinal: Normal Bowel Sounds, Non Tender, Soft Rectal: Deferred Back: Normal Inspection, No Vertebral Tenderness Extremity: Normal Capillary Refill, Non Tender, No Calf Tenderness, Pedal Edema (TRACE), Other (ECCHYMOSIS ON ARMS) Neurologic/Psychiatric: Alert, Oriented x3, No Motor/Sensory Deficits, exterior door installer II- XII Norm as Tested, Depressed Affect Skin: Warm/Dry, Ecchymosis Lymphatic: No Adenopathy Results/Procedures Lab Patient resulted labs reviewed. FIM Transfers Therapy Code Descriptions/Definitions Functional [place] Measure: 0=Not Assessed/NA 4=Minimal Assistance 1=Total Assistance 5=Supervision or Setup 2=Maximal Assistance 6=Modified [place] 3=Moderate Assistance 7=Complete IndependenceSCALE: Activities may be completed with or without assistive devices. 4-Egicmuuexa-vnslfbn completes the activity by him/herself with no assistance from a helper. 5-Set-up or Clean-up Assistance-helper sets up or cleans up; patient completes activity. [place] assists only prior to or following the activity. 4-Supervision or Touching Assistance-helper provides verbal cues and/or touching/steadying and/or contact guard assistance as patient completes activity. Assistance may be provided throughout the activity or intermittently. 3-Partial/Moderate Assistance-helper does LESS THAN HALF the effort. [place] lifts, holds or supports trunk or limbs, but provides less than half the effort. 2-Substantial/Maximal Assistance-helper does MORE THAN HALF the effort. [place] lifts or holds trunk or limbs and provides more than half the effort. 4-Qhbphtsrc-hwvfuz does ALL the effort. Patient does none of the effort to complete the activity. Or, the assistance of 2 or more helpers is required for the patient to complete the activity. If activity was not attempted, code reason: 7-Patient Refused. 9-Not Applicable-not attempted and the patient did not perform the activity before the current illness, exacerbation or injury. 10-Not Attempted due to Environmental Limitations-(lack of equipment, weather restraints, etc.). 88-Not Attempted due to Medical Conditions or Safety Concerns. Roll Left to Right (QC): 6 Sit to Lying (QC): 6 Sit to Stand (QC): 6 Chair/Ecv-cb-Xjwsx Xfer(QC): 6 Car Transfer (QC): 6 Gait Training Does the Patient Walk?: Yes Distance: 150' x2 Walk 10 feet (QC): 6 Walk 50 ft with 2 Turns(QC): 6 Walk 150 ft (QC): 6 Walking 10ft/uneven surface-QC: 6 Gait Persons Needed: 1 Gait Assistive Device: FWW Wheelchair Training Does the Pt Use a Wheelchair?: No Stair Training Stair Training: Handrails/: 2 handrails #of Steps: 4 1 Step (curb) (QC): 6 4 Steps (QC): 6 12 Steps (QC): 9 Stairs: Pattern: Step to Balance Picking up an Object (QC): 9 ADL-Treatment Eating (QC): 5 (s/u opening containers.) Oral Hygiene (QC): 6 (IND at sink) Bathing Location: L Arm, R Arm, L Upper Leg, R Upper Leg, L Lower Leg (including foot), R Lower Leg (including foot), Chest, Abdomen, Buttocks (Arleen), Perineal Area Shower/Bathe Self (QC): 4 (completes all areas (sponge bath) in recliner chair, pt requires min A/ intermittent assist on bottom for thoroughness. SBA in stance during bathing. Pt maintains balance) Upper Body Dressing (QC): 5 Lower Body Dressing (QC): 4 (SUP) On/Off Footwear (QC): 6 Toileting Hygiene (QC): 4 (SUP- good maintenance of balance.) Toilet Transfer (QC): 4 (SUP) Assessment/Plan Assessment and Plan Assess & Plan/Chief Complaint Assessment: Debility Encephalopathy Frail status Anemia chronic Falls Neuropathy Polypharmacy plan: Minimize meds IRF PT OT Bed alarm Requests new med for subtle symptoms frequently so will minimize new and more meds DC home Wednesday (1) Encephalopathy Assessment & Plan: IMPROVED - CONTINUE WITH SUPPORTIVE CARE, ADJUST MEDICATIONS NEEDED. (2) Frailty Assessment & Plan: SHOULD IMPROVE WITH THERAPY (3) Neuropathy Assessment & Plan: CHRONIC - SHE IS ON GABAPENTIN - WILL DECREASE DOSE FROM 200MG TO 100MG, MONITOR RESPONSE (4) Polypharmacy Assessment & Plan: APPROPRIATE POLYPHARMACY DUE TO SEVERE HYPERTENSION WITH DIFFICULT TO CONTROL BLOOD PRESSURE REQUIRING MULTIPLE AGENTS FOR LOWERING OF BLOOD PRESSURE. (5) Falls Qualifiers: Encounter type: subsequent encounter Qualified Codes: W19.XXXD - Unspecified fall, subsequent encounter (6) Cerebrovascular disease Assessment & Plan: SUPPORTIVE CARE, BLOOD PRESSURE CONTROL (7) Hypertension Qualifiers: Hypertension type: essential hypertension Qualified Codes: I10 - Essential (primary) hypertension CAIT RAMIREZ DO May 10, 2019 11:23
[2019-05-10] MEDS: NAPROXEN 250 MG (NAPROSYN) TABLET PO SCH (12:15)
--- NOTE | 2019-05-10 14:28 | Therapy Group Daily Note ---
Therapy Daily Group Note Patient Education Topic Exercises Exercises LE Seated Exercise, UE Exercise Session Ratio (pt:therapist): 4:1 Goal of Session: Education on ARU Expectations, UE/LE Strengthing Goal Met for this Session: Yes Pt Benefit of Group: Contributions to Others, F/U Use of Strategies @Home, Increased Functional Safety, Increased Functional Strength, Improved Cognition, Recognition of Peers, Socialization Other/Notes Pt ambulated using FWW to [facility] area for OT/PT group. Group consisted of introductions (name, place living, blessings of nature), socialization, pt led UE/LE seated exercises and benefits of exercise. Pt introduced self appropriately and actively listened to peers. Pt was able to lead one exercise for group then completed other exercises without difficulty during seated UE/LE exercises. Pt acknowledge understanding of educational topic by giving own personal stories and completed each exercise with good technique. After group, pt lying in bed with call light/phone in reach. All needs met in room. Start Time: 13:00 Stop Time: 14:15 Total Billed Treatment Time: 75 Total Billed Treatment 1-GRP KAROLINA WALTERS May 10, 2019 14:28
--- NOTE | 2019-05-10 16:38 | NUR ---
CM/SS WEEKLY TEAM CONFERENCE SUMMARY Reviewed Summary with patient in person and with daughter Britni Osullivan by phone. Both are in agreement to discharge for 05/12/19. HHC: Patient has established services with [facility] for RN and bath aid. These services will be continued, and PT will be added with PT assessing for OT need. Gun [employer] has alerted [facility] staff of Wednesday dismissal. DME: Patient would like a morning show host weight welding instructor, this is a private pay item to be explored and purchased by patient/family. Finalize arrangements when orders available.
[2019-05-10] MEDS: ENOXAPARIN 40 MG/0.4 ML (LOVENOX) SYR SC SCH (16:49)
[2019-05-10] MEDS: GABAPENTIN 100 MG (NEURONTIN) CAP PO SCH (16:50)
[2019-05-10 17:15] VITALS: BP 137/67
[2019-05-10] MEDS: guaiFENesin (MUCINEX) 600 MG TAB PO PRN (18:19)
[2019-05-10] MEDS ORDERED: SENNA W/DOCUSATE (SENOKOT S) TABLET PO PRN (19:15)
[2019-05-10] MEDS ORDERED: DOCUSATE SODIUM 100 MG (COLACE) CAP PO PRN (19:15)
[2019-05-10] MEDS ORDERED: BISACODYL 10 MG SUPP (DULCOLAX) PR PRN (19:15)
[2019-05-10] MEDS: DULoxetine 30 MG (CYMBALTA) CAP PO SCH (20:22)
[2019-05-10] MEDS: MONTELUKAST 10 MG (SINGULAIR) TAB PO SCH (20:22)
[2019-05-10] MEDS: ALPRAZolam 0.25 MG (XANAX) TAB PO SCH (20:22)
[2019-05-11] MEDS: ACETAMINOPHEN 325 MG TABLET PO PRN (02:05)
[2019-05-11 06:09] VITALS: BP 150/71
[2019-05-11] MEDS: KCL 10 MEQ TAB (MICRO K) PO SCH (06:36)
[2019-05-11] MEDS: LOSARTAN 100 MG (COZAAR) TABLET PO SCH (09:19)
[2019-05-11] MEDS: amLODIPine 5 MG (NORVASC) TAB PO SCH (09:19)
[2019-05-11] MEDS: PANTOPRAZOLE 40 MG (PROTONIX) TAB PO SCH (09:19)
[2019-05-11] MEDS: MAGNESIUM OXIDE (MAG-OX)400 MG TAB PO SCH ×2 (09:19→20:57)
[2019-05-11] MEDS: FERROUS SULF 325 MG (IRON) TAB PO SCH (09:19)
[2019-05-11] MEDS: meTOprolol TARTRATE 25 MG (LOPRESSOR) TABLET PO SCH ×2 (09:20→20:57)
[2019-05-11] MEDS: ACETAMINOPHEN 325 MG TABLET PO SCH ×2 (09:20→20:58)
[2019-05-11] MEDS: MAGIC MOUTHWASH (ADULT) PO SCH ×16 (09:26→21:36)
[2019-05-11] MEDS: polyethylene glycoL POWDER 17 GM (MIRALAX) PACK PO SCH ×2 (10:17→21:36)
--- NOTE | 2019-05-11 10:18 | Occupational Ther Daily Note ---
OT Current Status-Daily Note Subjective Pt seen in chair, breakfast had been eaten. Pt agreeable to OT tx session, d/c's tomorrow. Pt states pain in toes/ shoulders (again, states her "typical/ normal" pain). Pt agrees to showering on this date. Mental Status/Objective Patient Orientation: Normal For Age ADL-Treatment Therapy Code Descriptions/Definitions Functional [place] Measure: 0=Not Assessed/NA 4=Minimal Assistance 1=Total Assistance 5=Supervision or Setup 2=Maximal Assistance 6=Modified [place] 3=Moderate Assistance 7=Complete IndependenceSCALE: Activities may be completed with or without assistive devices. 6-Ornksifqal-zfwvatr completes the activity by him/herself with no assistance from a helper. 5-Set-up or Clean-up Assistance-helper sets up or cleans up; patient completes activity. [place] assists only prior to or following the activity. 4-Supervision or Touching Assistance-helper provides verbal cues and/or touching/steadying and/or contact guard assistance as patient completes activity. Assistance may be provided throughout the activity or intermittently. 3-Partial/Moderate Assistance-helper does LESS THAN HALF the effort. [place] lifts, holds or supports trunk or limbs, but provides less than half the effort. 2-Substantial/Maximal Assistance-helper does MORE THAN HALF the effort. [place] lifts or holds trunk or limbs and provides more than half the effort. 3-Mfujwmmak-mcrwes does ALL the effort. Patient does none of the effort to complete the activity. Or, the assistance of 2 or more helpers is required for the patient to complete the activity. If activity was not attempted, code reason: 7-Patient Refused. 9-Not Applicable-not attempted and the patient did not perform the activity before the current illness, exacerbation or injury. 10-Not Attempted due to Environmental Limitations-(lack of equipment, weather restraints, etc.). 88-Not Attempted due to Medical Conditions or Safety Concerns. Eating (QC): 5 (s/u) Oral Hygiene (QC): 4 (completes with SUP) Bathing Location: L Arm, R Arm, L Upper Leg, R Upper Leg, L Lower Leg (including foot), Chest, Abdomen, Perineal Area Shower/Bathe Self (QC): 3 (min A for BLE/ feet and bottom for thoroughness. ) Upper Body Dressing (QC): 6 Lower Body Dressing (QC): 4 (SBA ) On/Off Footwear: 6 (IND- increased time.) Toileting Hygiene (QC): 4 (SUP) Toilet Transfer (QC): 4 (SUP) Other Treatment Pt c/o pain in mouth- nursing notified of mouth wash desired. Pt agrees to showering, completes toileting/ shower transfer with SUP. Pt requires min A during shower for feet/ bottom thoroughness. Pt changes in shower, (requires min A to dry thoroughly). Pt completes oral hygiene/ hair hygiene and requests toilet once more. pt utilizes toilet and returns to recliner. Pt denies questions and states readiness for d/c. Pt and OT discuss home safety/ home environment and support at home- pt will continue to receive assist with showering/ dressing throughout the week, will complete dressing on own on weekends. Nursing present, all needs met, call light within reach. Pt educated on PT arrival post-OT. Education OT Patient Education: Correct positioning, Exercise program, Home exercise program, Modified ADL techniques, Purpose of tx/functional activities, Safety issues Teaching Recipient: Patient Teaching Methods: Demonstration, Discussion Response to Teaching: Verbalize Understanding, Return Demonstration OT Short Term Goals Short Term Goals Upper body dressin Lower body dressin OT Residential Goals Drop Hammer Set Up Operator Goals Time Frame: May 19, 2019 Eating (QC): 6 Oral Hygiene (QC): 6 Toileting Hygiene (QC): 6 Shower/Bathe Self (QC): 6 Upper Body Dressing (QC): 6 (met) Lower Body Dressing (QC): 6 On/Off Footwear (QC): 6 (met) Additional Goals: 1-Demonstrate ADL Tasks, 2-Verbalize Understanding, 3-Improve Strength/Oliverio 1=Demonstrate adherence to instructed precautions during ADL tasks. 2=Patient will verbalize/demonstrate understanding of assistive devices/modifications for ADL. 3=Patient will improve strength/tolerance for activity to enable patient to pe rform ADL's. OT Education/Plan Problem List/Assessment Assessment: Decreased Activ Tolerance, Decreased UE Strength, Impaired I ADL's, Impaired Self-Care Skills Discharge Recommendations Plan/Recommendations: Continue POC Therapy Discharge Recommendati: Scheduled Assistance, Home & Family Equpiment Recommendations-D/C: Template Worker Treatment Plan/Plan of Care Treatment,Training & Education: Yes Patient would benefit from OT for education, treatment and training to promote independence in ADL's, mobility, safety and/or upper extremity function for ADL's. Plan of Care: ADL Retraining, Caregiver Training, Functional Mobility, Group Exercise/Act as Ind, UE Funct Exercise/Act Treatment Duration: May 19, 2019 Frequency: At least 5 of 7 days/Wk (IRF) Estimated Hrs Per Day: 1.5 hours per day Agreement: Yes Rehab Potential: Fair Time/GCodes Start Time: 09:00 Stop Time: 10:15 Total Time Billed (hr/min): 75 Billed Treatment Time 1, ADL 5 (75) YULIA SULLIVAN OTR May 11, 2019 10:18
--- NOTE | 2019-05-11 11:02 | Physical Therapy Daily Note ---
PT Daily Note-Current Subjective Pt sitting in recliner upon arrival. Pt agrees to PT. Pain Location: No Pain Reported Mental Status Patient Orientation: Person, Place, Situation Transfers SCALE: Activities may be completed with or without assistive devices. 5-Ybmldtzpms-pmxlinz completes the activity by him/herself with no assistance from a helper. 5-Set-up or Clean-up Assistance-helper sets up or cleans up; patient completes activity. [place] assists only prior to or following the activity. 4-Supervision or Touching Assistance-helper provides verbal cues and/or touching/steadying and/or contact guard assistance as patient completes activity. Assistance may be provided throughout the activity or intermittently. 3-Partial/Moderate Assistance-helper does LESS THAN HALF the effort. [place] lifts, holds or supports trunk or limbs, but provides less than half the effort. 2-Substantial/Maximal Assistance-helper does MORE THAN HALF the effort. [place] lifts or holds trunk or limbs and provides more than half the effort. 4-Wgqnbwmcb-benpoi does ALL the effort. Patient does none of the effort to complete the activity. Or, the assistance of 2 or more helpers is required for the patient to complete the activity. If activity was not attempted, code reason: 7-Patient Refused. 9-Not Applicable-not attempted and the patient did not perform the activity before the current illness, exacerbation or injury. 10-Not Attempted due to Environmental Limitations-(lack of equipment, weather restraints, etc.). 88-Not Attempted due to Medical Conditions or Safety Concerns. Roll Left & Right (QC): 6 Sit to Lying (QC): 6 Lying to Sitting/Side of Bed(Q: 6 Sit to Stand (QC): 6 Chair/Agw-jc-Gldmn Xfer(QC): 6 Toilet Transfer (QC): 6 Car Transfer (QC): 6 Weight Bearing Right Lower Extremity: Right Full Weight Bearing Left Lower Extremity: Left Full Weight Bearing Gait Training Does the Patient Walk?: Yes Distance: 150' x2 Walk 10 feet (QC): 6 Walk 50 ft with 2 Turns(QC): 6 Walk 150 ft (QC): 6 Walking 10ft/uneven surface-QC: 6 Gait Persons Needed: 1 Gait Assistive Device: FWW Wheelchair Training Does the Pt Use a Wheelchair?: No Stair Training Stair Training: Handrails/: 2 handrails #of Steps: 4 1 Step (curb) (QC): 6 4 Steps (QC): 6 12 Steps (QC): 9 Stairs: Pattern: Step to Balance Picking up an Object (QC): 88 Special Test Comments This is not attempted due to pt reports light-headed when bending over. Pt will have national sales director at home to use instead. Treatments Pt completes QC scoring items listed above before returning to recliner to rest at end of Rx. Pt has all needs met, call light in hand. Assessment Current Status: Good Progress Pt moves with slow yudi but capable of completing tasks when given extra time. Pt reports having HH to assist at home and will restart after D/C. PT Machine Presser Goals Machine Presser Goals PT Snf Goals Time Frame: Jun 03, 2019 Roll Left & Right (QC): 6 Sit to Lying (QC): 6 Lying-Sitting on Side/Bed(QC): 6 Sit to Stand (QC): 5 Chair/Vzu-fv-Ojhps Xfer(QC): 5 Toilet Transfer (QC): 5 Car Transfer (QC): 5 Does the Patient Walk: Yes Walk 10 feet (QC): 5 Walk 50ft with 2 Turns (QC): 5 Walk 150 ft (QC): 5 Walking 10ft on Uneven Surface: 5 1 Step (curb) (QC): 5 4 Steps (QC): 9 12 Steps (QC): 9 Picking up an Object (QC): 5 PT Plan Problem List Problem List: Activity Tolerance Treatment/Plan Treatment Plan: Continue Plan of Care Treatment Plan: Bed Mobility, Concurrent Therapy, Education, Functional Activity Oliverio, Functional Strength, Group Therapy, Gait, Safety, Therapeutic Exercise, Transfers Treatment Duration: Jun 03, 2019 Frequency: At least 5 of 7 days/Wk (IRF) Estimated Hrs Per Day: 1.5 hours per day Patient and/or Family Agrees t: Yes Safety Risks/Education Patient Education: Gait Training, Transfer Techniques, Correct Positioning, Safety Issues Teaching Recipient: Patient Teaching Methods: Discussion Response to Teaching: Verbalize Understanding Time/GCodes Time In: 1015 Time Out: 1100 Total Billed Treatment Time: 45 Total Billed Treatment 1, GT (20m) & FA x2 (25m) LIAM RUBI FAMILY LAW SPECIALIST May 11, 2019 11:02
[2019-05-11] MEDS: NAPROXEN 250 MG (NAPROSYN) TABLET PO SCH (11:48)
--- NOTE | 2019-05-11 11:48 | PM&R Progress Note ---
Subjective HPI/CC On Admission Date Seen by Provider: May 11, 2019 Time Seen by Provider: 10:30 Subjective/Events-last exam Pt doing pretty well Ready for DC tomorrow Overall feels likes she is prepared for home Doing very well Checked meds and labs Reviewed therapy notes Conferred with dolly pusher of Systems General: Fatigue Neurological: Weakness, Incoordination Objective Exam Vital Signs Vital Signs Date Time Temp Pulse Resp B/P (MAP) Pulse Ox O2 Delivery O2 Flow Rate FiO2 05/11/19 18:00 36.6 73 20 149/72 (97) 93 Room Air Capillary Refill : Less Than 3 Seconds General Appearance: No Apparent Distress, WD/WN, Chronically ill, Thin HEENT: PERRL/EOMI, Pharynx Normal Neck: Full Range of Motion, Non Tender, Supple Respiratory: Chest Non Tender, Lungs Clear, Normal Breath Sounds, No Respiratory Distress Cardiovascular: Regular Rate, Rhythm, No Edema, Normal Peripheral Pulses Gastrointestinal: Normal Bowel Sounds, Non Tender, Soft Rectal: Deferred Back: Normal Inspection, No Vertebral Tenderness Extremity: Normal Capillary Refill, Non Tender, No Calf Tenderness, Pedal Edema (TRACE), Other (ECCHYMOSIS ON ARMS) Neurologic/Psychiatric: Alert, Oriented x3, Normal Mood/Affect, 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 FIM Transfers Therapy Code Descriptions/Definitions Functional [place] Measure: 0=Not Assessed/NA 4=Minimal Assistance 1=Total Assistance 5=Supervision or Setup 2=Maximal Assistance 6=Modified [place] 3=Moderate Assistance 7=Complete IndependenceSCALE: Activities may be completed with or without assistive devices. 1-Glmkakopjw-iifzwua completes the activity by him/herself with no assistance from a helper. 5-Set-up or Clean-up Assistance-helper sets up or cleans up; patient completes activity. [place] assists only prior to or following the activity. 4-Supervision or Touching Assistance-helper provides verbal cues and/or touching/steadying and/or contact guard assistance as patient completes activity. Assistance may be provided throughout the activity or intermittently. 3-Partial/Moderate Assistance-helper does LESS THAN HALF the effort. [place] lifts, holds or supports trunk or limbs, but provides less than half the effort. 2-Substantial/Maximal Assistance-helper does MORE THAN HALF the effort. [place] lifts or holds trunk or limbs and provides more than half the effort. 5-Xtetykmvo-hhzjgi does ALL the effort. Patient does none of the effort to complete the activity. Or, the assistance of 2 or more helpers is required for the patient to complete the activity. If activity was not attempted, code reason: 7-Patient Refused. 9-Not Applicable-not attempted and the patient did not perform the activity before the current illness, exacerbation or injury. 10-Not Attempted due to Environmental Limitations-(lack of equipment, weather restraints, etc.). 88-Not Attempted due to Medical Conditions or Safety Concerns. Roll Left to Right (QC): 6 Sit to Lying (QC): 6 Sit to Stand (QC): 6 Chair/Ihy-cg-Zskfj Xfer(QC): 6 Car Transfer (QC): 6 Gait Training Does the Patient Walk?: Yes Distance: 150' x2 Walk 10 feet (QC): 6 Walk 50 ft with 2 Turns(QC): 6 Walk 150 ft (QC): 6 Walking 10ft/uneven surface-QC: 6 Gait Persons Needed: 1 Gait Assistive Device: FWW Wheelchair Training Does the Pt Use a Wheelchair?: No Stair Training Stair Training: Handrails/: 2 handrails #of Steps: 4 1 Step (curb) (QC): 6 4 Steps (QC): 6 12 Steps (QC): 9 Stairs: Pattern: Step to Balance Picking up an Object (QC): 88 ADL-Treatment Eating (QC): 5 (s/u) Oral Hygiene (QC): 4 (completes with SUP) Bathing Location: L Arm, R Arm, L Upper Leg, R Upper Leg, L Lower Leg (including foot), Chest, Abdomen, Perineal Area Shower/Bathe Self (QC): 3 (min A for BLE/ feet and bottom for thoroughness. ) Upper Body Dressing (QC): 6 Lower Body Dressing (QC): 4 (SBA ) On/Off Footwear (QC): 6 (IND- increased time.) Toileting Hygiene (QC): 4 (SUP) Toilet Transfer (QC): 4 (SUP) Assessment/Plan Assessment and Plan Assess & Plan/Chief Complaint Assessment: Debility Encephalopathy Frail status Anemia chronic Falls Neuropathy Polypharmacy plan: Minimize meds IRF PT OT Bed alarm Requests new med for subtle symptoms frequently so will minimize new and more meds DC home tomorrow (1) Encephalopathy Assessment & Plan: IMPROVED - CONTINUE WITH SUPPORTIVE CARE, ADJUST MEDICATIONS NEEDED. (2) Frailty Assessment & Plan: SHOULD IMPROVE WITH THERAPY (3) Neuropathy Assessment & Plan: CHRONIC - SHE IS ON GABAPENTIN - WILL DECREASE DOSE FROM 200MG TO 100MG, MONITOR RESPONSE (4) Polypharmacy Assessment & Plan: APPROPRIATE POLYPHARMACY DUE TO SEVERE HYPERTENSION WITH DIFFICULT TO CONTROL BLOOD PRESSURE REQUIRING MULTIPLE AGENTS FOR LOWERING OF BLOOD PRESSURE. (5) Falls Qualifiers: Encounter type: subsequent encounter Qualified Codes: W19.XXXD - Unspecified fall, subsequent encounter (6) Cerebrovascular disease Assessment & Plan: SUPPORTIVE CARE, BLOOD PRESSURE CONTROL (7) Hypertension Qualifiers: Hypertension type: essential hypertension Qualified Codes: I10 - Essential (primary) hypertension CAIT RAMIREZ DO May 11, 2019 11:48
--- NOTE | 2019-05-11 11:59 | Speech Therapy Daily Note ---
Speech Daily Progress Note Subjective Date Seen by Provider: May 11, 2019 Time Seen by Provider: 11:00 Patient was alert, content, and cooperative for all therapy tasks. Patient reported that her teeth are still bothering her, however it is improving. Patient sat upright in her chair for the duration of treatment and noted that she feels like she has made good progress in therapy. Objective Patient tolerates least restrictive diet with no s/s of aspiration at 90% and minimal cues. Assessment Assessment Current Status: Good Progress Treatment Plan Discontinue ST Speech Short Term Goals Short Term Goals Short Term Goals 1. Patient will complete memory tasks at 80% accuracy with minimal cues. 2. Patient will complete problem-solving tasks at 80% accuracy with minimal cues. 3. Patient will complete safety awareness tasks at 80% accuracy with minimal cues. 4. Patient will complete speech production tasks at 80% accuracy with minimal cues. 5. Patient will tolerate least restrictive diet without s/s of aspiration at 90%. 6. Patient will utilize compensatory strategies as trained at 90% with minimal cues. Speech Assisted Goals Assisted Goals 1. Patient will improve cognitive-communication necessary for safety and daily living tasks with minimal assist. 2. Patient will maintain adequate nutrition/hydration via safe and effective swallow function. Speech-Plan Patient/Family Goals Patient/Family Goals: Patient reported that she wishes to return home to prior level of independence. Treatment Plan Speech Therapy Treatment Plan: Discontinue ST Treatment Duration: May 12, 2019 Frequency: 4 times per week (4 to 5 times) Estimated Hrs Per Day: .5 hour per day Rehab Potential: Fair Barriers to Learning: Mild cognitive deficits Pt/Family Agrees to Plan: Yes Safety Risks/Education Teaching Recipient: Patient Teaching Methods: Demonstration, Discussion Response to Teaching: Verbalize Understanding Education Topics Provided: Continued utilization of compensatory strategies during all oral intake Time Speech Therapy Time In: 11:00 Speech Therapy Time Out: 11:30 Total Billed Time: 30 Billed Treatment Time 1VITALIY [address] ST May 11, 2019 11:59
--- NOTE | 2019-05-11 14:11 | NUR ---
CM/SS DISCHARGE PLANNING IMM2 presented to patient, signed, charted. She will discharge home tomorrow as planned, health technical writer has confirmed with her daughter Britni that pickling grader time late afternoon is approved. Will resume finalization of all discharge referrals once orders received.
--- NOTE | 2019-05-11 15:36 | D/C HH Face to Face Order ---
D/C Face to Face Orders Reconcile Patient Problems Problems Reviewed?: Yes Instructions for Patient Via [facility], Patient Instructions/FollowUp: Dr Tinsley 1 week Physician to follow Patient: Alvina Discharge Diet for Home: Soft Diet Patient Problems: Debility Metabolic encephalopathy Goals for Patient: [place] Patient Data-Allergies,Ht & Wt Patient Allergies: Coded Allergies: tetracycline (Verified Allergy, Mild, 05/04/19) rash Height (Feet): 4 Height (Inches): 10.00 Weight (Pounds): 120 Weight (Ounces): 4.0 Home Health Need/Face to Face Date of Face to Face: May 11, 2019 Clinical Findings: Generalized weakness and fatigue, Muscle weakness, Unsteady gait I have seen Pt sqmz-vu-hvxb: Yes Discharged To: Home Diagnosis/Conditions: Debility Metabolic encephalopathy Patient is Homebound due to: CognItive deficits, Neel fall risk due to instabilty, Muscle weakness Homebound Status Due to the above stated illness, injury or surgical procedure (medical condition or diagnosis) and associated clinical findings, the patient is homebound because of his/her inability to leave home except with aid of a supportive device and/or person AND leaving the home requires a considerable and taxing effort or is medically contraindicated. Pt req the following assistanc: Walker Home Health Nursing Orders Home Health Services Order: Nursing Services (biweekly injections as ordered previously by PCP), Filler Shredder Helper-Evaluate & Treat, Physical Therapy-E valuate & Treat Certify Stmt I certify that this patient is under my care and that I, a nurse practitioner or a physician; a assistant professor of spanish working with me, had a face to face encounter that - meets the physician face to face encounter requirements with this patient as dated. CAIT RAMIREZ DO May 11, 2019 15:36
--- NOTE | 2019-05-11 15:39 | Physical Therapy Daily Note ---
PT Daily Note-Current Subjective Pt in restroom upon arrival. Pt agrees to PT. Pain Location: No Pain Reported Mental Status Patient Orientation: Person, Place, Situation Transfers SCALE: Activities may be completed with or without assistive devices. 9-Pdoqsgcrvh-uauoets completes the activity by him/herself with no assistance from a helper. 5-Set-up or Clean-up Assistance-helper sets up or cleans up; patient completes activity. [place] assists only prior to or following the activity. 4-Supervision or Touching Assistance-helper provides verbal cues and/or touching/steadying and/or contact guard assistance as patient completes activity. Assistance may be provided throughout the activity or intermittently. 3-Partial/Moderate Assistance-helper does LESS THAN HALF the effort. [place] lifts, holds or supports trunk or limbs, but provides less than half the effort. 2-Substantial/Maximal Assistance-helper does MORE THAN HALF the effort. [place] lifts or holds trunk or limbs and provides more than half the effort. 2-Ofhakiadh-nwlzji does ALL the effort. Patient does none of the effort to complete the activity. Or, the assistance of 2 or more helpers is required for the patient to complete the activity. If activity was not attempted, code reason: 7-Patient Refused. 9-Not Applicable-not attempted and the patient did not perform the activity before the current illness, exacerbation or injury. 10-Not Attempted due to Environmental Limitations-(lack of equipment, weather restraints, etc.). 88-Not Attempted due to Medical Conditions or Safety Concerns. Sit to Stand (QC): 6 Toilet Transfer (QC): 6 Weight Bearing Right Lower Extremity: Right Full Weight Bearing Left Lower Extremity: Left Full Weight Bearing Gait Training Does the Patient Walk?: Yes Distance: 150' Walk 10 feet (QC): 6 Walk 50 ft with 2 Turns(QC): 6 Walk 150 ft (QC): 6 Gait Persons Needed: 1 Gait Assistive Device: FWW Pt given VC to walk w/in FWW for better posture and safety. Wheelchair Training Does the Pt Use a Wheelchair?: No Treatments After finishing using restroom, pt ambulates in hallway. Pt returns to room due to fatigue and rests in recliner. 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 Pt resting in recliner at end of Rx with all needs met, call light in hand. Assessment Current Status: Good Progress Pt reports fatigued at end of Rx. PT Photo Mask Processor Goals Shelter Goals PT Shelter Goals Time Frame: Jun 03, 2019 Roll Left & Right (QC): 6 Sit to Lying (QC): 6 Lying-Sitting on Side/Bed(QC): 6 Sit to Stand (QC): 5 Chair/Zwp-vn-Vayzf Xfer(QC): 5 Toilet Transfer (QC): 5 Car Transfer (QC): 5 Does the Patient Walk: Yes Walk 10 feet (QC): 5 Walk 50ft with 2 Turns (QC): 5 Walk 150 ft (QC): 5 Walking 10ft on Uneven Surface: 5 1 Step (curb) (QC): 5 4 Steps (QC): 9 12 Steps (QC): 9 Picking up an Object (QC): 5 PT Plan Problem List Problem List: Activity Tolerance, Functional Strength Treatment/Plan Treatment Plan: Continue Plan of Care Treatment Plan: Bed Mobility, Concurrent Therapy, Education, Functional Activity Oliver[place], Functional Strength, Group Therapy, Gait, Safety, Therapeutic Exercise, Transfers Treatment Duration: Jun 03, 2019 Frequency: At least 5 of 7 days/Wk (IRF) Estimated Hrs Per Day: 1.5 hours per day Patient and/or Family Agrees t: Yes Safety Risks/Education Patient Education: Gait Training, Issued Written HEP, Correct Positioning, Safety Issues Teaching Recipient: Patient Teaching Methods: Discussion Response to Teaching: Verbalize Understanding Time/GCodes Time In: 1400 Time Out: 1430 Total Billed Treatment Time: 30 Total Billed Treatment 1, FA (15m) & EX (15m) LIAM RUBI PTA May 11, 2019 15:39
[2019-05-11] MEDS: GABAPENTIN 100 MG (NEURONTIN) CAP PO SCH (17:11)
[2019-05-11] MEDS: ENOXAPARIN 40 MG/0.4 ML (LOVENOX) SYR SC SCH (17:12)
--- NOTE | 2019-05-11 17:36 | NUR ---
Pt states that she, "thinks she has a yeast infection." I get that sometimes after I've taken antibiotics." C/o itching & burning. Pt states that the Dr usually gives her a pill for it that she takes for 5 days." [address] Ledezma, who reported to notify Dr. Tinsley, pt's PCP, Dr. Tinsley ordered Diflucan 150mg po x 5 days.
[2019-05-11] MEDS ORDERED: fluCOnazole (DIFLUCAN) 100 MG TAB PO ONE (17:45)
[2019-05-11 18:00] VITALS: BP 149/72
[2019-05-11] MEDS ORDERED: fluCOnazole (DIFLUCAN) 100 MG TAB ONE (20:49)
[2019-05-11] MEDS: ALPRAZolam 0.25 MG (XANAX) TAB PO SCH (20:57)
[2019-05-11] MEDS: MONTELUKAST 10 MG (SINGULAIR) TAB PO SCH (20:57)
[2019-05-11] MEDS: DULoxetine 30 MG (CYMBALTA) CAP PO SCH (20:57)
[2019-05-11] MEDS: guaiFENesin (MUCINEX) 600 MG TAB PO PRN (21:03)
[2019-05-12 06:01] VITALS: BP 155/72
[2019-05-12] MEDS: KCL 10 MEQ TAB (MICRO K) PO SCH (06:32)
[2019-05-12] MEDS ORDERED: fluCOnazole (DIFLUCAN) 100 MG TAB PO SCH (09:00)
[2019-05-12] MEDS: PANTOPRAZOLE 40 MG (PROTONIX) TAB PO SCH (09:07)
[2019-05-12] MEDS: MAGNESIUM OXIDE (MAG-OX)400 MG TAB PO SCH (09:07)
[2019-05-12] MEDS: LOSARTAN 100 MG (COZAAR) TABLET PO SCH (09:07)
[2019-05-12] MEDS: FERROUS SULF 325 MG (IRON) TAB PO SCH (09:07)
[2019-05-12] MEDS: amLODIPine 5 MG (NORVASC) TAB PO SCH (09:07)
[2019-05-12] MEDS: meTOprolol TARTRATE 25 MG (LOPRESSOR) TABLET PO SCH (09:07)
[2019-05-12] MEDS: ACETAMINOPHEN 325 MG TABLET PO SCH (09:08)
[2019-05-12] MEDS: MAGIC MOUTHWASH (ADULT) PO SCH ×12 (09:14→17:01)
[2019-05-12] MEDS: polyethylene glycoL POWDER 17 GM (MIRALAX) PACK PO SCH (09:18)
[2019-05-12] MEDS: NAPROXEN 250 MG (NAPROSYN) TABLET PO SCH (11:33)
--- NOTE | 2019-05-12 12:08 | Discharge Summary ---
Diagnosis/Chief Complaint Date of Admission May 04, 2019 at 15:15 Date of Discharge Discharge Date: May 12, 2019 Discharge Diagnosis Assessment: Debility Encephalopathy Frail status Anemia chronic Falls Neuropathy Polypharmacy plan: Minimize meds IRF PT OT Bed alarm Requests new med for subtle symptoms frequently so will minimize new and more meds DC home tomorrow (1) Encephalopathy Assessment & Plan: IMPROVED - CONTINUE WITH SUPPORTIVE CARE, ADJUST MEDICATIONS NEEDED. (2) Frailty Assessment & Plan: SHOULD IMPROVE WITH THERAPY (3) Neuropathy Assessment & Plan: CHRONIC - SHE IS ON GABAPENTIN - WILL DECREASE DOSE FROM 200MG TO 100MG, MONITOR RESPONSE (4) Polypharmacy Assessment & Plan: APPROPRIATE POLYPHARMACY DUE TO SEVERE HYPERTENSION WITH DIFFICULT TO CONTROL BLOOD PRESSURE REQUIRING MULTIPLE AGENTS FOR LOWERING OF BLOOD PRESSURE. (5) Falls Qualifiers: Encounter type: subsequent encounter Qualified Codes: W19.XXXD - U nspecified fall, subsequent encounter (6) Cerebrovascular disease Assessment & Plan: SUPPORTIVE CARE, BLOOD PRESSURE CONTROL (7) Hypertension Qualifiers: Hypertension type: essential hypertension Qualified Codes: I10 - Essential (primary) hypertension Discharge Summary Discharge Physical Examination Allergies: Coded Allergies: tetracycline (Verified Allergy, Mild, 05/04/19) rash Vitals & I&Os Vital Signs Date Time Temp Pulse Resp B/P (MAP) Pulse Ox O2 Delivery O2 Flow Rate FiO2 05/12/19 08:42 Room Air 05/12/19 06:01 37.0 74 18 155/72 (99) 95 General Appearance: Alert, Oriented X3, Cooperative Respiratory: Clear to Auscultation Cardiovascular: Regular Rate Neuro: Normal Gait, Normal Speech, Strength at 5/5 X4 Ext Psych/Mental Status: Mental Status NL Hospital Course Was the Problem List Reviewed?: Yes Hospital course: Patient had an uneventful hospital course for 9 days after being admitted for metabolic encephalopathy. Polypharmacy was addressed by primary care provider. Multiple meds were minimized. No pain was reported other than her usual feet and toe pain. She did have Magic mouthwash ordered for mouth tongue sore. Patient's bowels returned back to normal with laxatives. No falls occurred and she was able to participate in all therapy. Labs (last 24 hrs) Laboratory Tests 05/05/19 05:10: White Blood Count 10.3, Red Blood Count 3.43L, Hemoglobin 10.1L, Hematocrit 32L, Mean Corpuscular Volume 92, Mean Corpuscular Hemoglobin 29, Mean Corpuscular Hemoglobin Concent 32, Red Cell Distribution Width 12.9, Platelet Count 247, Mean Platelet Volume 9.3, Neutrophils (%) (Auto) 72, Lymphocytes (%) (Auto) 17, Monocytes (%) (Auto) 9, Eosinophils (%) (Auto) 2, Basophils (%) (Auto) 0, Neutrophils # (Auto) 7.4, Lymphocytes # (Auto) 1.7, Monocytes # (Auto) 0.9, Eosinophils # (Auto) 0.2, Basophils # (Auto) 0.0, Sodium Level 140, Potassium Level 4.4, Chloride Level 102, Carbon Dioxide Level 27, Anion Gap 11, Blood Urea Nitrogen 30H, Creatinine 0.91, Estimat Glomerular Filtration Rate 60, BUN/Creatinine Ratio 33, Glucose Level 105, Calcium Level 10.2H, Corrected Calcium 10.5H, Total Bilirubin 0.4, Aspartate Amino Transf (AST/SGOT) 35H, Ala nine Aminotransferase (ALT/SGPT) 28, Alkaline Phosphatase 41, Total Protein 6.1L , Albumin 3.6 05/06/19 05:31: White Blood Count 10.4, Red Blood Count 3.46L, Hemoglobin 10.0L, Hematocrit 32L, Mean Corpuscular Volume 93, Mean Corpuscular Hemoglobin 29, Mean Corpuscular Hemoglobin Concent 31L, Red Cell Distribution Width 13.1, Platelet Count 244, Mean Platelet Volume 9.9, Sodium Level 139, Potassium Level 4.2, Chloride Level 101, Carbon Dioxide Level 24, Anion Gap 14, Blood Urea Nitrogen 27H, Creatinine 0.84, Estimat Glomerular Filtration Rate > 60, BUN/Creatinine Ratio 32, Glucose Level 95, Calcium Level 9.5, Corrected Calcium 9.8, Total Bilirubin 0.5, Aspartate Amino Transf (AST/SGOT) 31, Alanine Aminotransferase (ALT/SGPT) 26, Alkaline Phosphatase 45, Total Protein 6.3L, Albumin 3.6 05/08/19 05:30: White Blood Count 8.6, Red Blood Count 3.48L, Hemoglobin 10.3L, Hematocrit 33L, Mean Corpuscular Volume 93, Mean Corpuscular Hemoglobin 30, Mean Corpuscular Hemoglobin Concent 32, Red Cell Distribution Width 13.1, Platelet Count 259, Mean Platelet Volume 9.3, Neutrophils (%) (Auto) 62, Lymphocytes (%) (Auto) 25, Monocytes (%) (Auto) 9, Eosinophils (%) (Auto) 3, Basophils (%) (Auto) 1, Neutrophils # (Auto) 5.4, Lymphocytes # (Auto) 2.2, Monocytes # (Auto) 0.8, Eosinophils # (Auto) 0.3, Basophils # (Auto) 0.1, Sodium Level 139, Potassium Level 4.3, Chloride Level 102, Carbon Dioxide Level 27, Anion Gap 10, Blood Urea Nitrogen 28H, Creatinine 0.92, Estimat Glomerular Filtration Rate 59, BUN/Creatinine Ratio 30, Glucose Level 95, Calcium Level 9.2, Corrected Calcium 9.6, Total Bilirubin 0.3, Aspartate Amino Transf (AST/SGOT) 16, Alanine Aminotransferase (ALT/SGPT) 22, Alkaline Phosphatase 45, Total Protein 6.0L, Albumin 3.5 Pending Labs Laboratory Tests 05/05/19 05:10: White Blood Count 10.3, Red Blood Count 3.43, Hemoglobin 10.1, Hematocrit 32, Mean Corpuscular Volume 92, Mean Corpuscular Hemoglobin 29, Mean Corpuscular Hemoglobin Concent 32, Red Cell Distribution Width 12.9, Platelet Count 247, Mean Platelet Volume 9.3, Neutrophils (%) (Auto) 72, Lymphocytes (%) (Auto) 17, Monocytes (%) (Auto) 9, Eosinophils (%) (Auto) 2, Basophils (%) (Auto) 0, Neutrophils # (Auto) 7.4, Lymphocytes # (Auto) 1.7, Monocytes # (Auto) 0.9, Eosinophils # (Auto) 0.2, Basophils # (Auto) 0.0, Sodium Level 140, Potassium Level 4.4, Chloride Level 102, Carbon Dioxide Level 27, Anion Gap 11, Blood Urea Nitrogen 30, Creatinine 0.91, Estimat Glomerular Filtration Rate 60, BUN/Creatinine Ratio 33, Glucose Level 105, Calcium Level 10.2, Corrected Calcium 10.5, Total Bilirubin 0.4, Aspartate Amino Transf (AST/SGOT) 35, Alanine Aminotransferase (ALT/SGPT) 28, Alkaline Phosphatase 41, Total Protein 6.1, Albumin 3.6 05/06/19 05:31: White Blood Count 10.4, Red Blood Count 3.46, Hemoglobin 10.0, Hematocrit 32, Mean Corpuscular Volume 93, Mean Corpuscular Hemoglobin 29, Mean Corpuscular Hemoglobin Concent 31, Red Cell Distribution Width 13.1, Platelet Count 244, Mean Platelet Volume 9.9, Sodium Level 139, Potassium Level 4.2, Chloride Level 101, Carbon Dioxide Level 24, Anion Gap 14, Blood Urea Nitrogen 27, Creatinine 0.84, Estimat Glomerular Filtration Rate > 60, BUN/Creatinine Ratio 32, Glucose Level 95, Calcium Level 9.5, Corrected Calcium 9.8, Total Bilirubin 0.5, Aspartate Amino Transf (AST/SGOT) 31, Alanine Aminotransferase (ALT/SGPT) 26, Alkaline Phosphatase 45, Total Protein 6.3, Albumin 3.6 05/08/19 05:30: White Blood Count 8.6, Red Blood Count 3.48, Hemoglobin 10.3, Hematocrit 33, Mean Corpuscular Volume 93, Mean Corpuscular Hemoglobin 30, Mean Corpuscular He moglobin Concent 32, Red Cell Distribution Width 13.1, Platelet Count 259, Mean Platelet Volume 9.3, Neutrophils (%) (Auto) 62, Lymphocytes (%) (Auto) 25, Monocytes (%) (Auto) 9, Eosinophils (%) (Auto) 3, Basophils (%) (Auto) 1, Neutrophils # (Auto) 5.4, Lymphocytes # (Auto) 2.2, Monocytes # (Auto) 0.8, Eosinophils # (Auto) 0.3, Basophils # (Auto) 0.1, Sodium Level 139, Potassium L evel 4.3, Chloride Level 102, Carbon Dioxide Level 27, Anion Gap 10, Blood Urea Nitrogen 28, Creatinine 0.92, Estimat Glomerular Filtration Rate 59, BUN/Creatinine Ratio 30, Glucose Level 95, Calcium Level 9.2, Corrected Calcium 9.6, Total Bilirubin 0.3, Aspartate Amino Transf (AST/SGOT) 16, Alanine Aminotransferase (ALT/SGPT) 22, Alkaline Phosphatase 45, Total Protein 6.0, Albumin 3.5 Discharge Home Medications: Active Scripts Active Reported Aleve (Naproxen Sodium) 220 Mg Tablet 220 Mg PO DAILY@1200 PRN Iron (Ferrous Sulfate) 325 Mg Tablet 325 Mg PO DAILY Magox 400 (Magnesium Oxide) 400 Mg Tablet 400 Mg PO BID Montelukast Sodium 10 Mg Tablet 10 Mg PO HS Metoprolol Tartrate 25 Mg Tablet 12.5 Mg PO BID TAKE 1/2 OF 25 MG TAB Potassium Chloride 10 Meq Tab.er.prt 10 Meq PO DAILY Gabapentin 100 Mg Capsule 200 Mg PO DAILY@1600 TAKES 2 100 MG CAPS Losartan Potassium 100 Mg Tablet 100 Mg PO DAILY Alprazolam 0.25 Mg Tablet 0.25 Mg PO DAILY PRN Duloxetine HCl 30 Mg Capsule.dr 30 Mg PO HS Protonix (Pantoprazole Sodium) 40 Mg Tablet.dr 40 Mg PO DAILY Tylenol Arthritis (Acetaminophen) 650 Mg Tablet.er 650 Mg PO BID Alprazolam 0.25 Mg Tablet 0.25 Mg PO HS Amlodipine Besylate 5 Mg Tablet 5 Mg PO DAILY Instructions to patient/family Please see electronic discharge instructions given to patient. Diagnosis/Problems Diagnosis/Problems (1) Encephalopathy Assessment & Plan: IMPROVED - CONTINUE WITH SUPPORTIVE CARE, ADJUST MEDICATIONS NEEDED. (2) Frailty Assessment & Plan: SHOULD IMPROVE WITH THERAPY (3) Neuropathy Assessment & Plan: CHRONIC - SHE IS ON GABAPENTIN - WILL DECREASE DOSE FROM 200MG TO 100MG, MONITOR RESPONSE (4) Polypharmacy Assessment & Plan: APPROPRIATE POLYPHARMACY DUE TO SEVERE HYPERTENSION WITH DIFFICULT TO CONTROL BLOOD PRESSURE REQUIRING MULTIPLE AGENTS FOR LOWERING OF BLOOD PRESSURE. (5) Falls Qualifiers: Qualified Codes: W19.XXXD - Unspecified fall, subsequent encounter (6) Cerebrovascular disease Assessment & Plan: SUPPORTIVE CARE, BLOOD PRESSURE CONTROL (7) Hypertension Qualifiers: Qualified Codes: I10 - Essential (primary) hypertension Clinical Quality Measures DVT/VTE Risk/Contraindication: Risk Factor Score Per Nursin RFS Level Per Nursing on Admit: 4+=Very High CAIT RAMIREZ DO May 12, 2019 12:08
--- NOTE | 2019-05-12 15:50 | NUR ---
CM/SS DISCHARGE Confirmed [facility] is prepared to resume services tomorrow. Daughter coming later as planned. Daughter will explore a administrative resident weight city collector with patient, a private pay item. Unit RN aware of all plans.
[2019-05-12] MEDS: GABAPENTIN 100 MG (NEURONTIN) CAP PO SCH (16:41)
[2019-05-12] MEDS: ACETAMINOPHEN 325 MG TABLET PO PRN (16:51)
[2019-05-12] MEDS: ENOXAPARIN 40 MG/0.4 ML (LOVENOX) SYR SC SCH (16:52)
[2019-05-12 17:00] VITALS: BP 155/72
--- NOTE | 2019-05-15 10:36 | Therapy Team Discharge Summary ---
Therapy Discharge Summary Discharge Recommendations Date of Discharge May 12, 2019 at 17:00 Occupational Therapy Decreased Activ Tolerance, Decreased UE Strength, Impaired I ADL's, Impaired Self-Care Skills Speech-Language Pathology Patient was admitted to the ARU due to debility. Patient scored within the MNCD range of function on the SLUMS. Patient made progress on ST goals for dysphagia and cognitive function. Patient discharged to home on 05/12/19. Patient also discharged from skilled ST at that time. PT Test Administrator Goals Care Home Goals PT Test Administrator Goals Time Frame: Jun 03, 2019 Roll Left to Right (QC): 6 Sit to Lying (QC): 6 Lying-Sitting on Side/Bed(QC): 6 Sit to Stand (QC): 5 Chair/Dda-uc-Rxqcb Xfer(QC): 5 Car Transfer (QC): 5 Does the Patient Walk: Yes Walk 10 feet (QC): 5 Walk 10ft-Uneven Surface(QC): 5 Walk 50ft with 2 Turns (QC): 5 Walk 150 ft (QC): 5 1 Step (curb) (QC): 5 4 Steps (QC): 9 12 Steps (QC): 9 Picking up an Object (QC): 5 OT Test Administrator Goals Test Administrator Goals Time Frame: May 19, 2019 Eating (QC): 6 Oral Hygiene (QC): 6 Shower/Bathe Self (QC): 6 Upper Body Dressing (QC): 6 (met) Lower Body Dressing (QC): 6 On/Off Footwear (QC): 6 (met) Toileting Hygiene (QC): 6 Toilet/Commode Transfer (QC): 5 Additional Goals: 1-Demonstrate ADL Tasks, 2-Verbalize Understanding, 3- ImproveStrength/Oliverio 1=Demonstrate adherence to instructed precautions during ADL tasks. 2=Patient will verbalize/demonstrate understanding of assistive devices/modif ications for ADL. 3=Patient will improve strength/tolerance for activity to enable patient to perform ADL's. Speech Test Administrator Goals Care Home Goals 1. Patient will improve cognitive-communication necessary for safety and daily living tasks with minimal assist. Met 2. Patient will maintain adequate nutrition/hydration via safe and effective swallow function. Met WILFREDO CINTRON May 15, 2019 10:36
--- NOTE | 2019-05-15 12:10 | Therapy Team Discharge Summary ---
Therapy Discharge Summary Discharge Recommendations Date of Discharge May 12, 2019 at 17:00 Occupational Therapy Pt admits to ARU with dx of acute metabolic encephalopathy. Pt admitting QC's: showering with max A, footwear max A, UB s/u, LB max A. Pt and OT work towards higher functional IND through ADL retraining, functional activities, UE and endurance training. Pt limited by pain in joints and motivation. LTG's not achieved. Pt d/c's from ARU with continued 2/7 days assist for bathing/ dressing tasks, d/cing QC's: IND footwear and UB dressing, SUP toileting, LB dressing with SBA. Pt d/c OT services at this time. Decreased Activ Tolerance, Decreased UE Strength, Impaired I ADL's, Impaired Se lf-Care Skills PT Halfway Goals Guitar Repairer Goals PT Halfway Goals Time Frame: Jun 03, 2019 Roll Left to Right (QC): 6 Sit to Lying (QC): 6 Lying-Sitting on Side/Bed(QC): 6 Sit to Stand (QC): 5 Chair/Yhs-yv-Hyrfp Xfer(QC): 5 Car Transfer (QC): 5 Does the Patient Walk: Yes Walk 10 feet (QC): 5 Walk 10ft-Uneven Surface(QC): 5 Walk 50ft with 2 Turns (QC): 5 Walk 150 ft (QC): 5 1 Step (curb) (QC): 5 4 Steps (QC): 9 12 Steps (QC): 9 Picking up an Object (QC): 5 OT Halfway Goals Guitar Repairer Goals Time Frame: May 19, 2019 Eating (QC): 6 Oral Hygiene (QC): 6 Shower/Bathe Self (QC): 6 Upper Body Dressing (QC): 6 (met) Lower Body Dressing (QC): 6 On/Off Footwear (QC): 6 (met) Toileting Hygiene (QC): 6 Toilet/Commode Transfer (QC): 5 Additional Goals: 1-Demonstrate ADL Tasks, 2-Verbalize Understanding, 3- ImproveStrength/Oliverio 1=Demonstrate adherence to instructed precautions during ADL tasks. 2=Patient will verbalize/demonstrate understanding of assistive devices/modifications for ADL. 3=Patient will improve strength/tolerance for activity to enable patient to perform ADL's. Speech Halfway Goals Guitar Repairer Goals 1. Patient will improve cognitive-communication necessary for safety and daily living tasks with minimal assist. Met 2. Patient will maintain adequate nutrition/hydration via safe and effective swallow function. Met YULIA SULLIVAN OTR May 15, 2019 12:10
--- NOTE | 2019-05-15 12:40 | Therapy Team Discharge Summary ---
Therapy Discharge Summary Discharge Recommendations Date of Discharge May 12, 2019 at 17:00 Physical Therapy This patient admitted to ARU with dx of acute metabolic encephalopathy. Prior to her admission to acute care hospital, she was mod indep at home with intermittent assist as needed. Upon admission to this unit, pt was min assist with transfers, ambulated x 50 ft with min assist and needed heavy cues to complete tasks. Treatment has focused on functional strength and mobility training to progress her to a mod indep level to allow her to return home as before. At discharge, pt is mod indep with transfers and gait and able to to up/down a step. She has met all goals to a satisfactory level. Pt to discharge home with assist as she had before. DC PT Occupational Therapy Decreased Activ Tolerance, Decreased UE Strength, Impaired I ADL's, Impaired Self-Care Skills PT Custodial Goals Manufacturing Quality Inspector Goals PT Manufacturing Quality Inspector Goals Time Frame: Jun 03, 2019 Roll Left to Right (QC): 6 (met) Sit to Lying (QC): 6 (met) Lying-Sitting on Side/Bed(QC): 6 (met) Sit to Stand (QC): 5 (exceeded) Chair/Naw-jy-Qbjsj Xfer(QC): 5 (xceeded) Car Transfer (QC): 5 (unmet) Does the Patient Walk: Yes Walk 10 feet (QC): 5 (xceeded) Walk 10ft-Uneven Surface(QC): 5 (et) Walk 50ft with 2 Turns (QC): 5 (exceeded) Walk 150 ft (QC): 5 (exceeded) 1 Step (curb) (QC): 5 (met) 4 Steps (QC): 9 12 Steps (QC): 9 Picking up an Object (QC): 5 OT Manufacturing Quality Inspector Goals Custodial Goals Time Frame: May 19, 2019 Eating (QC): 6 Oral Hygiene (QC): 6 Shower/Bathe Self (QC): 6 Upper Body Dressing (QC): 6 (met) Lower Body Dressing (QC): 6 On/Off Footwear (QC): 6 (met) Toileting Hygiene (QC): 6 Toilet/Commode Transfer (QC): 5 Additional Goals: 1-Demonstrate ADL Tasks, 2-Verbalize Understanding, 3- ImproveStrength/Oliverio 1=Demonstrate adherence to instructed precautions during ADL tasks. 2=Patient will verbalize/demonstrate understanding of assistive devices/modifications for ADL. 3=Patient will improve strength/tolerance for activity to enable patient to perform ADL's. Speech Manufacturing Quality Inspector Goals Custodial Goals 1. Patient will improve cognitive-communication necessary for safety and daily living tasks with minimal assist. Met 2. Patient will maintain adequate nutrition/hydration via safe and effective swallow function. Met KAROLINA LASSITER PT May 15, 2019 12:40
== END 2019-05-12 17:00 | disposition home health service (06) | DRG 72 ==
PROVIDERS: ADMIT Internal Medicine; ATTEND Internal Medicine
DX: G93.41 Metabolic encephalopathy (principal); G62.9 Polyneuropathy, unspecified; K14.0 Glossitis; E78.00 Pure hypercholesterolemia, unspecified; I10 Essential (primary) hypertension; K21.9 Gastro-esophageal reflux disease without esophagitis; K59.09 Other constipation; M81.0 Age-related osteoporosis without current pathological fracture; I25.10 Atherosclerotic heart disease of native coronary artery without angina pectoris; M19.91 Primary osteoarthritis, unspecified site; M54.9 Dorsalgia, unspecified; H35.30 Unspecified macular degeneration; F41.9 Anxiety disorder, unspecified; F32.9 Major depressive disorder, single episode, unspecified; D63.8 Anemia in other chronic diseases classified elsewhere; Z87.01 Personal history of pneumonia (recurrent); Z90.710 Acquired absence of both cervix and uterus
CPT/HCPCS: 36415; 80053; 85025; 85027

== ENCOUNTER 2020-04-08 10:52 | Emergency (ER) | payer MEDICARE ==
[~2020-04-08] VITALS: Ht 149.8 cm; Wt 58.9 kg
[~2020-04-08 10:52] MED LIST changes: +ACET-2650 PO; +ALBU2.5V4 NEB; +ALPR.25T PO; -ALPR0.254 PO; +AMLO-250 PO; -AMLO5TAB9 PO; +ASPI-1238 PO; -ASPI-983 PO; +ASPI-999 PO; +CLN.1T PO; -CLON0.1T PO; +DULO20CA PO; +DULO30CA49 PO; +FERR-84 PO; +L.AC1CAP6 PO; +LOPE2TAB34 PO; +LOSA100T57; +LOSA100T57 PO; +MAGN400T29 PO; -MONT10TA26 PO; +MONT10TA97 PO; +MULT-141 PO; +MULT-567 PO; -MULT1TAB69 PO; +NAPR220T66 PO; +PANT40TA2 PO; -PANT40TA3 PO; +PANT40TA52 PO; +POTA10TA36 PO; +[UNRECOGNIZED DRUG - CODE] PO
[2020-04-08 11:38] LABS: BILIRUBIN,URINE NEGATIVE (NEGATIVE); CLARITY,URINE CLEAR; COLOR,URINE YELLOW; GLUCOSE, URINE (UA) NEGATIVE (NEGATIVE); KETONES,URINE NEGATIVE (NEGATIVE); LEUKOCYTE ESTERASE ,URINE NEGATIVE (NEGATIVE); NITRITE,URINE NEGATIVE (NEGATIVE); PH,URINE 8.5 (5-9); PROTEIN,URINE NEGATIVE (NEGATIVE)
--- NOTE | 2020-04-08 11:40 | ED General ---
General Chief Complaint: General Problems/Pain Stated Complaint: WEAKNESS,CONFUSION, Nursing Triage Note: PT TO [facility] WITH COMPLAINT OF WEAKNESS, CONFUSION, AND HEADACHE. STATES SYMPTOMS STARTED YESTERDAY. Nursing Sepsis Screen: No Definite Risk Source of Information: Patient Exam Limitations: No Limitations History of Present Illness Date Seen by Provider: Apr 08, 2020 Time Seen by Provider: 11:38 Initial Comments To ER with reports of weakness confusion and headache that began yesterday. When she states confusion she states that she is not actually confused she just has trouble getting the words to come out sometimes. She is never had symptoms like this before. No vision troubles, no weakness in any extremity. I spoke with the patient's daughter Britni as well. States the patient lives at home alone. She is generally weak but today she was unable to do the things that she typically is able to do. She did not seem to understand what Britni was saying to her on the phone, she forgot where things were at in the house. Daughter reports she has a history of sodium troubles and potassium troubles or infection has caused similar symptoms in the past. Timing/Duration: 1-2 Days Severity: Moderate Associated Systoms: Headaches Allergies and Home Medications Allergies Coded Allergies: tetracycline (Verified Allergy, Mild, 05/04/19) rash Home Medications ALPRAZolam 0.25 Mg Tablet, 0.25 MG PO HS, (Reported) ALPRAZolam 0.25 Mg Tablet, 0.25 MG PO DAILY PRN for ANXIETY, (Reported) Acetaminophen 650 Mg Tablet.er, 650 MG PO BID, (Reported) Amlodipine Besylate 5 Mg Tablet, 5 MG PO DAILY, (Reported) Duloxetine HCl 30 Mg Capsule.dr, 30 MG PO HS, (Reported) Ferrous Sulfate 325 Mg Tablet, 325 MG PO DAILY, (Reported) Gabapentin 100 Mg Capsule, 200 MG PO DAILY@1600, (Reported) TAKES 2 100 MG CAPS Losartan Potassium 100 Mg Tablet, 100 MG PO DAILY, (Reported) Magnesium Oxide 400 Mg Tablet, 400 MG PO BID, (Reported) Metoprolol Tartrate 25 Mg Tablet, 12.5 MG PO BID, (Reported) TAKE 1/2 OF 25 MG TAB Montelukast Sodium 10 Mg Tablet, 10 MG PO HS, (Reported) Naproxen Sodium 220 Mg Tablet, 220 MG PO DAILY@1200 PRN for PAIN-MILD (1-4), (Reported) Pantoprazole Sodium 40 Mg Tablet.dr, 40 MG PO DAILY, (Reported) Potassium Chloride 10 Meq Tab.er.prt, 10 MEQ PO DAILY, (Reported) Patient Home Medication List Home Medication List Reviewed: Yes Review of Systems Review of Systems Constitutional: see HPI EENTM: see HPI Respiratory: no symptoms reported Cardiovascular: no symptoms reported Genitourinary: no symptoms reported Musculoskeletal: no symptoms reported Skin: no symptoms reported Psychiatric/Neurological: No Symptoms Reported Hematologic/Lymphatic: No Symptoms Reported Past Nmggruf-Pvtlgw-Yibzrm Hx Patient Social History Alcohol Use: Denies Use Smoking Status: Never a Smoker 2nd Hand Smoke Exposure: No Recent Infectious Disease Expo: No Recent Hopitalizations: No Immunizations Up To Date Tetanus Booster (TDap): Unknown Date of Pneumonia Vaccine: Nov 08, 2014 Date of Influenza Vaccine: Dec 13, 2018 Seasonal Allergies Seasonal Allergies: No Past Medical History Surgeries: Yes Bowel Surgery, Hysterectomy, Orthopedic Respiratory: No Pneumonia Currently Using CPAP: No Currently Using BIPAP: No Cardiac: Yes High Cholesterol, Hypertension Neurological: Yes (acute rt sided weakness-probable CVA) Neuropathy, TIA Reproductive Disorders: Yes (complete hysterectomy in her 20's r/t infection "that didn't clear up") Sexually Transmitted Disease: No HIV/AIDS: No Bladder Infection Gastrointestinal: Yes (mx gallstones without cholecystitis) Gastroesophageal Reflux, Chronic Constipation, Chronic Diarrhea Musculoskeletal: Yes (bunions) Osteoporosis, Arthritis, Chronic Back Pain, Fractures Endocrine: No Cataract, Macular Degeneration Loss of Vision: Bilateral Hearing Impairment: Hard of Hearing Cancer: No Psychosocial: Yes Sleep Difficulties, Anxiety, Depression Integumentary: Yes (hx of yeast) Blood Disorders: No Family Medical History Cardiovascular disease 19 FATHER Heart Disease, Hypertension Physical Exam Vital Signs Vital Signs - First Documented 04/08/20 11:15 Temp 37.3 Pulse 68 Resp 20 B/P (MAP) 174/79 (110) Pulse Ox 97 O2 Delivery Room Air Capillary Refill : Less Than 3 Seconds Height, Weight, BMI Height: 4'10.00" Weight: 120lbs. 4.0oz. 54.000542av; 26.00 BMI Method:Stated General Appearance: No Apparent Distress, WD/WN Eyes: Bilateral Eye Normal Inspection, Bilateral Eye PERRL, Bilateral Eye EOMI Respiratory: No Accessory Muscle Use, No Respiratory Distress Cardiovascular: Regular Rate, Rhythm, Normal Peripheral Pulses Gastrointestinal: Normal Bowel Sounds, Non Tender, Soft Extremity: Normal Capillary Refill, Normal Inspection Neurologic/Psychiatric: Alert, Oriented x3 Skin: Normal Color, Warm/Dry Comments She carries on a conversation with me alert and oriented moves all extremities no motor or sensory deficits. No limb ataxia. Speech is clear. Progress/Results/Core Measures Suspected Sepsis Recent Fever Within 48 Hours: No Infection Criteria Present: None New/Unexplained Altered Menta: No Sepsis Screen: No Definite Risk SIRS Temperature: Pulse: 68 Respiratory Rate: 20 Laboratory Tests 04/08/20 11:45: White Blood Count 10.5 Blood Pressure 174 /79 Mean: 110 Laboratory Tests 04/08/20 11:45: Creatinine 1.03, INR Comment 0.9, Platelet Count 284, Total Bilirubin 0.5 Results/Orders Lab Results Laboratory Tests Test 04/08/20 11:27 04/08/20 11:45 Range/Units Urine Color YELLOW Urine Clarity CLEAR Urine pH 8.5 5-9 Urine Specific [place] 1.015 L 1.016-1.022 Urine Protein NEGATIVE NEGATIVE Urine Glucose (UA) NEGATIVE NEGATIVE Urine Ketones NEGATIVE NEGATIVE Urine Nitrite NEGATIVE NEGATIVE Urine Bilirubin NEGATIVE NEGATIVE Urine Urobilinogen 0.2 < = 1.0 MG/DL Urine Leukocyte Esterase NEGATIVE NEGATIVE Urine RBC (Auto) NEGATIVE NEGATIVE Urine RBC RARE /HPF Urine WBC 0-2 /HPF Urine Crystals NONE /LPF Urine Bacteria NEGATIVE /HPF Urine Casts NONE /LPF Urine Mucus NEGATIVE /LPF Urine Culture Indicated NO White Blood Count 10.5 4.3-11.0 10^3/uL Red Blood Count 4.18 3.80-5.11 10^6/uL Hemoglobin 12.3 11.5-16.0 g/dL Hematocrit 38 35-52 % Mean Corpuscular Volume 91 80-99 fL Mean Corpuscular Hemoglobin 29 25-34 pg Mean Corpuscular Hemoglobin Concent 32 32-36 g/dL Red Cell Distribution Width 12.7 10.0-14.5 % Platelet Count 284 130-400 10^3/uL Mean Platelet Volume 9.6 9.0-12.2 fL Immature Granulocyte % (Auto) 0 % Neutrophils (%) (Auto) 79 H 42-75 % Lymphocytes (%) (Auto) 15 12-44 % Monocytes (%) (Auto) 5 0-12 % Eosinophils (%) (Auto) 1 0-10 % Basophils (%) (Auto) 1 0-10 % Neutrophils # (Auto) 8.3 H 1.8-7.8 10^3/uL Lymphocytes # (Auto) 1.6 1.0-4.0 10^3/uL Monocytes # (Auto) 0.6 0.0-1.0 10^3/uL Eosinophils # (Auto) 0.1 0.0-0.3 10^3/uL Basophils # (Auto) 0.1 0.0-0.1 10^3/uL Immature Granulocyte # (Auto) 0.0 0.0-0.1 10^3/uL Prothrombin Time 12.7 12.2-14.7 SEC INR Comment 0.9 0.8-1.4 Sodium Level 134 L 135-145 MMOL/L Potassium Level 4.5 3.6-5.0 MMOL/L Chloride Level 96 L 98-107 MMOL/L Carbon Dioxide Level 28 21-32 MMOL/L Anion Gap 10 5-14 MMOL/L Blood Urea Nitrogen 15 7-18 MG/DL Creatinine 1.03 0.60-1.30 MG/DL Estimat Glomerular Filtration Rate 52 BUN/Creatinine Ratio 15 Glucose Level 100 70-105 MG/DL Calcium Level 9.5 8.5-10.1 MG/DL Corrected Calcium 9.2 8.5-10.1 MG/DL Total Bilirubin 0.5 0.1-1.0 MG/DL Aspartate Amino Transf (AST/SGOT) 15 5-34 U/L Alanine Aminotransferase (ALT/SGPT) 13 0-55 U/L Alkaline Phosphatase 112 40-136 U/L Total Protein 7.6 6.4-8.2 GM/DL Albumin 4.4 3.2-4.5 GM/DL Procalcitonin 0.06 <0.10 NG/ML My Orders Orders - GERARDO MARRERO OUTPLACEMENT CONSULTANT Cbc With Automated Diff (04/08/20 11:31) Comprehensive Metabolic Panel (04/08/20 11:31) Ua Culture If Indicated (04/08/20 11:31) Protime With Inr (04/08/20 11:31) Ct Head Wo (04/08/20 11:31) Chest 1 View, Ap/Pa Only (04/08/20 11:43) Procalcitonin (Pct) (04/08/20 11:43) Mri Brain W/O Contrast (04/08/20 12:11) Vital Signs/I&O 04/08/20 11:15 Temp 37.3 Pulse 68 Resp 20 B/P (MAP) 174/79 (110) Pulse Ox 97 O2 Delivery Room Air Capillary Refill : Less Than 3 Seconds Blood Pressure Mean: 110 Diagnostic Imaging Diagonstic Imaging: MRI Comments NAME: RISA LO [facility] REC#: [id number] PT STATUS: REG ER : 1940 PHYSICIAN: GERARDO MARRERO APRN ADMIT DATE: 04/08/20/ER Draft Date of Exam:04/08/20 MRI BRAIN W/O CONTRAST PROCEDURE: MR imaging of the brain without contrast. TECHNIQUE: Multiplanar, multisequence MR imaging of the brain was performed without contrast. INDICATION: Weakness and speech difficulty. FINDINGS: The ventricles and sulci are prominent, consistent with the patient's age. There is extensive periventricular and subcortical white matter signal abnormality noted, consistent with senescent change and chronic microvascular ischemia. There is no midline shift. No acute intra-axial or extra-axial hemorrhage is detected. The corpus callosum is unremarkable. The sella and parasellar structures are unremarkable. No diffusion restriction is identified to suggest acute ischemia. IMPRESSION: Chronic and senescent changes. No acute intracranial process is detected. Dictated on workstation # [id number] Dict: 04/08/20 1252 Trans: 04/08/20 1258 [id number] Interpreted by: CHRISTOPHER CABRAL MD Electronically signed by: Departure Communication (Admissions) I spoke with Dr. Tinsley and she agrees with the plan of care. We will discharged home and she will follow up with the patient this Wednesday at 9 AM. Impression Primary Impression: General weakness Additional Impression: Dysarthria Disposition: HOME, SELF-CARE Condition: Stable Departure-Patient Inst. Decision time for Depature: 13:02 Referrals: SANJEEV TINSLEY MD (PCP/Family) Primary Care Physician Patient Instructions: Dysarthria, Weakness ED Add. Discharge Instructions: 1. Follow-up with Dr. Tinsley this Wednesday at 9 AM. Return to ER before then for any worsening or changing symptoms. All discharge instructions reviewed with patient and/or family. Voiced understanding. Copy Copies To 1: SANJEEV TINSLEY MD, PETER J APRN Apr 08, 2020 11:40
[2020-04-08 11:51] LABS: BACTERIA,URINE NEGATIVE /HPF; RBC,URINE RARE /HPF; WBC,URINE 0-2 /HPF
[2020-04-08 11:54] LABS: BASOPHILS # (AUTO) 0.1 10^3/uL (0.0-0.1); BASOPHILS % (AUTO) 1 % (0-10); EOSINOPHILS # (AUTO) 0.1 10^3/uL (0.0-0.3); EOSINOPHILS % (AUTO) 1 % (0-10); HEMATOCRIT 38 % (35-52); HEMOGLOBIN 12.3 g/dL (11.5-16.0); LYMPHOCYTES # (AUTO) 1.6 10^3/uL (1.0-4.0); LYMPHOCYTES % (AUTO) 15 % (12-44); MEAN CORPUSCULAR HEMOGLOBIN 29 pg (25-34); MEAN CORPUSCULAR HGB CONC 32 g/dL (32-36); MEAN CORPUSCULAR VOLUME 91 fL (80-99); MEAN PLATELET VOLUME 9.6 fL (9.0-12.2); MONOCYTES # (AUTO) 0.6 10^3/uL (0.0-1.0); MONOCYTES % (AUTO) 5 % (0-12); NEUTROPHILS # (AUTO) 8.3 10^3/uL (1.8-7.8); NEUTROPHILS % (AUTO) 79 % (42-75); PLATELET COUNT 284 10^3/uL (130-400); WHITE BLOOD COUNT 10.5 10^3/uL (4.3-11.0)
[2020-04-08 12:07] LABS: INR 0.9 (0.8-1.4); PROTHROMBIN TIME PATIENT 12.7 SEC (12.2-14.7)
[2020-04-08 12:09] LABS: ALBUMIN 4.4 GM/DL (3.2-4.5); POTASSIUM 4.5 MMOL/L (3.6-5.0)
[2020-04-08 12:10] LABS: CALCIUM 9.5 MG/DL (8.5-10.1)
[2020-04-08 12:12] LABS: TOTAL PROTEIN 7.6 GM/DL (6.4-8.2)
--- NOTE | 2020-04-08 12:12 | Diagnostic Imaging Report ---
INDICATION: Confusion and altered mental status. EXAMINATION: Frontal chest obtained at 12:03 p.m. and compared to 09/04/2015. FINDINGS: Heart and mediastinal silhouette are normal in appearance. There is unchanged elevation of the right diaphragm. There is no focal infiltrate or pneumothorax or pleural fluid. IMPRESSION: No acute process in the chest. No change from 09/04/2015. Dictated by: Dictated on workstation # [id number]
[2020-04-08 12:13] LABS: BILIRUBIN,TOTAL 0.5 MG/DL (0.1-1.0)
[2020-04-08 12:15] LABS: CREATININE SERUM 1.03 MG/DL (0.60-1.30)
--- NOTE | 2020-04-08 12:21 | Diagnostic Imaging Report ---
CLINICAL INDICATION: Patient with speech trouble, confusion, and weakness. EXAM: Axial CT scan of the brain without IV contrast with coronal and sagittal reformatted images. Auto Exposure Controls were utilized during the CT exam to meet ALARA standards for radiation dose reduction. COMPARISON: CT angiogram of the head with and without contrast dated 11/30/2014. FINDINGS: There is no evidence of acute cerebral infarct, intracranial hemorrhage, or gross mass effect. The brain parenchymal volume appears appropriate for patient's age. Stable small chronic cerebral infarct involving the left occipital lobe. Stable small multiple areas of chronic cerebral infarct involving the right caudate and left basal ganglia regions. There are multiple patchy and confluent areas of low-attenuation white matter changes seen throughout both cerebral hemispheres and periventricular regions. There is normal kirby-white matter distinction. There is no significant midline shift or herniation. There is no evidence of hydrocephalus. The basal cisterns are unremarkable. The skull, extracranial soft tissue, and orbits are unremarkable. There is a small amount of frothy secretions in the sphenoid sinus. Temporal bones show no significant abnormality. IMPRESSION: 1: Stable CT scan of the brain with no evidence of an acute intracranial process. 2: Stable small areas of chronic cerebral infarct involving the left occipital lobe and bilateral basal ganglia. Dictated by: Dictated on workstation # [id number]
--- NOTE | 2020-04-08 12:58 | Diagnostic Imaging Report ---
PROCEDURE: MR imaging of the brain without contrast. TECHNIQUE: Multiplanar, multisequence MR imaging of the brain was performed without contrast. INDICATION: Weakness and speech difficulty. FINDINGS: The ventricles and sulci are prominent, consistent with the patient's age. There is extensive periventricular and subcortical white matter signal abnormality noted, consistent with senescent change and chronic microvascular ischemia. There is no midline shift. No acute intra-axial or extra-axial hemorrhage is detected. The corpus callosum is unremarkable. The sella and parasellar structures are unremarkable. No diffusion restriction is identified to suggest acute ischemia. IMPRESSION: Chronic and senescent changes. No acute intracranial process is detected. Dictated by: Dictated on workstation # [id number]
[2020-04-08] MEDS ORDERED: KETOROLAC 30 MG/ML VIAL IVP ONE (13:15)
[2020-04-08 13:35] VITALS: BP 155/78
== END 2020-04-08 13:35 | disposition home or self-care (01) ==
LOC: EDUNIT# 10:52 → ER 10:54
DX: R53.1 Weakness (principal); R47.1 Dysarthria and anarthria; F41.9 Anxiety disorder, unspecified; F32.9 Major depressive disorder, single episode, unspecified; I10 Essential (primary) hypertension; K21.9 Gastro-esophageal reflux disease without esophagitis; Z88.1 Allergy status to other antibiotic agents; Z86.73 Personal history of transient ischemic attack (TIA), and cerebral infarction without residual deficits; Z82.49 Family history of ischemic heart disease and other diseases of the circulatory system
CPT/HCPCS: 36415; 70450; 70551; 71045; 80053; 81000; 84145; 85025; 85610

== ENCOUNTER → 2020-09-18 | Outpatient (CLI) | payer MEDICARE ==
[~2020-09-18] MED LIST changes: -FOLI0.8T PO; +FOLI0.8T4 PO; -LISI10TA2 PO; +LISI10TA25 PO; +MONT10TA32 PO; -MONT10TA97 PO
--- NOTE | 2020-09-18 17:07 | Diagnostic Imaging Report ---
HISTORY: Cough COMPARISON: 04/08/2020 TECHNIQUE: 2 views of the chest FINDINGS: There is elevation of the right hemidiaphragm and eventration of the left hemidiaphragm, stable since the prior study. There is marked exaggeration of the thoracic kyphosis with multilevel degenerative changes present. No pleural effusion or pneumothorax is seen. The cardiac silhouette is stable in size. There is aortic atherosclerosis. IMPRESSION: 1. Chronic findings in the chest with no acute pulmonary abnormality seen. Dictated by: Dictated on workstation # [id number]
== END ==
LOC: RAD 14:33
PROVIDERS: ATTEND Nurse Practitioner Family
DX: R05 Cough (principal)
CPT/HCPCS: 71046